=== PATIENT | female | born 1970 | race African-American/Black ===

== ENCOUNTER 2017-06-04 17:48 | Inpatient (IN) | payer MEDICARE, MEDICAID ==
[~2017-06-04] VITALS: Ht 160 cm; Wt 170.2 kg
[2017-06-04] MEDS ORDERED: IV NORMAL SALINE 1000ML BAG 1,000 ML IV ONE (18:30)
[2017-06-04] MEDS ORDERED: ONDANSETRON PF 4 MG/2 ML VIAL. IV ONE (18:30)
[2017-06-04] MEDS ORDERED: HYDROmorphone 2 MG/ML VIAL IV ONE (18:30)
[2017-06-04 18:48] LABS: BASO # 0.1 x10^3/uL (0.0-0.2); BASO % 1 % (0-3); EOS % 0 % (0-3); HEMATOCRIT 32.3 % (36.0-47.0); HEMOGLOBIN 10.6 g/dL (12.0-15.5); LYMPH # 1.1 x10^3/uL (1.0-4.8); LYMPH % 9 % (24-48); MEAN CORPUSCULAR HEMOGLOBIN 25 pg (25-35); MEAN CORPUSCULAR HGB CONC 33 g/dL (31-37); MEAN CORPUSCULAR VOLUME 76 fL (79-100); MONO % 6 % (0-9); NEUT % 84 % (31-73); PLATELET COUNT 514 x10^3/uL (140-400); RED BLOOD COUNT 4.26 x10^6/uL (3.50-5.40); RED CELL DISTRIBUTION WIDTH 17.9 % (11.5-14.5); WHITE BLOOD COUNT 11.4 x10^3/uL (4.0-11.0)
[2017-06-04 18:55] LABS: CALCIUM 10.2 mg/dL (8.5-10.1); CREATININE 2.5 mg/dL (0.6-1.0); GFR 20.6
[2017-06-04 19:00] LABS: ALBUMIN 2.8 g/dL (3.4-5.0); ALBUMIN/GLOBULIN RATIO 0.4 (1.0-1.7); TOTAL BILIRUBIN 0.8 mg/dL (0.2-1.0); TOTAL PROTEIN 9.6 g/dL (6.4-8.2)
[2017-06-04] MEDS ORDERED: ACETAMINOPHEN 325 MG TABLET. PO PRN (19:15)
[2017-06-04] MEDS ORDERED: ONDANSETRON PF 4 MG/2 ML VIAL. IV PRN (19:15)
--- NOTE | 2017-06-04 19:25 | PHYS DOC ---
Past Medical History Past Medical History: Arthritis, CHF, Other Additional Past Medical Histor: Morbid Obesity Past Surgical History: Additional Past Surgical Histo: Neck Alcohol Use: None Drug Use: None Adult General Chief Complaint Chief Complaint: KNEE SWELLING HPI HPI Patient is a 47 year old female who presents here today complaining of bilateral knee pains of been hurting her for several months now as well as decreased by mouth intake for several months as well. Patient reports she has a history of CHF and arthritis. Patient is morbidly obese. Patient reports she does not have a primary care physician is not seek any medical help in almost 2- 3 years. Patient reports her last hospital admission was for congestive heart failure approximately 2-3 years ago however she has been noncompliant with any medications since she does not have a primary care physician. Patient reports that she lives with her 20 [id number] son who helps take care of her. She reports that he is a land surveyor manager at [employer] and at [employer]. She reports that he assists her with her activities of daily living. She reports she has no nursing help at home. Patient reports that she is nonambulatory and is bedridden however she is able to scoot over the end of the bed to go the bathroom. Patient reports that her son helps care for her for other needs. Patient denies any fevers shakes chills. Patient has any diarrhea. Patient has a dysuria frequency or urgency. Patient reports she's had nonproductive cough. Patient denies any URI symptoms otherwise. Patient portion had nausea vomiting 3 -4 times today. Patient reports decreased by mouth intake times several months now. Patient denies any history of diabetes hypertension liver longer kidney problems. Patient denies any history of strokes or MIs in the past. Patient is not allergic to any medications. Patient denies any recent trauma to her knees. Patient does not appear to have any acute complaints at this time that I'm able to pinpoint. I have asked the patient what her expectations from the emergency department visit today are and she reports "stop my legs are hurting ". Patient reports that she has no primary care physician to assist her with her pain and that she just takes Tylenol Patient's physical exam finding in the ED was significant for a 47-year-old female who is morbidly obese and is not well. Patient has tenderness palpation to both knees. Patient is morbidly obese and her exam is very difficult to assess secondary to her obesity and inability to move her upper or lower extremities well. Patient's heart was regular rate and rhythm. Lungs were clear without any wheezing rales or rhonchi. Abdomen was soft nontender no rebound or guarding. Patient's lower extremities were obese and is unable to assess whether not she has edema or obesity. Patient has pain with any range of motion to her lower extremities. Patient's labs were significant for acute renal failure. This appears likely be more chronic than acute however. Patient's BUN/creatinine were 144 and 2.5. Patient had a normal anion gap and a normal bicarbonate. Patient's chloride is 90 in her bicarbonate level was 21. Assessment and plan: This is a 47-year-old female who presents here today secondary to generalized pain and weakness and inability to eat for several months now. Patient has been noncompliant with her heart failure regimen secondary to no primary care physician. Patient's last today are consistent with acute renal failure versus chronic renal failure. Patient's BUNs is 140 4T.5. I believe that this is more likely secondary to dehydration with an element of likely chronic renal insufficiency. Patient will be hydrated and will monitor her I's and O's. We will need to admit the patient for further evaluation of her renal failure/dehydration and have nephrology assist with managing her renal status. Patient was given a dose of Dilaudid here in the ED to assist her with her pain. Laboratory Tests Test 06/04/17 18:37 White Blood Count 11.4 x10^3/uL Red Blood Count 4.26 x10^6/uL Hemoglobin 10.6 g/dL Hematocrit 32.3 % Mean Corpuscular Volume 76 fL Mean Corpuscular Hemoglobin 25 pg Mean Corpuscular Hemoglobin Concent 33 g/dL Red Cell Distribution Width 17.9 % Platelet Count 514 x10^3/uL Neutrophils (%) (Auto) 84 % Lymphocytes (%) (Auto) 9 % Monocytes (%) (Auto) 6 % Eosinophils (%) (Auto) 0 % Basophils (%) (Auto) 1 % Neutrophils # (Auto) 9.6 x10^3uL Lymphocytes # (Auto) 1.1 x10^3/uL Monocytes # (Auto) 0.6 x10^3/uL Eosinophils # (Auto) 0.0 x10^3/uL Basophils # (Auto) 0.1 x10^3/uL Sodium Level 130 mmol/L Potassium Level 4.0 mmol/L Chloride Level 90 mmol/L Carbon Dioxide Level 21 mmol/L Anion Gap 19 Blood Urea Nitrogen 144 mg/dL Creatinine 2.5 mg/dL Estimated GFR (Cockcroft-Gault) 20.6 BUN/Creatinine Ratio 58 Glucose Level 109 mg/dL Calcium Level 10.2 mg/dL Total Bilirubin 0.8 mg/dL Aspartate Amino Transf (AST/SGOT) 20 U/L Alanine Aminotransferase (ALT/SGPT) 11 U/L Alkaline Phosphatase 103 U/L Total Protein 9.6 g/dL Albumin 2.8 g/dL Albumin/Globulin Ratio 0.4 Lipase 245 U/L Current Medications Medications (Trade) Dose Ordered Sig/Arcelia Route PRN Reason Start Time Stop Time Status Last Admin Dose Admin Ondansetron HCl (Zofran) 4 mg 1X ONCE IV 06/04/17 18:30 06/04/17 18:31 DC 06/04/17 18:59 4 MG Sodium Chloride 1,000 ml @ 1,000 mls/hr 1X ONCE IV 06/04/17 18:30 06/04/17 19:29 06/04/17 18:58 1,000 MLS/HR Hydromorphone HCl (Dilaudid) 0.5 mg 1X ONCE IV 06/04/17 18:30 06/04/17 18:31 DC 06/04/17 19:00 0.5 MG Ondansetron HCl (Zofran) 4 mg PRN Q8HRS PRN IV NAUSEA/VOMITING 06/04/17 19:15 06/05/17 19:14 Fentanyl Citrate (Fentanyl 2ml Vial) 50 mcg PRN Q2HR PRN IV PAIN 06/04/17 19:15 06/05/17 19:14 Sodium Chloride 1,000 ml @ 150 mls/hr Q6H40M IV 06/04/17 19:05 06/05/17 19:04 Acetaminophen (Tylenol) 650 mg PRN Q4HRS PRN PO FEVER 06/04/17 19:15 06/05/17 19:14 Review of Systems Review of Systems Constitutional: Denies fever or chills [] Eyes: Denies change in visual acuity, redness, or eye pain [] HENT: Denies nasal congestion or sore throat [] All other review systems are negative except as documented in the history of present illness portion. Current Medications Current Medications Current Medications Medications (Trade) Dose Ordered Sig/Arcelia Start Time Stop Time Status Last Admin Dose Admin Acetaminophen (Tylenol) 650 mg PRN Q4HRS PRN 06/04/17 19:15 06/05/17 19:14 DC 06/05/17 13:02 650 MG Fentanyl Citrate (Fentanyl 2ml Vial) 50 mcg PRN Q2HR PRN 06/04/17 19:15 06/05/17 19:14 DC 06/05/17 15:51 50 MCG Hydromorphone HCl (Dilaudid) 0.5 mg 1X ONCE 06/04/17 18:30 06/04/17 18:31 DC 06/04/17 19:00 0.5 MG Ondansetron HCl (Zofran) 4 mg PRN Q8HRS PRN 06/04/17 19:15 06/05/17 19:14 DC 06/05/17 15:50 4 MG Sodium Chloride 1,000 ml @ 150 mls/hr Q6H40M 06/04/17 19:05 06/05/17 19:04 DC 06/05/17 14:55 150 MLS/HR Allergies Allergies Allergies Coded Allergies Type Severity Reaction Last Updated Verified No Known Drug Allergies 06/04/17 No Physical Exam Physical Exam Constitutional: Morbidly obese. HENT: Normocephalic, atraumatic, bilateral external ears normal, Eyes: , EOMI, Neck: Normal range of motion, Cardiovascular:Heart rate regular rhythm, Lungs & Thorax: Bilateral breath sounds clear to auscultation [] Abdomen: Bowel sounds normal, Skin: Warm, dry, Extremities: Tenderness to palpation and with range of motion to her lower 70s. Neurologic: Alert and oriented X 3, normal motor function, normal sensory function, no focal deficits noted. [] Psychologic: Affect normal, judgement normal, mood normal. [] Current Patient Data Vital Signs Vital Signs Date Time Temp Pulse Resp B/P (MAP) Pulse Ox O2 Delivery O2 Flow Rate FiO2 06/04/17 19:20 118 106/63 (77) 99 Room Air 06/04/17 19:00 20 06/04/17 17:48 98.8 98.8 Lab Values Laboratory Tests Test 06/04/17 18:37 White Blood Count 11.4 x10^3/uL (4.0-11.0) H Red Blood Count 4.26 x10^6/uL (3.50-5.40) Hemoglobin 10.6 g/dL (12.0-15.5) L Hematocrit 32.3 % (36.0-47.0) L Mean Corpuscular Volume 76 fL (79-100) L Mean Corpuscular Hemoglobin 25 pg (25-35) Mean Corpuscular Hemoglobin Concent 33 g/dL (31-37) Red Cell Distribution Width 17.9 % (11.5-14.5) H Platelet Count 514 x10^3/uL (140-400) H Neutrophils (%) (Auto) 84 % (31-73) H Lymphocytes (%) (Auto) 9 % (24-48) L Monocytes (%) (Auto) 6 % (0-9) Eosinophils (%) (Auto) 0 % (0-3) Basophils (%) (Auto) 1 % (0-3) Neutrophils # (Auto) 9.6 x10^3uL (1.8-7.7) H Lymphocytes # (Auto) 1.1 x10^3/uL (1.0-4.8) Monocytes # (Auto) 0.6 x10^3/uL (0.0-1.1) Eosinophils # (Auto) 0.0 x10^3/uL (0.0-0.7) Basophils # (Auto) 0.1 x10^3/uL (0.0-0.2) Sodium Level 130 mmol/L (136-145) L Potassium Level 4.0 mmol/L (3.5-5.1) Chloride Level 90 mmol/L (98-107) L Carbon Dioxide Level 21 mmol/L (21-32) Anion Gap 19 (6-14) H Blood Urea Nitrogen 144 mg/dL (7-20) H Creatinine 2.5 mg/dL (0.6-1.0) H Estimated GFR (Cockcroft-Gault) 20.6 BUN/Creatinine Ratio 58 (6-20) H Glucose Level 109 mg/dL (70-99) H Calcium Level 10.2 mg/dL (8.5-10.1) H Total Bilirubin 0.8 mg/dL (0.2-1.0) Aspartate Amino Transferase (AST) 20 U/L (15-37) Alanine Aminotransferase (ALT) 11 U/L (14-59) L Alkaline Phosphatase 103 U/L (46-116) Total Protein 9.6 g/dL (6.4-8.2) H Albumin 2.8 g/dL (3.4-5.0) L Albumin/Globulin Ratio 0.4 (1.0-1.7) L Lipase 245 U/L (73-393) Laboratory Tests 06/04/17 18:37 Laboratory Tests 06/04/17 18:37 EKG EKG [] Radiology/Procedures Radiology/Procedures [] Course & Med Decision Making Course & Med Decision Making Pertinent Labs and Imaging studies reviewed. (See chart for details) [] Dragon Disclaimer Dragon Disclaimer This electronic medical record was generated, in whole or in part, using a voice recognition dictation system. Departure Departure Impression: Primary Impression: Acute renal failure Additional Impressions: Chronic renal insufficiency Dehydration Lower extremity pain Disposition: 01 HOME, SELF-CARE Admitting Physician: Other (reusch) Condition: STABLE Problem Qualifiers CRAIG RENE MD Jun 04, 2017 19:24
[2017-06-04] MEDS: IV NORMAL SALINE 1000ML BAG 1,000 ML IV SCH ×2 (20:42→23:07)
[2017-06-04] MEDS: fentaNYL PF VIAL 100 MCG/2 ML VIAL IV PRN (23:07)
[2017-06-04 23:59] VITALS: BP 120/69
--- NOTE | 2017-06-05 01:37 | HP ---
ADMIT DATE: 06/04/2017 CHIEF COMPLAINT: Knee pain; acute kidney injury. HISTORY OF PRESENT ILLNESS: The patient is a 47-year-old -[place] woman with catastrophic obesity, essentially bedbound who presented to the Emergency Room with bilateral knee pains. She relates that she has been diagnosed with arthritis in her knees, actually has been hurting for quite a while, but today the pain got significantly worse. She also complains of decreased p.o. intake for several months because food is not tasting right. She denies any nausea or vomiting or abdominal pain. She also reports a history of CHF, but does not have a primary care physician and has not been seen by a physician in the past couple to 3 years. She does not have a history of diabetes or high blood pressure. In the Emergency Room, the patient was found with a BUN of 144 and a creatinine of 2.5. Electrolytes with a sodium of 130, potassium 4.0, chloride at 90. The patient was therefore admitted with suspected acute kidney injury. PAST MEDICAL HISTORY: CHF and arthritis. FAMILY HISTORY: Unknown. SOCIAL HISTORY: Lives with her son. No toxic habits. ALLERGIES: No known drug allergies. HOME MEDICATIONS: None. REVIEW OF SYSTEMS: Positive as per HPI. Rest of organ system review is negative. PHYSICAL EXAMINATION: VITAL SIGNS: From today show a blood pressure of 124/70, heart rate at 106, respiratory rate at 20. She is afebrile. GENERAL: This is a massively obese 47-year-old -[place] woman, awake, in no acute distress, although seems anxious. HEENT: Shows no scleral icterus. NECK: Short and thick. LUNGS: Clear anteriorly, distant breath sounds. HEART: Regular rate and rhythm. ABDOMEN: Show no pitting edema. SKIN: Warm, soft and dry. There is a superficial abrasion on her pannus on the right abdomen. LABORATORY DATA: CBC with a WBC of 11.4, hemoglobin 10.6, platelets with an MCV of 76 and platelets of 514. Chemistries with a BUN and creatinine of 144 and 2.5, sodium of 130, potassium at 4.0. LFTs within normal. Glucose at 109, calcium at 10.2, albumin at 2.8. ASSESSMENT AND PLAN: The patient is a 47-year-old morbidly obese woman with known history of congestive heart failure, now presenting with generalized malaise, myalgias and potential weight loss and poor appetite for several months. She was found with acute possibly on chronic kidney injury. She will be started on IV fluids. Electrolytes will be repleted. Nephrology consult will be obtained. I suspect that some of the renal failure is actually secondary to dehydration, possibly the patient is being unable to take care of herself when son leaves and goes to work and may need placement. As the patient is chronically bedridden, Lovenox can be omitted and (and should not be used with her current creatinine), will start on H2 blockers b.i.d. as well. COLLINS MENDOZA MD DR: LICO/nts JOB#: [id number] / [id number] CHRIS
[2017-06-05] MEDS: fentaNYL PF VIAL 100 MCG/2 ML VIAL IV PRN ×5 (02:05→15:51)
[2017-06-05 03:59] VITALS: BP 116/72
--- NOTE | 2017-06-05 05:19 | ACF ---
Admission Forms Criteria RENAL FAILURE, ACUTE Clinical Indications for Admission to Inpatient Care ( Place 'X' for any and all applicable criteria): Admission is indicated for ALL (if I & II) or III of the following [A](2)(3)(4)( 5)(6)(7): [ ]I. Acute renal failure as indicated by ANY ONE of the following: [ ]a) A 3-fold rise in serum creatinine from baseline [ ]b) Serum creatinine greater than 4 mg/dL (354 micromoles/L) with an acute rise greater than 0.5 mg/dL (44.2 micromoles/L) [ ]c) Reduction of more than 75% in estimated glomerular filtration rate from baseline [ ]d) Estimated glomerular filtration rate less than 35 mL/min/1.73m2 (0.59mL/sec/1.73m2)in a child up to 18 years of age [ ]e) Anuria indicated by ALL of the following: [ ]i) Adequate volume status [ ]ii) Cessation of urine output indicated by ANY ONE of the following: [ ]1) Urine output less than 0.3 mL/kg/hr for 24 hours [ ]2) Anuria (urine output less than 0.1 mL/kg/ hr) for 12 hours [ ] II. Renal failure cannot be managed in an outpatient setting or observational care setting as indicating by ANY ONE of the following: [ ]a) Altered mental status that is severe or persistent [ ]b) Volume overload or Respiratory distress (eg, clinically significant pulmonary edema) that is severe or persistent [ ]c) Cardiac arrhythmias of immediate concern [ ]d) Hemodynamic instability [ ]e) Clinically significant electrolyte abnormality that requires inpatient care (eg, hyperkalemia with severe ECG findings)[B] [ ]f) Clinically significant metabolic abnormality (eg, acidosis) that is severe or persistent [ ]g) Acute treatment of renal failure (eg, renal replacement therapy) not feasible or appropriate in observational care setting [ ]h) Clinical situation too unstable or uncertain (eg, inadequate urine output, ongoing decline in renal function, etiology unclear) [ ]i) Necessary support and caregiver ability to comply with outpatient treatment cannot be arranged in observation care timeframe (eg, within 24 hours) [ ]j) Other significant finding or clinical condition judged not to be within scope of observation care [X]III.General contraindications and/or Inappropriate clinical situations for Observational Care in patients with Acute Renal Failure, when ANY ONE of the following is required: [X]a) Prediction of prolongation of LOS based on ANY ONE of the following may be considered as a contraindication for observational care 2, 3, 4, 5, 6, 7, 8 , 9, 10, 11 [ ]i) Age > 65 yrs. [ ]ii) Patient arriving by ambulance [ ]iii) Patient with high acuity [X]iv) Patient requiring vital sign monitoring [ ]v) Patient on IV medication [ ]b) Systolic blood pressures 180mmHg 3,12 [ ]c) Patient with altered mental status including delirium and other alteration of consciousness, (3) [ ]d) Patient whose discharge disposition will be to a [facility]p home or rehabilitation home should not be managed in Emergency Department Observation Unit. CMS rule requires 3 days hospital stay before such placement.3,13 [ ]e) Patient with failure to thrive due to broad array of etiologies 3, 16,17 [ ]f) Inability to ambulate 3,14 Extended stay beyond goal length of stay may be needed for(13) [ ]a) Continuing uremic complications [ ]b) Care for comorbidities [ ]c) acute renal failure [ ]d) Need for dialysis The original [employer] content created by [employer] has been revised. The portions of the content which have been revised are identified through the use of italic text or in bold, and [facility] has neither reviewed nor approved the modified material. All other unmodified content is copyright [employer]. Please see references footnoted in the original [facility] edition 2016 Admission Criteria Met?: Yes JULEE DORSEY Jun 05, 2017 05:19
[2017-06-05 07:00] VITALS: BP 101/69
[2017-06-05 07:08] LABS: CALCIUM 8.2 mg/dL (8.5-10.1); CREATININE 1.8 mg/dL (0.6-1.0); GFR 36.5; POTASSIUM 3.8 mmol/L (3.5-5.1)
[2017-06-05] MEDS: IV NORMAL SALINE 1000ML BAG 1,000 ML IV SCH ×2 (08:40→14:55)
--- NOTE | 2017-06-05 09:14 | PDOC ---
PROGRESS NOTES Chief Complaint Chief Complaint PHILIP ASSESSMENT AND PLAN; 1. PHILIP/?CKD: improving, with uremia resolved (? BUN 144-11 in 12hrs?). suspect at least component of dehydration. rpt BMP 2. CHF: by hx; has not seen MD in several years, no meds. echo, cardiology consult 3. Hyponatremia: resolved 4. Hypokalemia: resolved 5. Knee pain: poss OA. obtain flat films. treat symptomatically for now. 6. Decub ulcers: wound care consult 7. FTT: OT/PT eval; case management for placement 8. Depression: new dx. start ativan, zoloft 8. Prophylaxis: SCDs History of Present Illness History of Present Illness everything is painful; crying. Vitals Vitals Vital Signs Date Time Temp Pulse Resp B/P (MAP) Pulse Ox O2 Delivery O2 Flow Rate FiO2 06/05/17 08:40 100 06/05/17 07:56 18 06/05/17 03:59 98.5 105 116/72 (87) Room Air 98.5 Physical Exam Physical Exam flat affect, tearful General: Alert, No acute distress Heart: Regular rate Lungs: Clear Abdomen: Normal bowel sounds, Other (massive obesity) Extremities: No edema Skin: Other (superficial desquamation are on R lat pannus, pressure ulcers) Labs LABS Laboratory Tests Test 06/04/17 18:37 06/05/17 05:40 White Blood Count 11.4 x10^3/uL (4.0-11.0) Red Blood Count 4.26 x10^6/uL (3.50-5.40) Hemoglobin 10.6 g/dL (12.0-15.5) Hematocrit 32.3 % (36.0-47.0) Mean Corpuscular Volume 76 fL (79-100) Mean Corpuscular Hemoglobin 25 pg (25-35) Mean Corpuscular Hemoglobin Concent 33 g/dL (31-37) Red Cell Distribution Width 17.9 % (11.5-14.5) Platelet Count 514 x10^3/uL (140-400) Neutrophils (%) (Auto) 84 % (31-73) Lymphocytes (%) (Auto) 9 % (24-48) Monocytes (%) (Auto) 6 % (0-9) Eosinophils (%) (Auto) 0 % (0-3) Basophils (%) (Auto) 1 % (0-3) Neutrophils # (Auto) 9.6 x10^3uL (1.8-7.7) Lymphocytes # (Auto) 1.1 x10^3/uL (1.0-4.8) Monocytes # (Auto) 0.6 x10^3/uL (0.0-1.1) Eosinophils # (Auto) 0.0 x10^3/uL (0.0-0.7) Basophils # (Auto) 0.1 x10^3/uL (0.0-0.2) Sodium Level 130 mmol/L (136-145) 141 mmol/L (136-145) Potassium Level 4.0 mmol/L (3.5-5.1) 3.8 mmol/L (3.5-5.1) Chloride Level 90 mmol/L (98-107) 103 mmol/L (98-107) Carbon Dioxide Level 21 mmol/L (21-32) 31 mmol/L (21-32) Anion Gap 19 (6-14) 7 (6-14) Blood Urea Nitrogen 144 mg/dL (7-20) 16 mg/dL (7-20) Creatinine 2.5 mg/dL (0.6-1.0) 1.8 mg/dL (0.6-1.0) Estimated GFR (Cockcroft-Gault) 20.6 36.5 BUN/Creatinine Ratio 58 (6-20) Glucose Level 109 mg/dL (70-99) 139 mg/dL (70-99) Calcium Level 10.2 mg/dL (8.5-10.1) 8.2 mg/dL (8.5-10.1) Total Bilirubin 0.8 mg/dL (0.2-1.0) Aspartate Amino Transf (AST/SGOT) 20 U/L (15-37) Alanine Aminotransferase (ALT/SGPT) 11 U/L (14-59) Alkaline Phosphatase 103 U/L (46-116) Total Protein 9.6 g/dL (6.4-8.2) Albumin 2.8 g/dL (3.4-5.0) Albumin/Globulin Ratio 0.4 (1.0-1.7) Lipase 245 U/L (73-393) COLLINS MENDOZA MD Jun 05, 2017 09:13
--- NOTE | 2017-06-05 09:24 | PDOC2 ---
CONSULT Date of Consult Date of Consult DATE: 06/05/17 TIME: :22 Reason for Consult Reason for Consult: PHILIP Referring Physician Referring Physician: Dr Villarreal Identification/Chief Complaint Chief Complaint Knee pain Problems: Source Source: Chart review, Patient History of Present Illness Reason for Visit: as dictated Social History No ALCOHOL: none Drugs: None Lives: with Family Current Problem List Problem List Problems Medical Problems: (1) Acute renal failure Status: Acute (2) Chronic renal insufficiency Status: Acute (3) Dehydration Status: Acute (4) Lower extremity pain Status: Acute Current Medications Current Medications Current Medications Ondansetron HCl (Zofran) 4 mg 1X ONCE IV Last administered on 06/04/17 18:59 ; Start 06/04/17 at 18:30; Stop 06/04/17 at 18:31; Status DC Sodium Chloride 1,000 ml @ 1,000 mls/hr 1X ONCE IV Last administered on 18:58; Start 06/04/17 at 18:30; Stop 06/04/17 at 19:29; Status DC Hydromorphone HCl (Dilaudid) 0.5 mg 1X ONCE IV Last administered on 06/04/17 19:00; Start 06/04/17 at 18:30; Stop 06/04/17 at 18:31; Status DC Ondansetron HCl (Zofran) 4 mg PRN Q8HRS PRN IV NAUSEA/VOMITING; Start 06/04/17 at 19:15; Stop 06/05/17 at 19:14 Fentanyl Citrate (Fentanyl 2ml Vial) 50 mcg PRN Q2HR PRN IV PAIN Last administered on 06/05/17 07:56; Start 06/04/17 at 19:15; Stop 06/05/17 at 19:14 Sodium Chloride 1,000 ml @ 150 mls/hr Q6H40M IV Last administered on 08:40; Start 06/04/17 at 19:05; Stop 06/05/17 at 19:04 Acetaminophen (Tylenol) 650 mg PRN Q4HRS PRN PO FEVER; Start 06/04/17 at 19:15 ; Stop 06/05/17 at 19:14 Allergies Allergies: Coded Allergies: No Known Drug Allergies (Unverified , 06/04/17) ROS Review of System GEN: no Fevers no Chills EYES: no new Visual Complaints ENT: no EN Drainage no Hearing deficiets CVS: no Orthopnea no CP RESP: no SOB no CARTER GI: + Nausea + Vomiting : no Dysuria no Urgency dec UO HEME: no easy bruising no Palp Ly Nodes NEURO no Focal Weakness no Sz PSYCH: no Suicidal Ideation ? Depression + Anxiety at times SKIN: no Rashes ENDO: no Polyuria or Polydipsia no Hot/Cold Intolerance MU SK: + Arthraigia Knees no Myalgia Physical Exam Physical Exam General Appearance: Awake Alert Oriented x 2-3 In min Distress from knee pain; morbidly obese bedbound x 5 + yrs Eyes: VIsion Unchanged Conjunctiva Normal EN: No EN Drainage Mucous Memb. dry Neck: no JVD no JVP Supple no Thyromegaly short neck CVS: S1 S2 no audible Murmur No Gallop No Rub no Edema fatty lower ext distal HS Resp: no Rales no Rhonchi no Acc. Muscle use - distal BS GI: BS +ve NO Bruit Non Tender Non Distended - morbidly iobese with multiple skin folds : no CVA tenderness; no Suprapubic Tenderness SKIN: no Rashes Breast Exam not performed Mu.Sk: Adequate ROM in upper ext, limited in lowe no visiblle Muscle Atrophy Heme: Unable to palpate Obvious LAD no palp Splenomegaly NEURO: dec Strength adequate Tone no Asterixis Psych: + Depressed no Active hallucination Vital Signs Vital Signs Date Time Temp Pulse Resp B/P (MAP) Pulse Ox O2 Delivery O2 Flow Rate FiO2 06/05/17 08:40 100 06/05/17 07:56 18 06/05/17 03:59 98.5 105 116/72 (87) Room Air 98.5 Assessment & Plan PHILIP - suspect VMN from Poor PO intake and some NV. Current FLuid and E-lyte status does not necessitate emergent need for Dialysis. No Uremic S/s. Not sure if labs from yest vs today are grossly discrepant. ? of Uremia - based on today's labs and current s/s she appears dehydrated to me. mentally she is NOT Encephalopathic currently vol depeltion - IVF as ordered Oliguria - IVF as ordered, bl Scan. Renl US Discussed Plan of Care and prognosis etc. at length with family. Labs Labs Laboratory Tests Test 06/04/17 18:37 06/05/17 05:40 White Blood Count 11.4 x10^3/uL (4.0-11.0) Red Blood Count 4.26 x10^6/uL (3.50-5.40) Hemoglobin 10.6 g/dL (12.0-15.5) Hematocrit 32.3 % (36.0-47.0) Mean Corpuscular Volume 76 fL (79-100) Mean Corpuscular Hemoglobin 25 pg (25-35) Mean Corpuscular Hemoglobin Concent 33 g/dL (31-37) Red Cell Distribution Width 17.9 % (11.5-14.5) Platelet Count 514 x10^3/uL (140-400) Neutrophils (%) (Auto) 84 % (31-73) Lymphocytes (%) (Auto) 9 % (24-48) Monocytes (%) (Auto) 6 % (0-9) Eosinophils (%) (Auto) 0 % (0-3) Basophils (%) (Auto) 1 % (0-3) Neutrophils # (Auto) 9.6 x10^3uL (1.8-7.7) Lymphocytes # (Auto) 1.1 x10^3/uL (1.0-4.8) Monocytes # (Auto) 0.6 x10^3/uL (0.0-1.1) Eosinophils # (Auto) 0.0 x10^3/uL (0.0-0.7) Basophils # (Auto) 0.1 x10^3/uL (0.0-0.2) Sodium Level 130 mmol/L (136-145) 141 mmol/L (136-145) Potassium Level 4.0 mmol/L (3.5-5.1) 3.8 mmol/L (3.5-5.1) Chloride Level 90 mmol/L (98-107) 103 mmol/L (98-107) Carbon Dioxide Level 21 mmol/L (21-32) 31 mmol/L (21-32) Anion Gap 19 (6-14) 7 (6-14) Blood Urea Nitrogen 144 mg/dL (7-20) 16 mg/dL (7-20) Creatinine 2.5 mg/dL (0.6-1.0) 1.8 mg/dL (0.6-1.0) Estimated GFR (Cockcroft-Gault) 20.6 36.5 BUN/Creatinine Ratio 58 (6-20) Glucose Level 109 mg/dL (70-99) 139 mg/dL (70-99) Calcium Level 10.2 mg/dL (8.5-10.1) 8.2 mg/dL (8.5-10.1) Total Bilirubin 0.8 mg/dL (0.2-1.0) Aspartate Amino Transf (AST/SGOT) 20 U/L (15-37) Alanine Aminotransferase (ALT/SGPT) 11 U/L (14-59) Alkaline Phosphatase 103 U/L (46-116) Total Protein 9.6 g/dL (6.4-8.2) Albumin 2.8 g/dL (3.4-5.0) Albumin/Globulin Ratio 0.4 (1.0-1.7) Lipase 245 U/L (73-393) Laboratory Tests Test 06/04/17 18:37 06/05/17 05:40 White Blood Count 11.4 x10^3/uL (4.0-11.0) Red Blood Count 4.26 x10^6/uL (3.50-5.40) Hemoglobin 10.6 g/dL (12.0-15.5) Hematocrit 32.3 % (36.0-47.0) Mean Corpuscular Volume 76 fL (79-100) Mean Corpuscular Hemoglobin 25 pg (25-35) Mean Corpuscular Hemoglobin Concent 33 g/dL (31-37) Red Cell Distribution Width 17.9 % (11.5-14.5) Platelet Count 514 x10^3/uL (140-400) Neutrophils (%) (Auto) 84 % (31-73) Lymphocytes (%) (Auto) 9 % (24-48) Monocytes (%) (Auto) 6 % (0-9) Eosinophils (%) (Auto) 0 % (0-3) Basophils (%) (Auto) 1 % (0-3) Neutrophils # (Auto) 9.6 x10^3uL (1.8-7.7) Lymphocytes # (Auto) 1.1 x10^3/uL (1.0-4.8) Monocytes # (Auto) 0.6 x10^3/uL (0.0-1.1) Eosinophils # (Auto) 0.0 x10^3/uL (0.0-0.7) Basophils # (Auto) 0.1 x10^3/uL (0.0-0.2) Sodium Level 130 mmol/L (136-145) 141 mmol/L (136-145) Potassium Level 4.0 mmol/L (3.5-5.1) 3.8 mmol/L (3.5-5.1) Chloride Level 90 mmol/L (98-107) 103 mmol/L (98-107) Carbon Dioxide Level 21 mmol/L (21-32) 31 mmol/L (21-32) Anion Gap 19 (6-14) 7 (6-14) Blood Urea Nitrogen 144 mg/dL (7-20) 16 mg/dL (7-20) Creatinine 2.5 mg/dL (0.6-1.0) 1.8 mg/dL (0.6-1.0) Estimated GFR (Cockcroft-Gault) 20.6 36.5 BUN/Creatinine Ratio 58 (6-20) Glucose Level 109 mg/dL (70-99) 139 mg/dL (70-99) Calcium Level 10.2 mg/dL (8.5-10.1) 8.2 mg/dL (8.5-10.1) Total Bilirubin 0.8 mg/dL (0.2-1.0) Aspartate Amino Transf (AST/SGOT) 20 U/L (15-37) Alanine Aminotransferase (ALT/SGPT) 11 U/L (14-59) Alkaline Phosphatase 103 U/L (46-116) Total Protein 9.6 g/dL (6.4-8.2) Albumin 2.8 g/dL (3.4-5.0) Albumin/Globulin Ratio 0.4 (1.0-1.7) Lipase 245 U/L (73-393) DANIELLA RIZZO MD Jun 05, 2017 09:23
[2017-06-05] MEDS ORDERED: MAGNESIUM SULFATE 2GM 50 ML IV PRN (09:30)
[2017-06-05 10:13] LABS: CREATININE 2.1 mg/dL (0.6-1.0); GFR 30.5; POTASSIUM 3.3 mmol/L (3.5-5.1)
[2017-06-05 11:00] VITALS: BP 98/60
--- NOTE | 2017-06-05 12:02 | RAD ---
Indication acute renal disease. Grayscale imaging targeted to the kidneys was performed. The right kidney measures 11.4 x 4.6 x 5.2 cm. There is a hypoechoic 1.8 cm mass associated with the kidney compatible with a cyst. Hydronephrosis or definite solid mass is not seen. The left kidney measures 11.9 x 5.2 x 6.2 cm. There is a hypoechoic 3.2 cm mass associated with the left kidney also compatible with a cyst. A solid mass or hydronephrosis is not seen. The urinary bladder appeared grossly normal. IMPRESSION: Bilateral renal cysts otherwise morphologically unremarkable imaging of the kidneys
[2017-06-05] MEDS: SERTRALINE 25 MG TABLET. PO SCH (13:01)
[2017-06-05] MEDS: LORazepam 0.5 MG TABLET PO PRN (13:02)
[2017-06-05 15:00] VITALS: BP 119/66
[2017-06-05 16:36] LABS: BILIRUBIN,URINE NEGATIVE (NEG); GLUCOSE,URINE NEGATIVE (NEG); NITRITE,URINE NEGATIVE (NEG); PH,URINE 5.5; PROTEIN,URINE NEGATIVE (NEG-TRACE)
[2017-06-05 17:02] LABS: BACTERIA,URINE MANY /HPF (0-FEW); RBC,URINE 0 /HPF (0-2); SQUAMOUS EPITHELIAL CELL,UR MOD /LPF
[2017-06-05 19:00] VITALS: BP 115/71
[2017-06-05] MEDS ORDERED: HYDROcodone/APAP 7.5/325MG 1 TAB TABLET PO PRN (19:30)
[2017-06-05] MEDS: HYDROcodone/APAP 7.5/325MG 1 TAB TABLET PO PRN (20:00)
[2017-06-05 22:47] VITALS: BP 109/66
--- NOTE | 2017-06-05 23:40 | CONS ---
DATE OF CONSULTATION: HISTORY OF PRESENT ILLNESS: The patient is a 47-year-old -[place] female with severe exogenous obesity. She has been bedbound for almost 5 years. She developed acute onset knee pain and was brought to the ER for further evaluation. She has also had decreased p.o. intake for several months. She has had some nausea and vomiting. The family claims she has a history of CHF; however, she has not seen a physician in a long time, i.e., at least 2-3 years. They do not know what medication she is on. Her last CHF admission was a few years ago. She has a 27-year-old son who works at a local fast food [employer] and a sister with ____. She does take Tylenol from time to time. Denies NSAID use. At presentation, her sodium was 130, gap of 19, BUN 144, creatinine of 2.4, calcium of 10.2. Post IV fluid this morning her BUN is down to 16 and her creatinine is down to 1.8. Her son tells me that she needs diuretics to get the edema down and then her knee pain will get better. PAST MEDICAL HISTORY: 1. As mentioned previously, congestive heart failure, details not known. 2. Sleep apnea. 3. Morbid exogenous obesity. 4. Heartburn, hysterectomy, section, previous urinary tract infection, urinary incontinence, arthritis, anemia, and pressure ulcer in the past. FAMILY HISTORY: She is not aware of known kidney problems. SOCIAL HISTORY: Lives with son. Nonsmoker, nondrinker at this time. For rest of details, see electronic records. DANIELLA RIZZO MD DR: JULIANNA/maricarmen JOB#: [id number] / [id number]
[2017-06-06] MEDS: ONDANSETRON PF 4 MG/2 ML VIAL. IV PRN ×2 (03:23→09:27)
[2017-06-06] MEDS ORDERED: NO HOME MEDS (04:09)
[2017-06-06] MEDS: HYDROcodone/APAP 7.5/325MG 1 TAB TABLET PO PRN ×3 (04:33→15:49)
[2017-06-06 07:00] VITALS: BP 117/69
[2017-06-06 07:18] LABS: BASO % 0 % (0-3); EOS % 0 % (0-3); HEMATOCRIT 33.6 % (36.0-47.0); HEMOGLOBIN 10.6 g/dL (12.0-15.5); LYMPH # 1.2 x10^3/uL (1.0-4.8); LYMPH % 10 % (24-48); MEAN CORPUSCULAR HEMOGLOBIN 25 pg (25-35); MEAN CORPUSCULAR HGB CONC 32 g/dL (31-37); MEAN CORPUSCULAR VOLUME 79 fL (79-100); MONO % 5 % (0-9); NEUT % 84 % (31-73); PLATELET COUNT 431 x10^3/uL (140-400); RED BLOOD COUNT 4.25 x10^6/uL (3.50-5.40); RED CELL DISTRIBUTION WIDTH 18.2 % (11.5-14.5); RETIC COUNT 1.8 % (0.5-2.5); WHITE BLOOD COUNT 11.6 x10^3/uL (4.0-11.0)
[2017-06-06 07:51] LABS: ALBUMIN 2.5 g/dL (3.4-5.0); CALCIUM 10.2 mg/dL (8.5-10.1); CREATININE 1.7 mg/dL (0.6-1.0); PHOSPHORUS 3.9 mg/dL (2.6-4.7)
[2017-06-06 07:52] LABS: % SAT IRON 15 % (15-34); IRON,SERUM 30 ug/dL (50-170)
[2017-06-06 07:57] LABS: POTASSIUM 2.8 mmol/L (3.5-5.1)
--- NOTE | 2017-06-06 09:01 | PDOC ---
SUBJECTIVE ROS PHILIP DOing and feeling a littl better today CVS: no Orthopnea, no CP RESP: no SOB, no CARTER GI: min Nausea, ? Vomiting : no Dysuria, no Urgency - jolly placed OBJECTIVE Vital Signs Vital Signs Date Time Temp Pulse Resp B/P (MAP) Pulse Ox O2 Delivery O2 Flow Rate FiO2 06/06/17 07:00 97.8 102 20 117/69 (85) 99 Room Air 97.8 I & 0 Intake and Output 06/06/17 07:00 Intake Total 1040 ml Output Total 1250 ml Balance -210 ml Intake Oral 1040 ml Output Urine Total 1250 ml PHYSICAL EXAM Physical Exam General Appearance: Awake Alert Oriented x 2-3 In min Distress from knee pain; morbidly obese bedbound x 5 + yrs Eyes: VIsion Unchanged Conjunctiva Normal EN: No EN Drainage Mucous Memb. dry Neck: no JVD no JVP Supple no Thyromegaly short neck CVS: S1 S2 no audible Murmur No Gallop No Rub no Edema fatty lower ext distal HS Resp: no Rales no Rhonchi no Acc. Muscle use - distal BS GI: BS +ve NO Bruit Non Tender Non Distended - morbidly iobese with multiple skin folds : no CVA tenderness; no Suprapubic Tenderness Assessment & Plan PHILIP - suspect VMN from Poor PO intake and some NV. Current FLuid and E-lyte status does not necessitate emergent need for Dialysis. No Uremic S/s currently. Creat/ UO is better with IVF ? of Uremia - based on today's labs and current s/s she appears dehydrated to me. mentally she is NOT Encephalopathic currently vol depeltion - IVF as ordered Oliguria - better after IVF as ordered, bl Scan. Renl US WNl Low K - add to IVF ^ed Bun/ Creat Ratio - ? Need for ECHO Discussed Plan of Care and prognosis etc. at length with family. COMMENT/RELEVANT DATA Meds Current Medications Medications (Trade) Dose Ordered Sig/Arcelia Start Time Stop Time Status Last Admin Dose Admin Acetaminophen (Tylenol) 650 mg PRN Q4HRS PRN 06/04/17 19:15 06/05/17 19:14 DC 06/05/17 13:02 650 MG Acetaminophen/ Hydrocodone Bitart (Lortab 7.5/325) 2 tab PRN Q4HRS PRN 06/05/17 19:30 7/23/17 04:33 2 TAB Fentanyl Citrate (Fentanyl 2ml Vial) 50 mcg PRN Q2HR PRN 06/04/17 19:15 06/05/17 19:14 DC 06/05/17 15:51 50 MCG Hydromorphone HCl (Dilaudid) 0.5 mg 1X ONCE 06/04/17 18:30 06/04/17 18:31 DC 06/04/17 19:00 0.5 MG Lorazepam (Ativan) 0.5 mg PRN Q8HRS PRN 06/05/17 10:45 06/05/17 13:02 0.5 MG Magnesium Sulfate/ Dextrose 50 ml @ 25 mls/hr PRN DAILY PRN 06/05/17 09:30 Ondansetron HCl (Zofran) 4 mg PRN Q4HRS PRN 06/06/17 03:15 06/07/17 03:14 06/06/17 03:23 4 MG Sertraline HCl (Zoloft) 25 mg DAILY 06/05/17 11:30 06/05/17 13:01 25 MG Sodium Chloride 1,000 ml @ 150 mls/hr Q6H40M 06/04/17 19:05 06/05/17 19:04 DC 06/05/17 14:55 150 MLS/HR Lab Laboratory Tests Test 06/05/17 09:51 06/05/17 16:00 06/06/17 05:25 Sodium Level 138 mmol/L (136-145) 141 mmol/L (136-145) Potassium Level 3.3 mmol/L (3.5-5.1) 2.8 mmol/L (3.5-5.1) Chloride Level 97 mmol/L (98-107) 100 mmol/L (98-107) Carbon Dioxide Level 21 mmol/L (21-32) 21 mmol/L (21-32) Anion Gap 20 (6-14) 20 (6-14) Blood Urea Nitrogen 138 mg/dL (7-20) 118 mg/dL (7-20) Creatinine 2.1 mg/dL (0.6-1.0) 1.7 mg/dL (0.6-1.0) Estimated GFR (Cockcroft-Gault) 30.5 39.0 Glucose Level 112 mg/dL (70-99) 79 mg/dL (70-99) Calcium Level 9.0 mg/dL (8.5-10.1) 10.2 mg/dL (8.5-10.1) Urine Collection Type Unknown Urine Color Yellow Urine Clarity Cloudy Urine pH 5.5 Urine Specific [place] 1.015 Urine Protein Negative mg/dL (NEG-TRACE) Urine Glucose (UA) Negative mg/dL (NEG) Urine Ketones (Stick) Negative mg/dL (NEG) Urine Blood Small (NEG) Urine Nitrite Negative (NEG) Urine Bilirubin Negative (NEG) Urine Urobilinogen Dipstick 1.0 mg/dL (0.2 mg/dL) Urine Leukocyte Esterase Moderate (NEG) Urine RBC 0 /HPF (0-2) Urine WBC 5-10 /HPF (0-4) Urine Squamous Epithelial Cells Mod /LPF Urine Transitional Epithelial Cells Few /LPF Urine Bacteria Many /HPF (0-FEW) Urine Hyaline Casts Moderate /HPF White Blood Count 11.6 x10^3/uL (4.0-11.0) Red Blood Count 4.25 x10^6/uL (3.50-5.40) Hemoglobin 10.6 g/dL (12.0-15.5) Hematocrit 33.6 % (36.0-47.0) Mean Corpuscular Volume 79 fL (79-100) Mean Corpuscular Hemoglobin 25 pg (25-35) Mean Corpuscular Hemoglobin Concent 32 g/dL (31-37) Red Cell Distribution Width 18.2 % (11.5-14.5) Platelet Count 431 x10^3/uL (140-400) Neutrophils (%) (Auto) 84 % (31-73) Lymphocytes (%) (Auto) 10 % (24-48) Monocytes (%) (Auto) 5 % (0-9) Eosinophils (%) (Auto) 0 % (0-3) Basophils (%) (Auto) 0 % (0-3) Neutrophils # (Auto) 9.8 x10^3uL (1.8-7.7) Lymphocytes # (Auto) 1.2 x10^3/uL (1.0-4.8) Monocytes # (Auto) 0.5 x10^3/uL (0.0-1.1) Eosinophils # (Auto) 0.1 x10^3/uL (0.0-0.7) Basophils # (Auto) 0.0 x10^3/uL (0.0-0.2) Reticulocyte Count (auto) 1.8 % (0.5-2.5) Phosphorus Level 3.9 mg/dL (2.6-4.7) Magnesium Level 2.0 mg/dL (1.8-2.4) Iron Level 30 ug/dL (50-170) Total Iron Binding Capacity 194 ug/dL (250-450) Iron Saturation 15 % (15-34) Ferritin 739 ng/mL (8-252) Albumin 2.5 g/dL (3.4-5.0) DANIELLA RIZZO MD Jun 06, 2017 09:01
[2017-06-06] MEDS ORDERED: POTASSIUM CHLORIDE 20 MEQ TABLET.ER. PO ONE ×2 (09:15→12:00)
[2017-06-06] MEDS: SERTRALINE 25 MG TABLET. PO SCH (09:27)
[2017-06-06 10:53] VITALS: BP 120/72
[2017-06-06] MEDS ORDERED: IV NORMAL SALINE 1000ML BAG 1,000 ML IV SCH (13:15)
--- NOTE | 2017-06-06 13:19 | PDOC ---
PROGRESS NOTES Chief Complaint Chief Complaint acute uremic renal failure, azotemia ASSESSMENT AND PLAN; 1. PHILIP/ on poss CKD: improving, with uremia better, cont IV fluid 2. CHF: by hx; echo, 3. Hyponatremia: resolved 4. Hypokalemia: resolved 5. Knee pain: probable OA. obtain flat films try lidoderm patch, consult physiatry 6. Decub ulcers: wound care consult 7. FTT: OT/PT eval; case management for placement 8. Depression: new dx. start ativan, zoloft 9. morbid obesity, BMI 65, w/ poor habitus and deconditioning and very limited mobility History of Present Illness History of Present Illness less emotional today has multiple visitors in room for support knee pain, weakness, affect seems very flat, she is negative in responses Vitals Vitals Vital Signs Date Time Temp Pulse Resp B/P (MAP) Pulse Ox O2 Delivery O2 Flow Rate FiO2 06/06/17 10:53 97.8 104 20 120/72 (88) 99 Room Air 97.8 Physical Exam Physical Exam flat affect, distant, some tangential, no encephalopathy General: Alert, Cooperative, No acute distress Heart: Regular rate Lungs: Clear Abdomen: Normal bowel sounds, Other (massive obesity) Extremities: No edema, Other (chronic skin change of minor stasis without current edema) Skin: No rashes, Other (superficial desquamation are on R lat pannus, pressure ulcers) Labs LABS Laboratory Tests Test 06/05/17 16:00 06/06/17 05:25 Urine Collection Type Unknown Urine Color Yellow Urine Clarity Cloudy Urine pH 5.5 Urine Specific Inlet 1.015 Urine Protein Negative mg/dL (NEG-TRACE) Urine Glucose (UA) Negative mg/dL (NEG) Urine Ketones (Stick) Negative mg/dL (NEG) Urine Blood Small (NEG) Urine Nitrite Negative (NEG) Urine Bilirubin Negative (NEG) Urine Urobilinogen Dipstick 1.0 mg/dL (0.2 mg/dL) Urine Leukocyte Esterase Moderate (NEG) Urine RBC 0 /HPF (0-2) Urine WBC 5-10 /HPF (0-4) Urine Squamous Epithelial Cells Mod /LPF Urine Transitional Epithelial Cells Few /LPF Urine Bacteria Many /HPF (0-FEW) Urine Hyaline Casts Moderate /HPF Urine Random Sodium 24 mmol/L (Not Estab.) White Blood Count 11.6 x10^3/uL (4.0-11.0) Red Blood Count 4.25 x10^6/uL (3.50-5.40) Hemoglobin 10.6 g/dL (12.0-15.5) Hematocrit 33.6 % (36.0-47.0) Mean Corpuscular Volume 79 fL (79-100) Mean Corpuscular Hemoglobin 25 pg (25-35) Mean Corpuscular Hemoglobin Concent 32 g/dL (31-37) Red Cell Distribution Width 18.2 % (11.5-14.5) Platelet Count 431 x10^3/uL (140-400) Neutrophils (%) (Auto) 84 % (31-73) Lymphocytes (%) (Auto) 10 % (24-48) Monocytes (%) (Auto) 5 % (0-9) Eosinophils (%) (Auto) 0 % (0-3) Basophils (%) (Auto) 0 % (0-3) Neutrophils # (Auto) 9.8 x10^3uL (1.8-7.7) Lymphocytes # (Auto) 1.2 x10^3/uL (1.0-4.8) Monocytes # (Auto) 0.5 x10^3/uL (0.0-1.1) Eosinophils # (Auto) 0.1 x10^3/uL (0.0-0.7) Basophils # (Auto) 0.0 x10^3/uL (0.0-0.2) Reticulocyte Count (auto) 1.8 % (0.5-2.5) Sodium Level 141 mmol/L (136-145) Potassium Level 2.8 mmol/L (3.5-5.1) Chloride Level 100 mmol/L (98-107) Carbon Dioxide Level 21 mmol/L (21-32) Anion Gap 20 (6-14) Blood Urea Nitrogen 118 mg/dL (7-20) Creatinine 1.7 mg/dL (0.6-1.0) Estimated GFR (Cockcroft-Gault) 39.0 Glucose Level 79 mg/dL (70-99) Calcium Level 10.2 mg/dL (8.5-10.1) Phosphorus Level 3.9 mg/dL (2.6-4.7) Magnesium Level 2.0 mg/dL (1.8-2.4) Iron Level 30 ug/dL (50-170) Total Iron Binding Capacity 194 ug/dL (250-450) Iron Saturation 15 % (15-34) Ferritin 739 ng/mL (8-252) Albumin 2.5 g/dL (3.4-5.0) Review of Systems Review of Systems knee pain weakness lethargy Assessment and Plan Assessmemt and Plan Problems Medical Problems: (1) Acute renal failure Status: Acute (2) Chronic renal insufficiency Status: Acute (3) Dehydration Status: Acute (4) Lower extremity pain Status: Acute Problems: Comment Review of Relevant I have reviewed the following items negra (where applicable) has been applied. Labs Laboratory Tests Test 06/04/17 18:37 06/05/17 05:40 06/05/17 09:51 06/05/17 16:00 White Blood Count 11.4 x10^3/uL (4.0-11.0) Red Blood Count 4.26 x10^6/uL (3.50-5.40) Hemoglobin 10.6 g/dL (12.0-15.5) Hematocrit 32.3 % (36.0-47.0) Mean Corpuscular Volume 76 fL (79-100) Mean Corpuscular Hemoglobin 25 pg (25-35) Mean Corpuscular Hemoglobin Concent 33 g/dL (31-37) Red Cell Distribution Width 17.9 % (11.5-14.5) Platelet Count 514 x10^3/uL (140-400) Neutrophils (%) (Auto) 84 % (31-73) Lymphocytes (%) (Auto) 9 % (24-48) Monocytes (%) (Auto) 6 % (0-9) Eosinophils (%) (Auto) 0 % (0-3) Basophils (%) (Auto) 1 % (0-3) Neutrophils # (Auto) 9.6 x10^3uL (1.8-7.7) Lymphocytes # (Auto) 1.1 x10^3/uL (1.0-4.8) Monocytes # (Auto) 0.6 x10^3/uL (0.0-1.1) Eosinophils # (Auto) 0.0 x10^3/uL (0.0-0.7) Basophils # (Auto) 0.1 x10^3/uL (0.0-0.2) Sodium Level 130 mmol/L (136-145) 141 mmol/L (136-145) 138 mmol/L (136-145) Potassium Level 4.0 mmol/L (3.5-5.1) 3.8 mmol/L (3.5-5.1) 3.3 mmol/L (3.5-5.1) Chloride Level 90 mmol/L (98-107) 103 mmol/L (98-107) 97 mmol/L (98-107) Carbon Dioxide Level 21 mmol/L (21-32) 31 mmol/L (21-32) 21 mmol/L (21-32) Anion Gap 19 (6-14) 7 (6-14) 20 (6-14) Blood Urea Nitrogen 144 mg/dL (7-20) 145 mg/dL (7-20) 138 mg/dL (7-20) Creatinine 2.5 mg/dL (0.6-1.0) 1.8 mg/dL (0.6-1.0) 2.1 mg/dL (0.6-1.0) Estimated GFR (Cockcroft-Gault) 20.6 36.5 30.5 BUN/Creatinine Ratio 58 (6-20) Glucose Level 109 mg/dL (70-99) 139 mg/dL (70-99) 112 mg/dL (70-99) Calcium Level 10.2 mg/dL (8.5-10.1) 8.2 mg/dL (8.5-10.1) 9.0 mg/dL (8.5-10.1) Total Bilirubin 0.8 mg/dL (0.2-1.0) Aspartate Amino Transf (AST/SGOT) 20 U/L (15-37) Alanine Aminotransferase (ALT/SGPT) 11 U/L (14-59) Alkaline Phosphatase 103 U/L (46-116) Total Protein 9.6 g/dL (6.4-8.2) Albumin 2.8 g/dL (3.4-5.0) Albumin/Globulin Ratio 0.4 (1.0-1.7) Lipase 245 U/L (73-393) Urine Collection Type Unknown Urine Color Yellow Urine Clarity Cloudy Urine pH 5.5 Urine Specific Inlet 1.015 Urine Protein Negative mg/dL (NEG-TRACE) Urine Glucose (UA) Negative mg/dL (NEG) Urine Ketones (Stick) Negative mg/dL (NEG) Urine Blood Small (NEG) Urine Nitrite Negative (NEG) Urine Bilirubin Negative (NEG) Urine Urobilinogen Dipstick 1.0 mg/dL (0.2 mg/dL) Urine Leukocyte Esterase Moderate (NEG) Urine RBC 0 /HPF (0-2) Urine WBC 5-10 /HPF (0-4) Urine Squamous Epithelial Cells Mod /LPF Urine Transitional Epithelial Cells Few /LPF Urine Bacteria Many /HPF (0-FEW) Urine Hyaline Casts Moderate /HPF Urine Random Sodium 24 mmol/L (Not Estab.) Test 06/06/17 05:25 White Blood Count 11.6 x10^3/uL (4.0-11.0) Red Blood Count 4.25 x10^6/uL (3.50-5.40) Hemoglobin 10.6 g/dL (12.0-15.5) Hematocrit 33.6 % (36.0-47.0) Mean Corpuscular Volume 79 fL (79-100) Mean Corpuscular Hemoglobin 25 pg (25-35) Mean Corpuscular Hemoglobin Concent 32 g/dL (31-37) Red Cell Distribution Width 18.2 % (11.5-14.5) Platelet Count 431 x10^3/uL (140-400) Neutrophils (%) (Auto) 84 % (31-73) Lymphocytes (%) (Auto) 10 % (24-48) Monocytes (%) (Auto) 5 % (0-9) Eosinophils (%) (Auto) 0 % (0-3) Basophils (%) (Auto) 0 % (0-3) Neutrophils # (Auto) 9.8 x10^3uL (1.8-7.7) Lymphocytes # (Auto) 1.2 x10^3/uL (1.0-4.8) Monocytes # (Auto) 0.5 x10^3/uL (0.0-1.1) Eosinophils # (Auto) 0.1 x10^3/uL (0.0-0.7) Basophils # (Auto) 0.0 x10^3/uL (0.0-0.2) Reticulocyte Count (auto) 1.8 % (0.5-2.5) Sodium Level 141 mmol/L (136-145) Potassium Level 2.8 mmol/L (3.5-5.1) Chloride Level 100 mmol/L (98-107) Carbon Dioxide Level 21 mmol/L (21-32) Anion Gap 20 (6-14) Blood Urea Nitrogen 118 mg/dL (7-20) Creatinine 1.7 mg/dL (0.6-1.0) Estimated GFR (Cockcroft-Gault) 39.0 Glucose Level 79 mg/dL (70-99) Calcium Level 10.2 mg/dL (8.5-10.1) Phosphorus Level 3.9 mg/dL (2.6-4.7) Magnesium Level 2.0 mg/dL (1.8-2.4) Iron Level 30 ug/dL (50-170) Total Iron Binding Capacity 194 ug/dL (250-450) Iron Saturation 15 % (15-34) Ferritin 739 ng/mL (8-252) Albumin 2.5 g/dL (3.4-5.0) Laboratory Tests Test 06/05/17 16:00 06/06/17 05:25 Urine Collection Type Unknown Urine Color Yellow Urine Clarity Cloudy Urine pH 5.5 Urine Specific Inlet 1.015 Urine Protein Negative mg/dL (NEG-TRACE) Urine Glucose (UA) Negative mg/dL (NEG) Urine Ketones (Stick) Negative mg/dL (NEG) Urine Blood Small (NEG) Urine Nitrite Negative (NEG) Urine Bilirubin Negative (NEG) Urine Urobilinogen Dipstick 1.0 mg/dL (0.2 mg/dL) Urine Leukocyte Esterase Moderate (NEG) Urine RBC 0 /HPF (0-2) Urine WBC 5-10 /HPF (0-4) Urine Squamous Epithelial Cells Mod /LPF Urine Transitional Epithelial Cells Few /LPF Urine Bacteria Many /HPF (0-FEW) Urine Hyaline Casts Moderate /HPF Urine Random Sodium 24 mmol/L (Not Estab.) White Blood Count 11.6 x10^3/uL (4.0-11.0) Red Blood Count 4.25 x10^6/uL (3.50-5.40) Hemoglobin 10.6 g/dL (12.0-15.5) Hematocrit 33.6 % (36.0-47.0) Mean Corpuscular Volume 79 fL (79-100) Mean Corpuscular Hemoglobin 25 pg (25-35) Mean Corpuscular Hemoglobin Concent 32 g/dL (31-37) Red Cell Distribution Width 18.2 % (11.5-14.5) Platelet Count 431 x10^3/uL (140-400) Neutrophils (%) (Auto) 84 % (31-73) Lymphocytes (%) (Auto) 10 % (24-48) Monocytes (%) (Auto) 5 % (0-9) Eosinophils (%) (Auto) 0 % (0-3) Basophils (%) (Auto) 0 % (0-3) Neutrophils # (Auto) 9.8 x10^3uL (1.8-7.7) Lymphocytes # (Auto) 1.2 x10^3/uL (1.0-4.8) Monocytes # (Auto) 0.5 x10^3/uL (0.0-1.1) Eosinophils # (Auto) 0.1 x10^3/uL (0.0-0.7) Basophils # (Auto) 0.0 x10^3/uL (0.0-0.2) Reticulocyte Count (auto) 1.8 % (0.5-2.5) Sodium Level 141 mmol/L (136-145) Potassium Level 2.8 mmol/L (3.5-5.1) Chloride Level 100 mmol/L (98-107) Carbon Dioxide Level 21 mmol/L (21-32) Anion Gap 20 (6-14) Blood Urea Nitrogen 118 mg/dL (7-20) Creatinine 1.7 mg/dL (0.6-1.0) Estimated GFR (Cockcroft-Gault) 39.0 Glucose Level 79 mg/dL (70-99) Calcium Level 10.2 mg/dL (8.5-10.1) Phosphorus Level 3.9 mg/dL (2.6-4.7) Magnesium Level 2.0 mg/dL (1.8-2.4) Iron Level 30 ug/dL (50-170) Total Iron Binding Capacity 194 ug/dL (250-450) Iron Saturation 15 % (15-34) Ferritin 739 ng/mL (8-252) Albumin 2.5 g/dL (3.4-5.0) Microbiology 06/05/17 Urine Culture - Preliminary, Resulted 06/05/17 Urine Culture Result 1 (ROSANNA) - Preliminary, Resulted Medications Current Medications Ondansetron HCl (Zofran) 4 mg 1X ONCE IV Last administered on 06/04/17 18:59 ; Start 06/04/17 at 18:30; Stop 06/04/17 at 18:31; Status DC Sodium Chloride 1,000 ml @ 1,000 mls/hr 1X ONCE IV Last administered on 18:58; Start 06/04/17 at 18:30; Stop 06/04/17 at 19:29; Status DC Hydromorphone HCl (Dilaudid) 0.5 mg 1X ONCE IV Last administered on 06/04/17 19:00; Start 06/04/17 at 18:30; Stop 06/04/17 at 18:31; Status DC Ondansetron HCl (Zofran) 4 mg PRN Q8HRS PRN IV NAUSEA/VOMITING Last administered on 06/05/17 15:50; Start 06/04/17 at 19:15; Stop 06/05/17 at 19:14 ; Status DC Fentanyl Citrate (Fentanyl 2ml Vial) 50 mcg PRN Q2HR PRN IV PAIN Last administered on 06/05/17 15:51; Start 06/04/17 at 19:15; Stop 06/05/17 at 19:14 ; Status DC Sodium Chloride 1,000 ml @ 150 mls/hr Q6H40M IV Last administered on 14:55; Start 06/04/17 at 19:05; Stop 06/05/17 at 19:04; Status DC Acetaminophen (Tylenol) 650 mg PRN Q4HRS PRN PO FEVER Last administered on 06/05 13:02; Start 06/04/17 at 19:15; Stop 06/05/17 at 19:14; Status DC Magnesium Sulfate/ Dextrose 50 ml @ 25 mls/hr PRN DAILY PRN IV for Mag < 1.7 on am labs; Start 06/05/17 at 09:30 Lorazepam (Ativan) 0.5 mg PRN Q8HRS PRN PO ANXIETY / AGITATION Last administered on 06/05/17 13:02; Start 06/05/17 at 10:45 Sertraline HCl (Zoloft) 25 mg DAILY PO Last administered on 06/06/17 09:27; Start 06/05/17 at 11:30 Acetaminophen/ Hydrocodone Bitart (Lortab 7.5/325) 1 tab PRN Q4HRS PRN PO PAIN ; Start 06/05/17 at 19:30 Acetaminophen/ Hydrocodone Bitart (Lortab 7.5/325) 2 tab PRN Q4HRS PRN PO PAIN Last administered on 06/06/17 09:28; Start 06/05/17 at 19:30 Ondansetron HCl (Zofran) 4 mg PRN Q4HRS PRN IV NAUSEA/VOMITING Last administered on 06/06/17 09:27; Start 06/06/17 at 03:15; Stop 06/07/17 at 03:14 Potassium Chloride (Klor-Con) 40 meq 1X ONCE PO Last administered on 09:28; Start 06/06/17 at 09:15; Stop 06/06/17 at 09:16; Status DC Potassium Chloride (Klor-Con) 40 meq 1X ONCE PO Last administered on 12:51; Start 06/06/17 at 12:00; Stop 06/06/17 at 12:01; Status DC Active Scripts Active Reported [No Home Meds] Vitals/I & O Vital Sign - Last 24 Hours 06/05/17 06/05/17 06/05/17 06/05/17 15:00 19:00 20:00 20:00 Temp 98.0 98.5 98.0 98.5 Pulse 72 99 Resp 20 19 18 B/P (MAP) 119/66 (83) 115/71 (86) Pulse Ox 97 99 O2 Delivery Room Air Room Air Room Air Room Air 06/05/17 06/06/17 06/06/17 06/06/17 22:47 04:33 07:00 10:53 Temp 98.1 97.8 97.8 98.1 97.8 97.8 Pulse 100 102 104 Resp 20 18 20 20 B/P (MAP) 109/66 (80) 117/69 (85) 120/72 (88) Pulse Ox 99 99 99 O2 Delivery Room Air Room Air Room Air Room Air Intake and Output 06/05/17 06/05/17 06/06/17 15:00 23:00 07:00 Intake Total 600 ml 240 ml 200 ml Output Total 300 ml 950 ml Balance 600 ml -60 ml -750 ml GEORGE GOODWIN MD Jun 06, 2017 13:19
[2017-06-06] MEDS: IV NORMAL SALINE 1000ML BAG 1,000 ML IV PRN (14:54)
[2017-06-06 15:00] VITALS: BP 118/70
[2017-06-06 19:00] VITALS: BP 122/64
[2017-06-06 23:00] VITALS: BP 116/64
[2017-06-07 03:00] VITALS: BP 110/71
[2017-06-07 05:23] LABS: ALBUMIN 2.5 g/dL (3.4-5.0); CALCIUM 9.1 mg/dL (8.5-10.1); CREATININE 1.5 mg/dL (0.6-1.0); MAGNESIUM 1.9 mg/dL (1.8-2.4); PHOSPHORUS 3.6 mg/dL (2.6-4.7); POTASSIUM 4.1 mmol/L (3.5-5.1)
[2017-06-07 06:14] LABS: ALBUMIN 2.5 g/dL (3.4-5.0); DIRECT BILIRUBIN 0.2 mg/dL (0.0-0.2); TOTAL BILIRUBIN 0.4 mg/dL (0.2-1.0); TOTAL PROTEIN 7.9 g/dL (6.4-8.2)
[2017-06-07] MEDS: HYDROcodone/APAP 7.5/325MG 1 TAB TABLET PO PRN ×3 (06:22→20:56)
[2017-06-07 07:00] VITALS: BP 133/80
[2017-06-07 09:09] LABS: FOLATE 3.61 ng/ml (3.2-20.0)
[2017-06-07] MEDS: POTASSIUM CHLORIDE 20 MEQ TABLET.ER. PO SCH (09:11)
[2017-06-07] MEDS: SERTRALINE 25 MG TABLET. PO SCH (09:11)
[2017-06-07] MEDS: LIDOCAINE (700MG/PATCH) PATCH. TD SCH (09:12)
[2017-06-07 10:55] VITALS: BP 132/76
--- NOTE | 2017-06-07 11:35 | PDOC ---
Renal-Progress Notes Subjective Notes Notes NO COMPLAINTS VOICED History of Present Illness Hx of present illness IMPROVED Vitals Vitals Vital Signs Date Time Temp Pulse Resp B/P (MAP) Pulse Ox O2 Delivery O2 Flow Rate FiO2 06/07/17 10:55 97.9 94 20 132/76 (94) 100 Room Air 97.9 Weight Weight [ ] I.O. Intake and Output Intake and Output 06/07/17 07:00 Intake Total 3180 ml Output Total 300 ml Balance 2880 ml Intake Oral 1380 ml IV Total 1800 ml Output Urine Total 300 ml Labs Labs Laboratory Tests Test 06/07/17 04:08 Sodium Level 143 mmol/L (136-145) Potassium Level 4.1 mmol/L (3.5-5.1) Chloride Level 105 mmol/L (98-107) Carbon Dioxide Level 20 mmol/L (21-32) Anion Gap 18 (6-14) Blood Urea Nitrogen 100 mg/dL (7-20) Creatinine 1.5 mg/dL (0.6-1.0) Estimated GFR (Cockcroft-Gault) 45.0 Glucose Level 72 mg/dL (70-99) Calcium Level 9.1 mg/dL (8.5-10.1) Phosphorus Level 3.6 mg/dL (2.6-4.7) Magnesium Level 1.9 mg/dL (1.8-2.4) Total Bilirubin 0.4 mg/dL (0.2-1.0) Direct Bilirubin 0.2 mg/dL (0.0-0.2) Aspartate Amino Transf (AST/SGOT) 16 U/L (15-37) Alanine Aminotransferase (ALT/SGPT) 17 U/L (14-59) Alkaline Phosphatase 92 U/L (46-116) Total Protein 7.9 g/dL (6.4-8.2) Albumin 2.5 g/dL (3.4-5.0) Micro Micro Microbiology 06/05/17 Urine Culture - Preliminary, Resulted 06/05/17 Urine Culture Result 1 (ROSANNA) - Preliminary, Resulted Review of Systems Constitutional: yes: alert, oriented Ears/Nose/Throat: Yes: no symptom reported Pulmonary: Yes no symptom reported Gastrointestional: Yes: no symptom reported Musculoskeletal: Yes: no symptom reported Skin: Yes no symptom reported Psychiatric/Neurological: Yes: no symptom reported Physical Exam General Appearance: no apparent distress Skin: warm Respiratory: decreased breath sounds Heart: S1S2 Abdomen: soft, bowel sounds present Extremities: pulses present Neurology: oriented Assessment Assessment IMP MORBID OBESITY DEHYDRATION PHILIP-CR IMPROVED FROM 2.5 TO 1.5 PLAN CONT WITH IVF'S ENC PO FLUID INTAKE MICHAEL HAMMONDS MD Jun 07, 2017 11:35
--- NOTE | 2017-06-07 14:40 | PDOC ---
PROGRESS NOTES Chief Complaint Chief Complaint acute uremic renal failure, azotemia ASSESSMENT AND PLAN; 1. PHILIP/ on poss CKD: improving, with uremia better, cont IV fluid 2. CHF: by hx; echo ND 3. Hyponatremia: resolved 4. Hypokalemia, hypomagnesemia: recurrent. replete 5. Knee pain: probable OA. appreciate Dr Gee's input. treat medically. 6. R ankle wound: d/w wound care team: deep, on bone, suspicious for osteo. Xrays positive for osteo. consult ID, ortho 7. Decub ulcers: wound care following 8. FTT: OT/PT eval; case management for placement 9. Depression: new dx. start ativan, zoloft 10. morbid obesity, BMI 65, w/ poor habitus and deconditioning and very limited mobility History of Present Illness History of Present Illness confrontational, argumentative. c/o pain whenever she has to move. appetite is poor Vitals Vitals Vital Signs Date Time Temp Pulse Resp B/P (MAP) Pulse Ox O2 Delivery O2 Flow Rate FiO2 06/07/17 10:55 97.9 94 20 132/76 (94) 100 Room Air 97.9 Physical Exam General: Alert, Cooperative, No acute distress Heart: Regular rate Lungs: Clear Abdomen: Normal bowel sounds, Other (massive obesity) Extremities: No edema, Other (R lat ankle wound with fluctuance) Skin: No rashes, Other (superficial desquamation are on R lat pannus, pressure ulcers) Labs LABS Laboratory Tests Test 06/07/17 04:08 Sodium Level 143 mmol/L (136-145) Potassium Level 4.1 mmol/L (3.5-5.1) Chloride Level 105 mmol/L (98-107) Carbon Dioxide Level 20 mmol/L (21-32) Anion Gap 18 (6-14) Blood Urea Nitrogen 100 mg/dL (7-20) Creatinine 1.5 mg/dL (0.6-1.0) Estimated GFR (Cockcroft-Gault) 45.0 Glucose Level 72 mg/dL (70-99) Calcium Level 9.1 mg/dL (8.5-10.1) Phosphorus Level 3.6 mg/dL (2.6-4.7) Magnesium Level 1.9 mg/dL (1.8-2.4) Total Bilirubin 0.4 mg/dL (0.2-1.0) Direct Bilirubin 0.2 mg/dL (0.0-0.2) Aspartate Amino Transf (AST/SGOT) 16 U/L (15-37) Alanine Aminotransferase (ALT/SGPT) 17 U/L (14-59) Alkaline Phosphatase 92 U/L (46-116) Total Protein 7.9 g/dL (6.4-8.2) Albumin 2.5 g/dL (3.4-5.0) COLLINS MENDOZA MD Jun 07, 2017 14:39
[2017-06-07 14:56] VITALS: BP 134/82
--- NOTE | 2017-06-07 17:26 | RAD ---
Right ankle, 2 views, 06/07/2017: History: Cellulitis, possible osteomyelitis There is extensive patchy bony demineralization. There is bony disorganization with partial loss of definition of the margins of the intertarsal joints at the mid tarsal and MTP joint levels. There are foci of cortical loss along both sides of the ankle joint. There is mild periosteal reaction along the distal tibial and fibular shafts. There is diffuse soft tissue swelling. IMPRESSION: Patchy bony lucencies and disorganization as described above suggesting neuropathic arthropathy and likely osteomyelitis.
[2017-06-07 19:00] VITALS: BP 123/71
[2017-06-07] MEDS: IV NORMAL SALINE 1000ML BAG 1,000 ML IV PRN (20:21)
[2017-06-07] MEDS ORDERED: diphenhydrAMINE HCL 25 MG CAPSULE PO PRN (21:15)
[2017-06-07] MEDS: IV NORMAL SALINE 1000ML BAG 1,000 ML IV SCH (21:30)
[2017-06-07 22:44] VITALS: BP 133/77
--- NOTE | 2017-06-07 23:10 | CONS ---
DATE OF CONSULTATION: 06/07/2017 ATTENDING PHYSICIAN: Dr. Villarreal. The patient was seen at the request of Dr. Lieberman for rehab evaluation. HISTORY OF PRESENT ILLNESS: This is a 47-year-old right-handed female with catastrophic obesity essentially bedridden for the last 5 years, admitted with bilateral knee pain. She states that she was diagnosed as having rheumatoid arthritis. The patient was admitted through the Emergency Room with diagnosis of acute kidney injury. The patient apparently is not eating that much as food does not taste good. She denies any nausea, vomiting or abdominal pain. She had history of congestive heart failure, used to take Lasix. The patient lives with her son and she had hospital bed longtime, not sure if she is working properly or not. The patient was found with multiple decubitus ulcers over her ____, back and back of the shoulders. The patient usually uses analgesic balm to her knees. PHYSICAL EXAMINATION: Today revealed a middle-aged female. She is alert, oriented to place and person, follows commands appropriately. She moves of both upper extremities voluntarily where she had significant weakness. Muscle strength is being 3 x 5-3+ x 5 grade in the upper extremities, she had trace movement of her toes. She does not move her hips or knees. She keeps her lower extremities in a portion of external rotation and flexion at the hips and flexion at her knees. She seemed to have equal perception of touch and pinprick sensation bilaterally. Deep tendon reflexes are decreased over all. She does not let us touch her lower extremities as she complains of so much pain. She has superficial skin irritation over both knees. 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 RECOMMENDATIONS: She probably needs to go to a longterm as she is having difficulty to be taken care at home. I am not sure injecting her knees is going to be that much help as she is so weak in her lower extremities, almost like a paraparetic and she does not get up much in the last 5 years better to give her some narcotic pain medication to help ease her pain and Dr. Villarreal appreciate asking me to participate in the care of this interesting patient. I will be glad to follow her with you as needed for her rehabilitation. MIKALA REILLY MD DR: MIREILLE/maricarmen JOB#: [id number] / [id number]
[2017-06-08] MEDS: HYDROcodone/APAP 7.5/325MG 1 TAB TABLET PO PRN ×3 (04:16→22:31)
[2017-06-08] MEDS: IV NORMAL SALINE 1000ML BAG 1,000 ML IV SCH (05:37)
[2017-06-08 06:15] LABS: TOTAL SERUM CREATININE 1.52 mg/dL (0.57-1.00); TOTAL URINE CREATININE 43.6 mg/dL (Not Estab.)
[2017-06-08 07:00] VITALS: BP 122/78
[2017-06-08 07:17] LABS: ALBUMIN 2.3 g/dL (3.4-5.0); CREATININE 1.1 mg/dL (0.6-1.0); GFR 64.4; PHOSPHORUS 2.9 mg/dL (2.6-4.7)
[2017-06-08 07:30] LABS: POTASSIUM 2.9 mmol/L (3.5-5.1)
[2017-06-08] MEDS: POTASSIUM CHLORIDE 20 MEQ TABLET.ER. PO SCH ×2 (08:00→09:31)
[2017-06-08] MEDS ORDERED: POTASSIUM CITRATE 10 MEQ TABLET.ER PO SCH (08:00)
[2017-06-08] MEDS: SERTRALINE 25 MG TABLET. PO SCH (09:30)
[2017-06-08] MEDS: LIDOCAINE (700MG/PATCH) PATCH. TD SCH (09:32)
--- NOTE | 2017-06-08 09:58 | PDOC ---
PROGRESS NOTES Subjective Subjective No new complaints. Objective Objective Vital Signs Date Time Temp Pulse Resp B/P (MAP) Pulse Ox O2 Delivery O2 Flow Rate FiO2 06/08/17 09:30 20 92 Room Air 06/08/17 07:00 97.9 102 122/78 (93) 97.9 Intake and Output 06/08/17 06:59 Intake Total 780 ml Output Total 1300 ml Balance -520 ml Intake Oral 780 ml Output Urine Total 1300 ml Physical Exam Physical Exam She is supine in bed and does not seem to be in any acute distress and she had evidence of DJD of ankle. Assessment Assessment Problems Medical Problems: (1) Acute renal failure Status: Acute (2) Chronic renal insufficiency Status: Acute (3) Dehydration Status: Acute (4) Lower extremity pain Status: Acute Plan Plan of Care To SNF when medically stable. Comment Review of Relevant I have reviewed the following items negra (where applicable) has been applied. Labs Laboratory Tests Test 06/07/17 04:08 06/07/17 12:45 06/08/17 06:30 Sodium Level 143 mmol/L (136-145) 146 mmol/L (136-145) Potassium Level 4.1 mmol/L (3.5-5.1) 2.9 mmol/L (3.5-5.1) Chloride Level 105 mmol/L (98-107) 108 mmol/L (98-107) Carbon Dioxide Level 20 mmol/L (21-32) 21 mmol/L (21-32) Anion Gap 18 (6-14) 17 (6-14) Blood Urea Nitrogen 100 mg/dL (7-20) 68 mg/dL (7-20) Creatinine 1.5 mg/dL (0.6-1.0) 1.52 mg/dL (0.57-1.00) 1.1 mg/dL (0.6-1.0) Estimated GFR (Cockcroft-Gault) 45.0 64.4 Glucose Level 72 mg/dL (70-99) 90 mg/dL (70-99) Calcium Level 9.1 mg/dL (8.5-10.1) 10.0 mg/dL (8.5-10.1) Phosphorus Level 3.6 mg/dL (2.6-4.7) 2.9 mg/dL (2.6-4.7) Magnesium Level 1.9 mg/dL (1.8-2.4) 1.6 mg/dL (1.8-2.4) Total Bilirubin 0.4 mg/dL (0.2-1.0) Direct Bilirubin 0.2 mg/dL (0.0-0.2) Aspartate Amino Transf (AST/SGOT) 16 U/L (15-37) Alanine Aminotransferase (ALT/SGPT) 17 U/L (14-59) Alkaline Phosphatase 92 U/L (46-116) Total Protein 7.9 g/dL (6.4-8.2) Albumin 2.5 g/dL (3.4-5.0) 2.3 g/dL (3.4-5.0) Urine Protein 14.2 mg/dL (Not Estab.) Urine Creatinine 24 Hour 763 mg/24 hr (800-1800) Creatinine Clearance 24 Hour 35 mL/min (88-128) Urine Protein 24 Hr Calculated Comment mg/24 hr (30-150) Estimated GFR (Non- 41 (>59) EGFR 47 (>59) Laboratory Tests Test 06/07/17 12:45 06/08/17 06:30 Urine Protein 14.2 mg/dL (Not Estab.) Urine Creatinine 24 Hour 763 mg/24 hr (800-1800) Creatinine Clearance 24 Hour 35 mL/min (88-128) Urine Protein 24 Hr Calculated Comment mg/24 hr (30-150) Creatinine 1.52 mg/dL (0.57-1.00) 1.1 mg/dL (0.6-1.0) Estimated GFR (Non- 41 (>59) EGFR 47 (>59) Sodium Level 146 mmol/L (136-145) Potassium Level 2.9 mmol/L (3.5-5.1) Chloride Level 108 mmol/L (98-107) Carbon Dioxide Level 21 mmol/L (21-32) Anion Gap 17 (6-14) Blood Urea Nitrogen 68 mg/dL (7-20) Estimated GFR (Cockcroft-Gault) 64.4 Glucose Level 90 mg/dL (70-99) Calcium Level 10.0 mg/dL (8.5-10.1) Phosphorus Level 2.9 mg/dL (2.6-4.7) Magnesium Level 1.6 mg/dL (1.8-2.4) Albumin 2.3 g/dL (3.4-5.0) Microbiology 06/05/17 Urine Culture - Final, Complete 06/05/17 Urine Culture Result 1 (ROSANNA) - Final, Complete Medications Current Medications Ondansetron HCl (Zofran) 4 mg 1X ONCE IV Last administered on 06/04/17 18:59 ; Start 06/04/17 at 18:30; Stop 06/04/17 at 18:31; Status DC Sodium Chloride 1,000 ml @ 1,000 mls/hr 1X ONCE IV Last administered on 18:58; Start 06/04/17 at 18:30; Stop 06/04/17 at 19:29; Status DC Hydromorphone HCl (Dilaudid) 0.5 mg 1X ONCE IV Last administered on 06/04/17 19:00; Start 06/04/17 at 18:30; Stop 06/04/17 at 18:31; Status DC Ondansetron HCl (Zofran) 4 mg PRN Q8HRS PRN IV NAUSEA/VOMITING Last administered on 06/05/17 15:50; Start 06/04/17 at 19:15; Stop 06/05/17 at 19:14 ; Status DC Fentanyl Citrate (Fentanyl 2ml Vial) 50 mcg PRN Q2HR PRN IV PAIN Last administered on 06/05/17 15:51; Start 06/04/17 at 19:15; Stop 06/05/17 at 19:14 ; Status DC Sodium Chloride 1,000 ml @ 150 mls/hr Q6H40M IV Last administered on 14:55; Start 06/04/17 at 19:05; Stop 06/05/17 at 19:04; Status DC Acetaminophen (Tylenol) 650 mg PRN Q4HRS PRN PO FEVER Last administered on 06/05 13:02; Start 06/04/17 at 19:15; Stop 06/05/17 at 19:14; Status DC Magnesium Sulfate/ Dextrose 50 ml @ 25 mls/hr PRN DAILY PRN IV for Mag < 1.7 on am labs; Start 06/05/17 at 09:30 Lorazepam (Ativan) 0.5 mg PRN Q8HRS PRN PO ANXIETY / AGITATION Last administered on 06/05/17 13:02; Start 06/05/17 at 10:45 Sertraline HCl (Zoloft) 25 mg DAILY PO Last administered on 06/08/17 09:30; Start 06/05/17 at 11:30 Acetaminophen/ Hydrocodone Bitart (Lortab 7.5/325) 1 tab PRN Q4HRS PRN PO PAIN ; Start 06/05/17 at 19:30 Acetaminophen/ Hydrocodone Bitart (Lortab 7.5/325) 2 tab PRN Q4HRS PRN PO PAIN Last administered on 06/08/17 09:30; Start 06/05/17 at 19:30 Ondansetron HCl (Zofran) 4 mg PRN Q4HRS PRN IV NAUSEA/VOMITING Last administered on 06/06/17 09:27; Start 06/06/17 at 03:15; Stop 06/07/17 at 03:14 ; Status DC Potassium Chloride (Klor-Con) 40 meq 1X ONCE PO Last administered on 09:28; Start 06/06/17 at 09:15; Stop 06/06/17 at 09:16; Status DC Potassium Chloride (Klor-Con) 40 meq 1X ONCE PO Last administered on 12:51; Start 06/06/17 at 12:00; Stop 06/06/17 at 12:01; Status DC Sodium Chloride 1,000 ml @ 150 mls/hr Q6H40M IV ; Start 06/06/17 at 13:15; Stop 06/06/17 at 13:18; Status DC Potassium Chloride (Klor-Con) 20 meq DAILYWBKFT PO Last administered on 09:11; Start 06/07/17 at 08:00; Stop 06/08/17 at 09:47; Status DC Lidocaine (Lidoderm) 1 patch DAILY TD Last administered on 06/08/17 09:32; Start 06/07/17 at 09:00 Sodium Chloride 1,000 ml @ 150 mls/hr Q6H40M PRN IV . Last administered on 06/07 20:21; Start 06/06/17 at 13:30; Stop 06/07/17 at 21:05; Status DC Sodium Chloride 1,000 ml @ 100 mls/hr Q10H IV Last administered on 06/08/17t 05:37; Start 06/07/17 at 21:30 Diphenhydramine HCl (Benadryl) 25 mg PRN Q6HRS PRN PO ITCHING; Start 06/07/17 at 21:15 Potassium Citrate (Urocit-K) 40 meq BIDACBL PO ; Start 06/08/17 at 08:00; Stop 06/08/17 at 09:47; Status DC Potassium Chloride (KCl Oral Soln) 40 meq BIDACBL PEG ; Start 06/08/17 at 10:00 Active Scripts Active Reported [No Home Meds] Vitals/I & O Vital Sign - Last 24 Hours 06/07/17 06/07/17 06/07/17 06/07/17 10:55 14:56 16:37 19:00 Temp 97.9 97.9 97.5 97.9 97.9 97.5 Pulse 94 101 88 Resp 20 20 18 B/P (MAP) 132/76 (94) 134/82 (99) 123/71 (88) Pulse Ox 100 95 95 97 O2 Delivery Room Air Room Air Room Air Room Air 06/07/17 06/07/17 06/07/17 06/08/17 20:54 20:56 22:44 04:16 Temp 98.9 98.9 Pulse 90 Resp 20 20 18 20 B/P (MAP) 133/77 (95) Pulse Ox 95 O2 Delivery Room Air Room Air Room Air Room Air 06/08/17 06/08/17 07:00 09:30 Temp 97.9 97.9 Pulse 102 Resp 20 20 B/P (MAP) 122/78 (93) Pulse Ox 97 92 O2 Delivery Room Air Room Air Intake and Output 06/07/17 06/07/17 06/08/17 14:59 22:59 06:59 Intake Total 240 ml 300 ml 240 ml Output Total 300 ml 1000 ml Balance 240 ml 0 ml -760 ml MIKALA REILLY MD Jun 08, 2017 09:58
[2017-06-08 11:00] VITALS: BP 131/86
[2017-06-08] MEDS: POTASSIUM CHLORIDE 20 MEQ/15 ML ORAL LIQUID. PEG SCH ×2 (11:10→18:24)
--- NOTE | 2017-06-08 12:11 | PDOC ---
Renal-Progress Notes Subjective Notes Notes NONE History of Present Illness Hx of present illness NO CHANGE Vitals Vitals Vital Signs Date Time Temp Pulse Resp B/P (MAP) Pulse Ox O2 Delivery O2 Flow Rate FiO2 06/08/17 11:00 97.9 97 20 131/86 (101) 98 Room Air 97.9 Weight Weight [ ] I.O. Intake and Output Intake and Output 06/08/17 07:00 Intake Total 780 ml Output Total 1300 ml Balance -520 ml Intake Oral 780 ml Output Urine Total 1300 ml Labs Labs Laboratory Tests Test 06/07/17 12:45 06/08/17 06:30 Urine Protein 14.2 mg/dL (Not Estab.) Urine Creatinine 24 Hour 763 mg/24 hr (800-1800) Creatinine Clearance 24 Hour 35 mL/min (88-128) Urine Protein 24 Hr Calculated Comment mg/24 hr (30-150) Creatinine 1.52 mg/dL (0.57-1.00) 1.1 mg/dL (0.6-1.0) Estimated GFR (Non- 41 (>59) EGFR 47 (>59) Sodium Level 146 mmol/L (136-145) Potassium Level 2.9 mmol/L (3.5-5.1) Chloride Level 108 mmol/L (98-107) Carbon Dioxide Level 21 mmol/L (21-32) Anion Gap 17 (6-14) Blood Urea Nitrogen 68 mg/dL (7-20) Estimated GFR (Cockcroft-Gault) 64.4 Glucose Level 90 mg/dL (70-99) Calcium Level 10.0 mg/dL (8.5-10.1) Phosphorus Level 2.9 mg/dL (2.6-4.7) Magnesium Level 1.6 mg/dL (1.8-2.4) Albumin 2.3 g/dL (3.4-5.0) Micro Micro Microbiology 06/05/17 Urine Culture - Final, Complete 06/05/17 Urine Culture Result 1 (ROSANNA) - Final, Complete Review of Systems Constitutional: yes: alert, oriented Ears/Nose/Throat: Yes: no symptom reported Pulmonary: Yes no symptom reported Gastrointestional: Yes: no symptom reported Musculoskeletal: Yes: no symptom reported Skin: Yes no symptom reported Psychiatric/Neurological: Yes: no symptom reported Physical Exam General Appearance: no apparent distress Skin: warm Respiratory: decreased breath sounds Heart: S1S2 Abdomen: soft, bowel sounds present Extremities: pulses present Neurology: oriented Assessment Assessment IMP MORBID OBESITY DEHYDRATION PHILIP-CR IMPROVED FROM 2.5 TO 1.1 LOW K LOW MAG PLAN REPLACE K AND MAG CONT WITH IVF'S ENC PO FLUID INTAKE MICHAEL HAMMONDS MD Jun 08, 2017 12:11
[2017-06-08] MEDS ORDERED: MAGNESIUM SULFATE 2GM 50 ML IV ONE (12:15)
[2017-06-08] MEDS ORDERED: MAGNESIUM SULFATE 4GM 100 ML IV ONE (12:30)
--- NOTE | 2017-06-08 12:47 | PDOC ---
Infectious Disease Note Vital Sign Vital Signs Vital Signs Date Time Temp Pulse Resp B/P (MAP) Pulse Ox O2 Delivery O2 Flow Rate FiO2 06/08/17 11:00 97.9 97 20 131/86 (101) 98 Room Air 97.9 Labs Lab Laboratory Tests Test 06/07/17 12:45 06/08/17 06:30 Urine Protein 14.2 mg/dL (Not Estab.) Urine Creatinine 24 Hour 763 mg/24 hr (800-1800) Creatinine Clearance 24 Hour 35 mL/min (88-128) Urine Protein 24 Hr Calculated Comment mg/24 hr (30-150) Creatinine 1.52 mg/dL (0.57-1.00) 1.1 mg/dL (0.6-1.0) Estimated GFR (Non- 41 (>59) EGFR 47 (>59) Sodium Level 146 mmol/L (136-145) Potassium Level 2.9 mmol/L (3.5-5.1) Chloride Level 108 mmol/L (98-107) Carbon Dioxide Level 21 mmol/L (21-32) Anion Gap 17 (6-14) Blood Urea Nitrogen 68 mg/dL (7-20) Estimated GFR (Cockcroft-Gault) 64.4 Glucose Level 90 mg/dL (70-99) Calcium Level 10.0 mg/dL (8.5-10.1) Phosphorus Level 2.9 mg/dL (2.6-4.7) Magnesium Level 1.6 mg/dL (1.8-2.4) Albumin 2.3 g/dL (3.4-5.0) Objective Assessment 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 Await ortho evaluation. Hold antibiotics for now. await cultures. Thank you [id number] Attending Co-Sign The patient was seen and interviewed as well as examined at the bedside. The chart was reviewed. The case was discussed. Agree with the plan of care. EZEKIEL HERMOSILLO APRN Jun 08, 2017 12:47 KELSEY RIZZO MD Jun 08, 2017 15:54
[2017-06-08] MEDS: POTASSIUM CHLORIDE 30 MEQ in IV 1/2 NORMAL SALINE 1,000 ML IV SCH (13:21)
[2017-06-08 14:44] VITALS: BP 140/80
[2017-06-08] MEDS ORDERED: VANCOMYCIN 2 GM in IV NORMAL SALINE 500ML BAG 500 ML IV ONE (16:30)
[2017-06-08] MEDS: PIPERACILLIN/TAZOBACTAM 3.375 GM in IV NORMAL SALINE 50ML 50 ML IV SCH ×2 (18:24→23:48)
[2017-06-08 19:00] VITALS: BP 120/58
[2017-06-08] MEDS: VANCOMYCIN PER PHARMACY MC PRN (19:38)
--- NOTE | 2017-06-08 19:52 | CARD ---
APPROVED REPORT EXAM: Two-dimensional and M-mode echocardiogram with Doppler and color Doppler. Other Information Quality : Fair INDICATION History of CHF RISK FACTORS Obesity 2D DIMENSIONS RVDd2.2 (2.9-3.5cm)Left Atrium(2D)3.1 (1.6-4.0cm) IVSd1.4 (0.7-1.1cm)Aortic Root(2D)3.2 (2.0-3.7cm) LVDd3.7 (3.9-5.9cm)LVOT Diameter2.2 (1.8-2.4cm) PWd1.3 (0.7-1.1cm)LVDs2.9 (2.5-4.0cm) FS (%) 27.5 %SV26.1 ml LVEF(%)50.0 (>50%) Aortic Valve AoV Peak Dinesh.160.2cm/sAoV VTI22.3cm AO Peak GR.10.3mmHgLVOT VTI 16.56cm AO Mean GR.5mmHgAVA (VTI)2.70cm2 Mitral Valve MV E Chduqprg77.1cm/sMV DECEL [id number] MV A Yvldnzyq16.6cm/sE/A Ratio0.9 TDI Lateral E' P. V11.55cm/sMedial E' P. V9.87cm/s E/Lateral E'7.3E/Medial E'8.5 Tricuspid Valve TR P. [id number]/sRAP [id number] TR Peak Gr.65ejShCCAD94dzLy Pulmonary Vein S1 Fhasudtf99.4cm/s LEFT VENTRICLE The left ventricle is normal size. There is mild concentric left ventricular hypertrophy. The left ve ntricular systolic function is normal and the ejection fraction is within normal range. The Ejection Fraction is 50%. There is normal LV segmental wall motion. Transmitral Doppler flow pattern is Grade I-abnormal relaxation pattern. RIGHT VENTRICLE The right ventricle is normal size. The right ventricular systolic function is normal. ATRIA The left atrium size is normal. The right atrium size is normal. The interatrial septum is intact wit h no evidence for an atrial septal defect or patent foramen ovale as noted on 2-D or Doppler imaging. AORTIC VALVE The aortic valve is normal in structure and function. Doppler and Color Flow revealed no significant aortic regurgitation. There is no significant aortic valvular stenosis. MITRAL VALVE The mitral valve is normal in structure There is no evidence of mitral valve prolapse. There is no mi tral valve stenosis. Doppler and Color-flow revealed trace mitral regurgitation. TRICUSPID VALVE The tricuspid valve is normal in structure Doppler and Color Flow revealed trace tricuspid regurgitat ion. The PA pressure was estimated at 22 mmHg. There is no tricuspid valve stenosis. PULMONIC VALVE The pulmonary valve is not well visualized but appears to be functioning normally by Doppler interrog ation. Doppler and Color Flow revealed no pulmonic valvular regurgitation. There is no pulmonic valvu lar stenosis. GREAT VESSELS The aortic root is normal in size. The ascending aorta is normal in size. The IVC is normal in size a nd collapses >50% with inspiration. PERICARDIAL EFFUSION There is no evidence of significant pericardial effusion. Critical Notification Critical Value: No <Conclusion> The left ventricular systolic function is normal and the ejection fraction is within normal range. The Ejection Fraction is 50%. Transmitral Doppler flow pattern is Grade I-abnormal relaxation pattern. There is mild concentric left ventricular hypertrophy. The left atrium size is normal. The right atrium size is normal. The aortic valve is normal in structure and function. Doppler and Color-flow revealed trace mitral regurgitation. Doppler and Color Flow revealed trace tricuspid regurgitation. The PA pressure was estimated at 22 mmHg. The pulmonary valve is not well visualized but appears to be functioning normally by Doppler interrog ation. There is no evidence of significant pericardial effusion.
[2017-06-08 23:00] VITALS: BP_SYST 116; BP_SYST 160; BP_DIAS 95
[2017-06-08] MEDS: ONDANSETRON PF 4 MG/2 ML VIAL. IV PRN (23:08)
[2017-06-09] MEDS ORDERED: ONDANSETRON PF 4 MG/2 ML VIAL. IV ONE (04:00)
[2017-06-09] MEDS: PIPERACILLIN/TAZOBACTAM 3.375 GM in IV NORMAL SALINE 50ML 50 ML IV SCH ×3 (06:04→17:56)
[2017-06-09] MEDS: HYDROcodone/APAP 7.5/325MG 1 TAB TABLET PO PRN ×3 (06:08→22:38)
--- NOTE | 2017-06-09 06:45 | CONS ---
DATE OF CONSULTATION: 06/08/2017 REQUESTING PHYSICIAN: Dr. Villarreal. REASON FOR CONSULTATION: Osteomyelitis of the right ankle. HISTORY OF PRESENT ILLNESS: The patient is a 47-year-old -[place] female, morbidly obese with a BMI of 65, who is chronically bed bound. About a month ago, she was sleeping in her bed with her right foot propped up on a chair. Since that time, she has developed pain of the right ankle/foot. She was not aware of developing a wound as she lies with her leg extroverted. Findings on x-ray of the right ankle suggest neuropathic arthropathy and likely osteomyelitis. ID has been asked to consult. PAST MEDICAL HISTORY: Super morbid obesity with BMI 65, congestive heart failure, sleep apnea, heartburn, incontinence, arthritis, anemia. PAST SURGICAL HISTORY: Hysterectomy, section. SOCIAL HISTORY: The patient lives at home with her son. She is chronically bed bound. FAMILY HISTORY: Noncontributory. ALLERGIES: No known drug allergies. MEDICATIONS: Reviewed on the JAN. REVIEW OF SYSTEMS: The patient is not feeling well. She feels nauseous. Appetite is diminished. Denies constipation, diarrhea or vomiting. Denies cough, shortness of air or wheezing. She has a Mcgill in place for decreased urine output. Renal is following. . Denies rash. Chronic bilateral knee pain. PHYSICAL EXAMINATION: GENERAL: Overweight -[place]ian female, propped up in bed, in no apparent distress. VITAL SIGNS: Afebrile. Stable. HEENT: Pupils equally round. Normal conjunctivae. Oral mucosa is pink and dry. LUNGS: Clear to auscultation. HEART: Normal S1, S2. ABDOMEN: Obese, bowel sounds are present, soft, nontender. GENITOURINARY: She has a Mcgill. EXTREMITIES: No gross edema or cyanosis. She has a 1.8 x 2.5 pressure wound located over the lateral ankle with area of fluctuance and tunneling in the positioning, probe to bone. SKIN: Without rash. Multiple wounds. Refer to wound care notes for further description and pictures. NEUROLOGIC: Alert and oriented. Poor historian. LABORATORY DATA: Today's WBC 11.6, hemoglobin 10.6, platelet count 431,000. Sodium 146, potassium 2.9, creatinine 1.1 from 2.5 on admission, BUN 68, hemoglobin A1c 4.9, albumin 2.3. Urinalysis is unremarkable for infection with negative growth on culture. Anaerobic and aerobic culture pending. X-ray of the right ankle per HPI. Renal ultrasound shows bilateral renal cysts. IMPRESSION: 1. Stage 4 pressure wound with osteomyelitis of the right ankle. 2. Leukocytosis. 3. Super morbid obesity with BMI of 65. Chronically bed bound. 4. Acute kidney injury, improving. PLAN: Check a sed rate. Given the patient's immobility and inability to offload the wound not likely to heal. Await Ortho evaluation. Hold antibiotics for now. Await cultures. Thank you, Dr. Villarreal, for asking us to participate in this patient's care. Should you have further questions or concerns, please call. KELSEY RIZZO MD DR: GAVI/maricarmen JOB#: [id number] / [id number]
--- NOTE | 2017-06-09 06:45 | CONS ---
DATE OF CONSULTATION: 06/08/2017 REASON FOR CONSULTATION: Right ankle wound and osteomyelitis. REQUESTING PHYSICIAN: Dr. Villarreal. HISTORY OF PRESENT ILLNESS: The patient is a 47-year-old woman who states that she has probably had about a 1-month history of a right ankle wound. She is morbidly obese and states that she probably has not walked in about 3-4 years, has been bedbound in the interim and was admitted with pains in both knees. She indicated on admission that she has been diagnosed with arthritis in both knees that have been hurting for a long time and indicates that prior to admission, pain got significantly worse. The knees are not as much of an issue at this point particularly if she is resting comfortably in bed. PAST MEDICAL HISTORY: Significant for congestive heart failure, morbid obesity, and arthritis. MEDICATIONS: List is reviewed. ALLERGIES: She has no known drug allergies. FAMILY HISTORY: Really denies any significant family history. SOCIAL HISTORY: She lives at home with her son. Denies alcohol, tobacco, or drug use. REVIEW OF SYSTEMS: She does note a recent apparent weight loss. She has had a poor appetite for several months and indicates food does not taste good to her. Knee pain has lessened somewhat. Again the right ankle wound has been going on for about probably a month based on her recollection. She denies any radiating pain, numbness, or tingling in the extremities and no specific injury that would precipitate any of her ongoing issues. PHYSICAL EXAMINATION: GENERAL: Again, morbidly obese 47-year-old -[place] female, pleasant, cooperative, alert and oriented, no apparent distress. EXTREMITIES: Examination of the lower extremities reveals a full thickness tissue breakdown over the most prominent aspect of the distal fibula over the right ankle and about a quarter size wound breakdown that is currently dressed. Extremities are warm. She has pain on any extremes of motion of the right foot and ankle, less so over the left foot, diffuse tenderness over both knees, but no real warmth or erythema. Effusion is not elicited although somewhat difficult on examination just due to her obesity. IMAGING: X-rays revealed significant destruction at both throughout her foot and ankle, typical of a neuropathic arthropathy or so-called Charcot foot and also changes over the distal fibula overlying the wound suspicious for osteomyelitis. IMPRESSION: 1. Right ankle wound with osteomyelitis. 2. Morbid obesity, bedbound for the past 3-4 years. TREATMENT PLAN: I discussed with the patient and her visitors with her approval for some treatment options of antibiotics and wound care to treat the ankle, although would be absolutely necessary to keep pressure off the area to have any hope of healing. I further indicated that it is very difficult to cure osteomyelitis with antibiotics alone and even with a cure for it, we would really have to progress with tissue coverage to prevent recurrence. In addition, if infection would worsen, certainly it could spread throughout her bloodstream and cause a health hazard to the rest of her leg or even her life. A more definitive treatment at this time given the fact that she has not ambulated in several years, may be below knee amputation particularly given the condition of her foot on x-ray, which shows significant breakdown of the bone and signs of neuropathic arthropathy, which really cannot be surgically treated with any type of procedure, particularly given the wound breakdown and complications that she has currently. That would argue more toward consideration of amputation, particularly if she was not making any progress with the wound care and antibiotics regimen. She is not willing to consider amputation at this time, but would like to proceed with some wound care and antibiotics and she and her family were asking us decision for this and I thought it made most sense really to try the wound care and antibiotics for several weeks and see what progress is really being made. Certainly amputation is a good option if no progress is being made, but otherwise can continue . All her questions were answered at this time and we will continue current medical supportive care, wound care, and appropriate antibiotics at this time. SUSAN GAYLE MD DR: MADELAINE/maricarmen JOB#: [id number] / [id number]
[2017-06-09 07:00] VITALS: BP 119/78
[2017-06-09 07:07] LABS: ALBUMIN 2.3 g/dL (3.4-5.0); CALCIUM 9.9 mg/dL (8.5-10.1); CREATININE 1.1 mg/dL (0.6-1.0); GFR 64.4; POTASSIUM 3.8 mmol/L (3.5-5.1)
[2017-06-09] MEDS: VANCOMYCIN 2 GM in IV NORMAL SALINE 500ML BAG 500 ML IV SCH ×2 (07:17→22:31)
[2017-06-09] MEDS: LORazepam 0.5 MG TABLET PO PRN (07:31)
[2017-06-09] MEDS ORDERED: POLYETHYLENE GLYCOL 3350 17 GM PACKET. PO PRN (09:00)
[2017-06-09] MEDS: POTASSIUM CHLORIDE 20 MEQ/15 ML ORAL LIQUID. PEG SCH (09:00)
[2017-06-09] MEDS: LIDOCAINE (700MG/PATCH) PATCH. TD SCH (09:03)
[2017-06-09] MEDS: SERTRALINE 25 MG TABLET. PO SCH (09:03)
--- NOTE | 2017-06-09 09:52 | PDOC ---
PROGRESS NOTES Chief Complaint Chief Complaint acute uremic renal failure, azotemia ASSESSMENT AND PLAN; 1. PHILIP/ on poss CKD: improving, with uremia better, cont IV fluid 2. CHF: by hx; echo ND 3. Hyponatremia: resolved 4. Hypokalemia, hypomagnesemia: recurrent. replete 5. Knee pain: probable OA. appreciate Dr Gee's input. treat medically. 6. R ankle wound: d/w wound care team: deep, on bone, suspicious for osteo. Xrays positive for osteo. consult ID, ortho 7. Decub ulcers: wound care following 8. FTT: OT/PT eval; case management for placement 9. Depression: new dx. start ativan, zoloft 10. morbid obesity, BMI 65, w/ poor habitus and deconditioning and very limited mobility History of Present Illness History of Present Illness calm and pleasant with me to day no new complaints knee pain, c/o pain whenever she has to move. appetite is poor discussed with Dr. Gee, pt will likely need long-term residential placement Vitals Vitals Vital Signs Date Time Temp Pulse Resp B/P (MAP) Pulse Ox O2 Delivery O2 Flow Rate FiO2 06/09/17 07:00 98.6 88 20 119/78 (92) 99 Room Air 98.6 Physical Exam General: Alert, Cooperative, No acute distress Heart: Regular rate Lungs: Clear Abdomen: Normal bowel sounds, Other (massive obesity) Extremities: No edema, Other (R lat ankle wound with fluctuance) Skin: No rashes, Other (superficial desquamation are on R lat pannus, pressure ulcers) Labs LABS Laboratory Tests Test 06/08/17 13:15 06/09/17 06:15 Erythrocyte Sedimentation Rate 118 (0-25) Sodium Level 145 mmol/L (136-145) Potassium Level 3.8 mmol/L (3.5-5.1) Chloride Level 110 mmol/L (98-107) Carbon Dioxide Level 21 mmol/L (21-32) Anion Gap 14 (6-14) Blood Urea Nitrogen 51 mg/dL (7-20) Creatinine 1.1 mg/dL (0.6-1.0) Estimated GFR (Cockcroft-Gault) 64.4 Glucose Level 86 mg/dL (70-99) Calcium Level 9.9 mg/dL (8.5-10.1) Phosphorus Level 2.0 mg/dL (2.6-4.7) Albumin 2.3 g/dL (3.4-5.0) Assessment and Plan Assessmemt and Plan Problems Medical Problems: (1) Acute renal failure Status: Acute (2) Chronic renal insufficiency Status: Acute (3) Dehydration Status: Acute (4) Lower extremity pain Status: Acute Problems: Comment Review of Relevant I have reviewed the following items negra (where applicable) has been applied. Labs Laboratory Tests Test 06/07/17 12:45 06/08/17 06:30 06/08/17 13:15 06/09/17 06:15 Urine Protein 14.2 mg/dL (Not Estab.) Urine Creatinine 24 Hour 763 mg/24 hr (800-1800) Creatinine Clearance 24 Hour 35 mL/min (88-128) Urine Protein 24 Hr Calculated Comment mg/24 hr (30-150) Creatinine 1.52 mg/dL (0.57-1.00) 1.1 mg/dL (0.6-1.0) 1.1 mg/dL (0.6-1.0) Estimated GFR (Non- 41 (>59) EGFR 47 (>59) Sodium Level 146 mmol/L (136-145) 145 mmol/L (136-145) Potassium Level 2.9 mmol/L (3.5-5.1) 3.8 mmol/L (3.5-5.1) Chloride Level 108 mmol/L (98-107) 110 mmol/L (98-107) Carbon Dioxide Level 21 mmol/L (21-32) 21 mmol/L (21-32) Anion Gap 17 (6-14) 14 (6-14) Blood Urea Nitrogen 68 mg/dL (7-20) 51 mg/dL (7-20) Estimated GFR (Cockcroft-Gault) 64.4 64.4 Glucose Level 90 mg/dL (70-99) 86 mg/dL (70-99) Calcium Level 10.0 mg/dL (8.5-10.1) 9.9 mg/dL (8.5-10.1) Phosphorus Level 2.9 mg/dL (2.6-4.7) 2.0 mg/dL (2.6-4.7) Magnesium Level 1.6 mg/dL (1.8-2.4) Albumin 2.3 g/dL (3.4-5.0) 2.3 g/dL (3.4-5.0) Erythrocyte Sedimentation Rate 118 (0-25) Laboratory Tests Test 06/08/17 13:15 06/09/17 06:15 Erythrocyte Sedimentation Rate 118 (0-25) Sodium Level 145 mmol/L (136-145) Potassium Level 3.8 mmol/L (3.5-5.1) Chloride Level 110 mmol/L (98-107) Carbon Dioxide Level 21 mmol/L (21-32) Anion Gap 14 (6-14) Blood Urea Nitrogen 51 mg/dL (7-20) Creatinine 1.1 mg/dL (0.6-1.0) Estimated GFR (Cockcroft-Gault) 64.4 Glucose Level 86 mg/dL (70-99) Calcium Level 9.9 mg/dL (8.5-10.1) Phosphorus Level 2.0 mg/dL (2.6-4.7) Albumin 2.3 g/dL (3.4-5.0) Microbiology 06/05/17 Urine Culture - Final, Complete 06/05/17 Urine Culture Result 1 (ROSANNA) - Final, Complete 06/07/17 Gram Stain - Final, Complete Medications Current Medications Ondansetron HCl (Zofran) 4 mg 1X ONCE IV Last administered on 06/04/17 18:59 ; Start 06/04/17 at 18:30; Stop 06/04/17 at 18:31; Status DC Sodium Chloride 1,000 ml @ 1,000 mls/hr 1X ONCE IV Last administered on 18:58; Start 06/04/17 at 18:30; Stop 06/04/17 at 19:29; Status DC Hydromorphone HCl (Dilaudid) 0.5 mg 1X ONCE IV Last administered on 06/04/17 19:00; Start 06/04/17 at 18:30; Stop 06/04/17 at 18:31; Status DC Ondansetron HCl (Zofran) 4 mg PRN Q8HRS PRN IV NAUSEA/VOMITING Last administered on 06/05/17 15:50; Start 06/04/17 at 19:15; Stop 06/05/17 at 19:14 ; Status DC Fentanyl Citrate (Fentanyl 2ml Vial) 50 mcg PRN Q2HR PRN IV PAIN Last administered on 06/05/17 15:51; Start 06/04/17 at 19:15; Stop 06/05/17 at 19:14 ; Status DC Sodium Chloride 1,000 ml @ 150 mls/hr Q6H40M IV Last administered on 14:55; Start 06/04/17 at 19:05; Stop 06/05/17 at 19:04; Status DC Acetaminophen (Tylenol) 650 mg PRN Q4HRS PRN PO FEVER Last administered on 06/05 13:02; Start 06/04/17 at 19:15; Stop 06/05/17 at 19:14; Status DC Magnesium Sulfate/ Dextrose 50 ml @ 25 mls/hr PRN DAILY PRN IV for Mag < 1.7 on am labs; Start 06/05/17 at 09:30; Stop 06/08/17 at 11:59; Status DC Lorazepam (Ativan) 0.5 mg PRN Q8HRS PRN PO ANXIETY / AGITATION Last administered on 06/09/17 07:31; Start 06/05/17 at 10:45 Sertraline HCl (Zoloft) 25 mg DAILY PO Last administered on 06/09/17 09:03; Start 06/05/17 at 11:30 Acetaminophen/ Hydrocodone Bitart (Lortab 7.5/325) 1 tab PRN Q4HRS PRN PO PAIN ; Start 06/05/17 at 19:30 Acetaminophen/ Hydrocodone Bitart (Lortab 7.5/325) 2 tab PRN Q4HRS PRN PO PAIN Last administered on 06/08/17 22:31; Start 06/05/17 at 19:30 Ondansetron HCl (Zofran) 4 mg PRN Q4HRS PRN IV NAUSEA/VOMITING Last administered on 06/06/17 09:27; Start 06/06/17 at 03:15; Stop 06/07/17 at 03:14 ; Status DC Potassium Chloride (Klor-Con) 40 meq 1X ONCE PO Last administered on 09:28; Start 06/06/17 at 09:15; Stop 06/06/17 at 09:16; Status DC Potassium Chloride (Klor-Con) 40 meq 1X ONCE PO Last administered on 12:51; Start 06/06/17 at 12:00; Stop 06/06/17 at 12:01; Status DC Sodium Chloride 1,000 ml @ 150 mls/hr Q6H40M IV ; Start 06/06/17 at 13:15; Stop 06/06/17 at 13:18; Status DC Potassium Chloride (Klor-Con) 20 meq DAILYWBKFT PO Last administered on 09:11; Start 06/07/17 at 08:00; Stop 06/08/17 at 09:47; Status DC Lidocaine (Lidoderm) 1 patch DAILY TD Last administered on 06/09/17 09:03; Start 06/07/17 at 09:00 Sodium Chloride 1,000 ml @ 150 mls/hr Q6H40M PRN IV . Last administered on 06/07 20:21; Start 06/06/17 at 13:30; Stop 06/07/17 at 21:05; Status DC Sodium Chloride 1,000 ml @ 100 mls/hr Q10H IV Last administered on 06/08/17 05:37; Start 06/07/17 at 21:30; Stop 06/08/17 at 11:59; Status DC Diphenhydramine HCl (Benadryl) 25 mg PRN Q6HRS PRN PO ITCHING; Start 06/07/17 at 21:15 Potassium Citrate (Urocit-K) 40 meq BIDACBL PO ; Start 06/08/17 at 08:00; Stop 06/08/17 at 09:47; Status DC Potassium Chloride (KCl Oral Soln) 40 meq BIDACBL PEG Last administered on 06/08 18:24; Start 06/08/17 at 10:00; Stop 06/09/17 at 08:57; Status DC Magnesium Sulfate/ Dextrose 100 ml @ 25 mls/hr 1X ONCE IV Last administered on 06/08/17 13:22; Start 06/08/17 at 12:30; Stop 06/08/17 at 16:29; Status DC Potassium Chloride 30 meq/ Sodium Chloride 1,015 ml @ 75 mls/hr [id number] IV Last administered on 06/08/17 13:21; Start 06/08/17 at 12:30 Magnesium Sulfate/ Dextrose 50 ml @ 25 mls/hr 1X ONCE IV ; Start 06/08/17 at 12 :15; Stop 06/08/17 at 14:14; Status Cancel Vancomycin HCl (Vanco Per Pharmacy) 1 each PRN DAILY PRN MC SEE COMMENTS Last administered on 06/08/17 19:38; Start 06/08/17 at 16:00 Piperacillin Sod/ Tazobactam Sod 3.375 gm/Sodium Chloride 50 ml @ 100 mls/hr Q6HRS IV Last administered on 06/09/17 06:04; Start 06/08/17 at 16:30 Vancomycin HCl 2 gm/Sodium Chloride 500 ml @ 250 mls/hr 1X ONCE IV Last administered on 06/08/17 19:29; Start 06/08/17 at 16:30; Stop 06/08/17 at 18:29 ; Status DC Vancomycin HCl 2 gm/Sodium Chloride 500 ml @ 250 mls/hr Q12H IV Last administered on 06/09/17 07:17; Start 06/09/17 at 07:00 Vancomycin HCl 1 each 1X ONCE MC ; Start 06/10/17 at 06:30; Stop 06/10/17 at 06 :31 Ondansetron HCl (Zofran) 4 mg PRN Q6HRS PRN IV NAUSEA/VOMITING Last administered on 06/08/17 23:08; Start 06/08/17 at 23:00 Ondansetron HCl (Zofran) 4 mg 1X ONCE IV Last administered on 06/09/17 03:49 ; Start 06/09/17 at 04:00; Stop 06/09/17 at 04:01; Status DC Potassium Chloride (KCl Oral Soln) 40 meq DAILY PEG ; Start 06/09/17 at 09:00 Polyethylene Glycol (miraLAX PACKET) 17 gm PRN DAILY PRN PO CONSTIPATION; Start 06/09/17 at 09:00 Docusate Sodium (Colace) 100 mg DAILY PO ; Start 06/09/17 at 09:00 Active Scripts Active Reported [No Home Meds] Vitals/I & O Vital Sign - Last 24 Hours 06/08/17 06/08/17 06/08/17 06/08/17 10:30 11:00 14:44 19:00 Temp 97.9 98.6 98.1 97.9 98.6 98.1 Pulse 97 90 52 Resp 20 20 20 23 B/P (MAP) 131/86 (101) 140/80 (100) 120/58 (78) Pulse Ox 93 98 98 100 O2 Delivery Room Air Room Air Room Air Room Air 06/08/17 06/08/17 06/08/17 06/09/17 22:17 22:31 23:00 02:47 Temp 98.4 98.4 Pulse 94 Resp 20 22 22 B/P (MAP) 116/95 (102) Pulse Ox 100 O2 Delivery Room Air Room Air Room Air 06/09/17 07:00 Temp 98.6 98.6 Pulse 88 Resp 20 B/P (MAP) 119/78 (92) Pulse Ox 99 O2 Delivery Room Air Intake and Output 06/08/17 06/08/17 06/09/17 15:00 23:00 07:00 Intake Total 350 ml 450 ml 120 ml Output Total 600 ml 230 ml Balance 350 ml -150 ml -110 ml GEORGE GOODWIN MD Jun 09, 2017 09:52
--- NOTE | 2017-06-09 10:22 | PDOC ---
PROGRESS NOTES Subjective Subjective She had no new complaints. Objective Objective Vital Signs Date Time Temp Pulse Resp B/P (MAP) Pulse Ox O2 Delivery O2 Flow Rate FiO2 06/09/17 07:00 98.6 88 20 119/78 (92) 99 Room Air 98.6 Intake and Output 06/09/17 07:00 Intake Total 920 ml Output Total 830 ml Balance 90 ml Intake Oral 920 ml Output Urine Total 600 ml Emesis 230 ml Physical Exam Physical Exam She is alert and seems to be comfortable and no change noted with her physical condition and agree with 's recommendations. Assessment Assessment Problems Medical Problems: (1) Acute renal failure Status: Acute (2) Chronic renal insufficiency Status: Acute (3) Dehydration Status: Acute (4) Lower extremity pain Status: Acute Plan Plan of Care To continue present care plans. Comment Review of Relevant I have reviewed the following items negra (where applicable) has been applied. Labs Laboratory Tests Test 06/07/17 12:45 06/08/17 06:30 06/08/17 13:15 06/09/17 06:15 Urine Protein 14.2 mg/dL (Not Estab.) Urine Creatinine 24 Hour 763 mg/24 hr (800-1800) Creatinine Clearance 24 Hour 35 mL/min (88-128) Urine Protein 24 Hr Calculated Comment mg/24 hr (30-150) Creatinine 1.52 mg/dL (0.57-1.00) 1.1 mg/dL (0.6-1.0) 1.1 mg/dL (0.6-1.0) Estimated GFR (Non- 41 (>59) EGFR 47 (>59) Sodium Level 146 mmol/L (136-145) 145 mmol/L (136-145) Potassium Level 2.9 mmol/L (3.5-5.1) 3.8 mmol/L (3.5-5.1) Chloride Level 108 mmol/L (98-107) 110 mmol/L (98-107) Carbon Dioxide Level 21 mmol/L (21-32) 21 mmol/L (21-32) Anion Gap 17 (6-14) 14 (6-14) Blood Urea Nitrogen 68 mg/dL (7-20) 51 mg/dL (7-20) Estimated GFR (Cockcroft-Gault) 64.4 64.4 Glucose Level 90 mg/dL (70-99) 86 mg/dL (70-99) Calcium Level 10.0 mg/dL (8.5-10.1) 9.9 mg/dL (8.5-10.1) Phosphorus Level 2.9 mg/dL (2.6-4.7) 2.0 mg/dL (2.6-4.7) Magnesium Level 1.6 mg/dL (1.8-2.4) Albumin 2.3 g/dL (3.4-5.0) 2.3 g/dL (3.4-5.0) Erythrocyte Sedimentation Rate 118 (0-25) Laboratory Tests Test 06/08/17 13:15 06/09/17 06:15 Erythrocyte Sedimentation Rate 118 (0-25) Sodium Level 145 mmol/L (136-145) Potassium Level 3.8 mmol/L (3.5-5.1) Chloride Level 110 mmol/L (98-107) Carbon Dioxide Level 21 mmol/L (21-32) Anion Gap 14 (6-14) Blood Urea Nitrogen 51 mg/dL (7-20) Creatinine 1.1 mg/dL (0.6-1.0) Estimated GFR (Cockcroft-Gault) 64.4 Glucose Level 86 mg/dL (70-99) Calcium Level 9.9 mg/dL (8.5-10.1) Phosphorus Level 2.0 mg/dL (2.6-4.7) Albumin 2.3 g/dL (3.4-5.0) Microbiology 06/05/17 Urine Culture - Final, Complete 06/05/17 Urine Culture Result 1 (ROSANNA) - Final, Complete 06/07/17 Gram Stain - Final, Complete Medications Current Medications Ondansetron HCl (Zofran) 4 mg 1X ONCE IV Last administered on 06/04/17 18:59 ; Start 06/04/17 at 18:30; Stop 06/04/17 at 18:31; Status DC Sodium Chloride 1,000 ml @ 1,000 mls/hr 1X ONCE IV Last administered on 18:58; Start 06/04/17 at 18:30; Stop 06/04/17 at 19:29; Status DC Hydromorphone HCl (Dilaudid) 0.5 mg 1X ONCE IV Last administered on 06/04/17 19:00; Start 06/04/17 at 18:30; Stop 06/04/17 at 18:31; Status DC Ondansetron HCl (Zofran) 4 mg PRN Q8HRS PRN IV NAUSEA/VOMITING Last administered on 06/05/17 15:50; Start 06/04/17 at 19:15; Stop 06/05/17 at 19:14 ; Status DC Fentanyl Citrate (Fentanyl 2ml Vial) 50 mcg PRN Q2HR PRN IV PAIN Last administered on 06/05/17 15:51; Start 06/04/17 at 19:15; Stop 06/05/17 at 19:14 ; Status DC Sodium Chloride 1,000 ml @ 150 mls/hr Q6H40M IV Last administered on 14:55; Start 06/04/17 at 19:05; Stop 06/05/17 at 19:04; Status DC Acetaminophen (Tylenol) 650 mg PRN Q4HRS PRN PO FEVER Last administered on 06/05 13:02; Start 06/04/17 at 19:15; Stop 06/05/17 at 19:14; Status DC Magnesium Sulfate/ Dextrose 50 ml @ 25 mls/hr PRN DAILY PRN IV for Mag < 1.7 on am labs; Start 06/05/17 at 09:30; Stop 06/08/17 at 11:59; Status DC Lorazepam (Ativan) 0.5 mg PRN Q8HRS PRN PO ANXIETY / AGITATION Last administered on 06/09/17 07:31; Start 06/05/17 at 10:45 Sertraline HCl (Zoloft) 25 mg DAILY PO Last administered on 06/09/17 09:03; Start 06/05/17 at 11:30 Acetaminophen/ Hydrocodone Bitart (Lortab 7.5/325) 1 tab PRN Q4HRS PRN PO PAIN ; Start 06/05/17 at 19:30 Acetaminophen/ Hydrocodone Bitart (Lortab 7.5/325) 2 tab PRN Q4HRS PRN PO PAIN Last administered on 06/08/17 22:31; Start 06/05/17 at 19:30 Ondansetron HCl (Zofran) 4 mg PRN Q4HRS PRN IV NAUSEA/VOMITING Last administered on 06/06/17 09:27; Start 06/06/17 at 03:15; Stop 06/07/17 at 03:14 ; Status DC Potassium Chloride (Klor-Con) 40 meq 1X ONCE PO Last administered on 09:28; Start 06/06/17 at 09:15; Stop 06/06/17 at 09:16; Status DC Potassium Chloride (Klor-Con) 40 meq 1X ONCE PO Last administered on 12:51; Start 06/06/17 at 12:00; Stop 06/06/17 at 12:01; Status DC Sodium Chloride 1,000 ml @ 150 mls/hr Q6H40M IV ; Start 06/06/17 at 13:15; Stop 06/06/17 at 13:18; Status DC Potassium Chloride (Klor-Con) 20 meq DAILYWBKFT PO Last administered on 09:11; Start 06/07/17 at 08:00; Stop 06/08/17 at 09:47; Status DC Lidocaine (Lidoderm) 1 patch DAILY TD Last administered on 06/09/17 09:03; Start 06/07/17 at 09:00 Sodium Chloride 1,000 ml @ 150 mls/hr Q6H40M PRN IV . Last administered on 06/07 20:21; Start 06/06/17 at 13:30; Stop 06/07/17 at 21:05; Status DC Sodium Chloride 1,000 ml @ 100 mls/hr Q10H IV Last administered on 06/08/17 05:37; Start 06/07/17 at 21:30; Stop 06/08/17 at 11:59; Status DC Diphenhydramine HCl (Benadryl) 25 mg PRN Q6HRS PRN PO ITCHING; Start 06/07/17 at 21:15 Potassium Citrate (Urocit-K) 40 meq BIDACBL PO ; Start 06/08/17 at 08:00; Stop 06/08/17 at 09:47; Status DC Potassium Chloride (KCl Oral Soln) 40 meq BIDACBL PEG Last administered on 06/08 18:24; Start 06/08/17 at 10:00; Stop 06/09/17 at 08:57; Status DC Magnesium Sulfate/ Dextrose 100 ml @ 25 mls/hr 1X ONCE IV Last administered on 06/08/17 13:22; Start 06/08/17 at 12:30; Stop 06/08/17 at 16:29; Status DC Potassium Chloride 30 meq/ Sodium Chloride 1,015 ml @ 75 mls/hr [id number] IV Last administered on 06/08/17 13:21; Start 06/08/17 at 12:30 Magnesium Sulfate/ Dextrose 50 ml @ 25 mls/hr 1X ONCE IV ; Start 06/08/17 at 12 :15; Stop 06/08/17 at 14:14; Status Cancel Vancomycin HCl (Vanco Per Pharmacy) 1 each PRN DAILY PRN MC SEE COMMENTS Last administered on 06/08/17 19:38; Start 06/08/17 at 16:00 Piperacillin Sod/ Tazobactam Sod 3.375 gm/Sodium Chloride 50 ml @ 100 mls/hr Q6HRS IV Last administered on 06/09/17 06:04; Start 06/08/17 at 16:30 Vancomycin HCl 2 gm/Sodium Chloride 500 ml @ 250 mls/hr 1X ONCE IV Last administered on 06/08/17 19:29; Start 06/08/17 at 16:30; Stop 06/08/17 at 18:29 ; Status DC Vancomycin HCl 2 gm/Sodium Chloride 500 ml @ 250 mls/hr Q12H IV Last administered on 06/09/17 07:17; Start 06/09/17 at 07:00 Vancomycin HCl 1 each 1X ONCE MC ; Start 06/10/17 at 06:30; Stop 06/10/17 at 06 :31 Ondansetron HCl (Zofran) 4 mg PRN Q6HRS PRN IV NAUSEA/VOMITING Last administered on 06/08/17 23:08; Start 06/08/17 at 23:00 Ondansetron HCl (Zofran) 4 mg 1X ONCE IV Last administered on 06/09/17 03:49 ; Start 06/09/17 at 04:00; Stop 06/09/17 at 04:01; Status DC Potassium Chloride (KCl Oral Soln) 40 meq DAILY PEG ; Start 06/09/17 at 09:00 Polyethylene Glycol (miraLAX PACKET) 17 gm PRN DAILY PRN PO CONSTIPATION; Start 06/09/17 at 09:00 Docusate Sodium (Colace) 100 mg DAILY PO ; Start 06/09/17 at 09:00 Active Scripts Active Reported [No Home Meds] Vitals/I & O Vital Sign - Last 24 Hours 06/08/17 06/08/17 06/08/17 06/08/17 10:30 11:00 14:44 19:00 Temp 97.9 98.6 98.1 97.9 98.6 98.1 Pulse 97 90 52 Resp 20 20 20 23 B/P (MAP) 131/86 (101) 140/80 (100) 120/58 (78) Pulse Ox 93 98 98 100 O2 Delivery Room Air Room Air Room Air Room Air 06/08/17 06/08/17 06/08/17 06/09/17 22:17 22:31 23:00 02:47 Temp 98.4 98.4 Pulse 94 Resp 20 22 22 B/P (MAP) 116/95 (102) Pulse Ox 100 O2 Delivery Room Air Room Air Room Air 06/09/17 07:00 Temp 98.6 98.6 Pulse 88 Resp 20 B/P (MAP) 119/78 (92) Pulse Ox 99 O2 Delivery Room Air Intake and Output 06/08/17 06/08/17 06/09/17 15:00 23:00 07:00 Intake Total 350 ml 450 ml 120 ml Output Total 600 ml 230 ml Balance 350 ml -150 ml -110 ml MIKALA REILLY MD Jun 09, 2017 10:22
[2017-06-09 11:00] VITALS: BP 132/87
--- NOTE | 2017-06-09 11:14 | PDOC ---
Infectious Disease Note Subjective Subjective Quiet Not engaging in conversation Vital Sign Vital Signs Vital Signs Date Time Temp Pulse Resp B/P (MAP) Pulse Ox O2 Delivery O2 Flow Rate FiO2 06/09/17 07:00 98.6 88 20 119/78 (92) 99 Room Air 98.6 Physical Exam PHYSICAL EXAM GENERAL: Propped up in bed, tearful, LUNGS: Clear to auscultation. HEART: Normal S1, S2. ABDOMEN: Obese, bowel sounds are present, soft, nontender. : Mcgill. EXTREMITIES: No gross edema or cyanosis. SKIN: Without rash. Multiple wounds, including left lateral pressure wound NEUROLOGIC: Alert and oriented. Peripheral IV: ok Labs Lab Laboratory Tests Test 06/08/17 13:15 06/09/17 06:15 Erythrocyte Sedimentation Rate 118 (0-25) Sodium Level 145 mmol/L (136-145) Potassium Level 3.8 mmol/L (3.5-5.1) Chloride Level 110 mmol/L (98-107) Carbon Dioxide Level 21 mmol/L (21-32) Anion Gap 14 (6-14) Blood Urea Nitrogen 51 mg/dL (7-20) Creatinine 1.1 mg/dL (0.6-1.0) Estimated GFR (Cockcroft-Gault) 64.4 Glucose Level 86 mg/dL (70-99) Calcium Level 9.9 mg/dL (8.5-10.1) Phosphorus Level 2.0 mg/dL (2.6-4.7) Albumin 2.3 g/dL (3.4-5.0) Micro URINE CULTURE RES 1 Final Comment No growth in 48 hours. 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 appreciate ortho input Attending Co-Sign The patient was seen and interviewed as well as examined at the bedside. The chart was reviewed. The case was discussed. Agree with the plan of care. EZEKIEL HERMOSILLO APRN Jun 09, 2017 11:13 KELSEY RIZZO MD Jun 09, 2017 13:24
[2017-06-09] MEDS: DOCUSATE SODIUM 100 MG CAPSULE. PO SCH (13:06)
[2017-06-09] MEDS: VANCOMYCIN PER PHARMACY MC PRN (13:42)
--- NOTE | 2017-06-09 14:58 | PDOC ---
Renal-Progress Notes Subjective Notes Notes NO NEW COMPLAINTS History of Present Illness Hx of present illness NO CHANGE Vitals Vitals Vital Signs Date Time Temp Pulse Resp B/P (MAP) Pulse Ox O2 Delivery O2 Flow Rate FiO2 06/09/17 13:07 20 92 Room Air 06/09/17 11:00 98.6 91 132/87 (102) 98.6 Weight Weight [ ] I.O. Intake and Output Intake and Output 06/09/17 07:00 Intake Total 920 ml Output Total 830 ml Balance 90 ml Intake Oral 920 ml Output Urine Total 600 ml Emesis 230 ml Labs Labs Laboratory Tests Test 06/09/17 06:15 Sodium Level 145 mmol/L (136-145) Potassium Level 3.8 mmol/L (3.5-5.1) Chloride Level 110 mmol/L (98-107) Carbon Dioxide Level 21 mmol/L (21-32) Anion Gap 14 (6-14) Blood Urea Nitrogen 51 mg/dL (7-20) Creatinine 1.1 mg/dL (0.6-1.0) Estimated GFR (Cockcroft-Gault) 64.4 Glucose Level 86 mg/dL (70-99) Calcium Level 9.9 mg/dL (8.5-10.1) Phosphorus Level 2.0 mg/dL (2.6-4.7) Magnesium Level 2.2 mg/dL (1.8-2.4) Albumin 2.3 g/dL (3.4-5.0) Micro Micro Microbiology 06/05/17 Urine Culture - Final, Complete 06/05/17 Urine Culture Result 1 (ROSANNA) - Final, Complete 06/07/17 Gram Stain - Final, Complete Review of Systems Constitutional: yes: alert, oriented Ears/Nose/Throat: Yes: no symptom reported Pulmonary: Yes no symptom reported Gastrointestional: Yes: no symptom reported Musculoskeletal: Yes: no symptom reported Skin: Yes no symptom reported Psychiatric/Neurological: Yes: no symptom reported Physical Exam General Appearance: no apparent distress Skin: warm Respiratory: decreased breath sounds Heart: S1S2 Abdomen: soft, bowel sounds present Extremities: pulses present Neurology: oriented Assessment Assessment IMP MORBID OBESITY DEHYDRATION PHILIP-CR IMPROVED FROM 2.5 TO 1.1 LOW K-CORRECTED LOW MAG-CORRECTED LOW PO4 LEUCOCYTOSIS RIGHT ANKLE WOUND PLAN REPLACE K AND MAG NEEDED CONT WITH IVF'S ENC PO FLUID INTAKE REPLACE PO4 HAMMONDS,MICHAEL S MD Jun 09, 2017 14:58
[2017-06-09 15:00] VITALS: BP 120/70
[2017-06-09 19:00] VITALS: BP 123/72
[2017-06-09] MEDS: POTASSIUM PHOSPHATE DIBASIC 10 MMOL in IV NORMAL SALINE 100ML 100 ML IV SCH (19:35)
[2017-06-09 22:40] VITALS: BP 130/82
[2017-06-10] MEDS: PIPERACILLIN/TAZOBACTAM 3.375 GM in IV NORMAL SALINE 50ML 50 ML IV SCH ×4 (01:12→17:47)
[2017-06-10] MEDS: POTASSIUM PHOSPHATE DIBASIC 10 MMOL in IV NORMAL SALINE 100ML 100 ML IV SCH (02:16)
[2017-06-10] MEDS: POTASSIUM CHLORIDE 30 MEQ in IV 1/2 NORMAL SALINE 1,000 ML IV SCH ×4 (06:44→22:26)
[2017-06-10 07:00] VITALS: BP 136/75
[2017-06-10] MEDS: VANCOMYCIN 2 GM in IV NORMAL SALINE 500ML BAG 500 ML IV SCH (07:00)
[2017-06-10 08:13] LABS: ALBUMIN 2.3 g/dL (3.4-5.0); CALCIUM 8.8 mg/dL (8.5-10.1); CREATININE 1.1 mg/dL (0.6-1.0); GFR 64.4; MAGNESIUM 1.7 mg/dL (1.8-2.4); PHOSPHORUS 3.7 mg/dL (2.6-4.7); POTASSIUM 4.1 mmol/L (3.5-5.1)
[2017-06-10] MEDS: VANCOMYCIN PER PHARMACY MC PRN (08:35)
--- NOTE | 2017-06-10 08:53 | PDOC ---
PROGRESS NOTES Chief Complaint Chief Complaint acute uremic renal failure azotemia ASSESSMENT AND PLAN; 1. PHILIP/ on poss CKD: improving, with uremia better, cont IV fluid 2. CHF: by hx; echo ND 3. Hypernatremia: worsening. increase fluid intake 4. Hypokalemia, hypomagnesemia: recurrent. replete Mg IV 5. Knee pain: probable OA. appreciate Dr Gee's input. treat medically. 6. R ankle wound: d/w wound care team: deep, on bone, Xrays positive for osteo. rec for BKA, pt reluctant. trial of debridement and prolonged IV Abx. PICC line placement 7. Decub ulcers: wound care following 8. FTT: OT/PT eval; case management for placement 9. Depression: new dx. start ativan, zoloft 10. morbid obesity, BMI 65, w/ poor habitus and deconditioning and very limited mobility History of Present Illness History of Present Illness in tears because she state she was told she was on the OR schedule for Wednesday, she does not want amputation (called OR: not true) Vitals Vitals Vital Signs Date Time Temp Pulse Resp B/P (MAP) Pulse Ox O2 Delivery O2 Flow Rate FiO2 06/10/17 07:00 97.5 75 20 136/75 (95) 100 Room Air 97.5 Physical Exam General: Alert, Cooperative, No acute distress Heart: Regular rate Lungs: Clear Abdomen: Normal bowel sounds, Other (massive obesity) Extremities: No edema, Other (R lat ankle wound with fluctuance) Skin: No rashes, Other (superficial desquamation are on R lat pannus, pressure ulcers) Labs LABS Laboratory Tests Test 06/10/17 07:34 Sodium Level 147 mmol/L (136-145) Potassium Level 4.1 mmol/L (3.5-5.1) Chloride Level 112 mmol/L (98-107) Carbon Dioxide Level 24 mmol/L (21-32) Anion Gap 11 (6-14) Blood Urea Nitrogen 44 mg/dL (7-20) Creatinine 1.1 mg/dL (0.6-1.0) Estimated GFR (Cockcroft-Gault) 64.4 Glucose Level 82 mg/dL (70-99) Calcium Level 8.8 mg/dL (8.5-10.1) Phosphorus Level 3.7 mg/dL (2.6-4.7) Magnesium Level 1.7 mg/dL (1.8-2.4) Albumin 2.3 g/dL (3.4-5.0) Vancomycin Level Trough 39.2 mcg/mL (10.0-20.0) Vancomycin Last Dose Date 06/09/17 Vancomycin Last Dose Time 2200 COLLINS MENDOZA MD Jun 10, 2017 08:53
[2017-06-10] MEDS: POTASSIUM CHLORIDE 20 MEQ/15 ML ORAL LIQUID. PEG SCH (09:00)
[2017-06-10] MEDS: SERTRALINE 25 MG TABLET. PO SCH (09:36)
[2017-06-10] MEDS: LIDOCAINE (700MG/PATCH) PATCH. TD SCH (09:36)
[2017-06-10] MEDS: HYDROcodone/APAP 7.5/325MG 1 TAB TABLET PO PRN ×2 (09:36→18:09)
[2017-06-10] MEDS: DOCUSATE SODIUM 100 MG CAPSULE. PO SCH (09:37)
[2017-06-10] MEDS: ONDANSETRON PF 4 MG/2 ML VIAL. IV PRN ×2 (09:48→18:11)
--- NOTE | 2017-06-10 10:41 | PDOC ---
Infectious Disease Note Subjective Subjective Upset about possible need of amputation, wants to try antibiotics first. Father present and agrees. ROS ROS GEN: Denies fevers, chills, sweats CV: Denies chest pain RESP: Denies shortness of air, cough GI: Denies n/v/d Vital Sign Vital Signs Vital Signs Date Time Temp Pulse Resp B/P (MAP) Pulse Ox O2 Delivery O2 Flow Rate FiO2 06/10/17 09:36 Room Air 06/10/17 07:00 97.5 75 20 136/75 (95) 100 97.5 Physical Exam PHYSICAL EXAM GENERAL: Propped up in bed, ankle not elevated LUNGS: Clear to auscultation. HEART: Normal S1, S2. ABDOMEN: Obese, bowel sounds are present, soft, nontender. : Mcgill. EXTREMITIES: No gross edema or cyanosis. SKIN: Without rash. Multiple wounds, including left lateral pressure wound NEUROLOGIC: Alert and oriented. Peripheral IV: ok Labs Lab Laboratory Tests Test 06/10/17 07:34 Sodium Level 147 mmol/L (136-145) Potassium Level 4.1 mmol/L (3.5-5.1) Chloride Level 112 mmol/L (98-107) Carbon Dioxide Level 24 mmol/L (21-32) Anion Gap 11 (6-14) Blood Urea Nitrogen 44 mg/dL (7-20) Creatinine 1.1 mg/dL (0.6-1.0) Estimated GFR (Cockcroft-Gault) 64.4 Glucose Level 82 mg/dL (70-99) Calcium Level 8.8 mg/dL (8.5-10.1) Phosphorus Level 3.7 mg/dL (2.6-4.7) Magnesium Level 1.7 mg/dL (1.8-2.4) Albumin 2.3 g/dL (3.4-5.0) Vancomycin Level Trough 39.2 mcg/mL (10.0-20.0) Vancomycin Last Dose Date 06/09/17 Vancomycin Last Dose Time 2200 Micro URINE CULTURE RES 1 Final Comment No growth in 48 hours. 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 GNR -sed rate 118 Leukocytosis- stable Super morbid obesity w/ BMI 65, bedbound PHILIP, improving Plan Plan of Care d/c vanc (trough 39.2), continue Zosyn Await GNR ID Monitor WBC, renal function and temp Given patient's immobility and inability to off load, the wound not likely to heal. Patient declined BKA recommendation, wants trial of antibiotics Attending Co-Sign The patient was seen and interviewed as well as examined at the bedside. The chart was reviewed. The case was discussed. Agree with the plan of care. EZEKIEL HERMOSILLO APRN Jun 10, 2017 10:41 KELSEY RIZZO MD Jun 10, 2017 14:51
[2017-06-10 11:00] VITALS: BP 150/87
[2017-06-10] MEDS ORDERED: MAGNESIUM SULFATE 2GM 50 ML IV ONE ×2 (11:00→13:30)
--- NOTE | 2017-06-10 13:05 | PDOC ---
Renal-Progress Notes Subjective Notes Notes NONE History of Present Illness Hx of present illness NO CHANGE Vitals Vitals Vital Signs Date Time Temp Pulse Resp B/P (MAP) Pulse Ox O2 Delivery O2 Flow Rate FiO2 06/10/17 11:00 97.5 78 20 150/87 (108) 92 Room Air 97.5 Weight Weight [ ] I.O. Intake and Output Intake and Output 06/10/17 07:00 Intake Total 1303.3333 ml Output Total 1750 ml Balance -446.6667 ml Intake Oral 650 ml IV Total 653.3333 ml Output Urine Total 1750 ml Labs Labs Laboratory Tests Test 06/10/17 07:34 Sodium Level 147 mmol/L (136-145) Potassium Level 4.1 mmol/L (3.5-5.1) Chloride Level 112 mmol/L (98-107) Carbon Dioxide Level 24 mmol/L (21-32) Anion Gap 11 (6-14) Blood Urea Nitrogen 44 mg/dL (7-20) Creatinine 1.1 mg/dL (0.6-1.0) Estimated GFR (Cockcroft-Gault) 64.4 Glucose Level 82 mg/dL (70-99) Calcium Level 8.8 mg/dL (8.5-10.1) Phosphorus Level 3.7 mg/dL (2.6-4.7) Magnesium Level 1.7 mg/dL (1.8-2.4) Albumin 2.3 g/dL (3.4-5.0) Vancomycin Level Trough 39.2 mcg/mL (10.0-20.0) Vancomycin Last Dose Date 06/09/17 Vancomycin Last Dose Time 2200 Micro Micro Microbiology 06/05/17 Urine Culture - Final, Complete 06/05/17 Urine Culture Result 1 (ROSANNA) - Final, Complete 06/07/17 Gram Stain - Final, Complete Review of Systems Constitutional: yes: alert, oriented Ears/Nose/Throat: Yes: no symptom reported Pulmonary: Yes no symptom reported Gastrointestional: Yes: no symptom reported Musculoskeletal: Yes: no symptom reported Skin: Yes no symptom reported Psychiatric/Neurological: Yes: no symptom reported Physical Exam General Appearance: no apparent distress Skin: warm Respiratory: decreased breath sounds Heart: S1S2 Abdomen: soft, bowel sounds present Extremities: pulses present Neurology: oriented Assessment Assessment IMP MORBID OBESITY DEHYDRATION PHILIP-CR IMPROVED FROM 2.5 TO 1.1 LOW K-CORRECTED LOW MAG-CORRECTED LOW PO4-CORRECTED LEUCOCYTOSIS RIGHT ANKLE WOUND MILD HYPERNATREMIA PLAN REPLACE MAG CONT WITH IVF'S-CHANGE TO HYPOTONIC SALINE ENC PO FLUID INTAKE MICHAEL HAMMONDS MD Jun 10, 2017 13:05
--- NOTE | 2017-06-10 14:53 | PDOC2 ---
CONSULT Date of Consult Date of Consult DATE: 06/10/17 TIME: 14:19 Reason for Consult Reason for Consult: Right ankle ulcer Referring Physician Referring Physician: Dr. Villarreal Identification/Chief Complaint Chief Complaint Right ankle ulcer of one month's duration Problems: Source Source: Chart review, Patient History of Present Illness Reason for Visit: This is a 47-year-old patient who is seen in consultation for right ankle ulcer. Patient reports history of at least 1 month of ulceration to the right lateral ankle. In the process of admission and workup it is been determined that he suffers from osteomyelitis with suspicious x-ray findings and sedimentation rate of 118. The patient has been seen by Dr. Sosa who who felt the most definitive therapy would be BKA. The patient reacted negatively to this. At this time I believe cultures are pending. The patient is aware of local discomfort. She does report lassitude without basilio knowledge of fever and chills. She states appetite and intake have been decreased. The patient is examined in her bed. On my arrival to the bedside the patient was identified to have her right leg in full external rotation with direct pressure to the lateral malleolus. Past Medical History Cardiovascular: CHF Musculoskeletal: Osteoarthritis Renal/: Chronic renal insuff Past Surgical History Past Surgical History: , Hysterectomy Social History No ALCOHOL: none Drugs: None Lives: with Family Current Problem List Problem List Problems Medical Problems: (1) Acute renal failure Status: Acute (2) Chronic renal insufficiency Status: Acute (3) Dehydration Status: Acute (4) Lower extremity pain Status: Acute Current Medications Current Medications Current Medications Ondansetron HCl (Zofran) 4 mg 1X ONCE IV Last administered on 06/04/17 18:59 ; Start 06/04/17 at 18:30; Stop 06/04/17 at 18:31; Status DC Sodium Chloride 1,000 ml @ 1,000 mls/hr 1X ONCE IV Last administered on 18:58; Start 06/04/17 at 18:30; Stop 06/04/17 at 19:29; Status DC Hydromorphone HCl (Dilaudid) 0.5 mg 1X ONCE IV Last administered on 06/04/17 19:00; Start 06/04/17 at 18:30; Stop 06/04/17 at 18:31; Status DC Ondansetron HCl (Zofran) 4 mg PRN Q8HRS PRN IV NAUSEA/VOMITING Last administered on 06/05/17 15:50; Start 06/04/17 at 19:15; Stop 06/05/17 at 19:14 ; Status DC Fentanyl Citrate (Fentanyl 2ml Vial) 50 mcg PRN Q2HR PRN IV PAIN Last administered on 06/05/17 15:51; Start 06/04/17 at 19:15; Stop 06/05/17 at 19:14 ; Status DC Sodium Chloride 1,000 ml @ 150 mls/hr Q6H40M IV Last administered on 14:55; Start 06/04/17 at 19:05; Stop 06/05/17 at 19:04; Status DC Acetaminophen (Tylenol) 650 mg PRN Q4HRS PRN PO FEVER Last administered on 06/05 13:02; Start 06/04/17 at 19:15; Stop 06/05/17 at 19:14; Status DC Magnesium Sulfate/ Dextrose 50 ml @ 25 mls/hr PRN DAILY PRN IV for Mag < 1.7 on am labs; Start 06/05/17 at 09:30; Stop 06/08/17 at 11:59; Status DC Lorazepam (Ativan) 0.5 mg PRN Q8HRS PRN PO ANXIETY / AGITATION Last administered on 06/09/17 07:31; Start 06/05/17 at 10:45 Sertraline HCl (Zoloft) 25 mg DAILY PO Last administered on 06/10/17 09:36; Start 06/05/17 at 11:30 Acetaminophen/ Hydrocodone Bitart (Lortab 7.5/325) 1 tab PRN Q4HRS PRN PO PAIN ; Start 06/05/17 at 19:30 Acetaminophen/ Hydrocodone Bitart (Lortab 7.5/325) 2 tab PRN Q4HRS PRN PO PAIN Last administered on 06/10/17 09:36; Start 06/05/17 at 19:30 Ondansetron HCl (Zofran) 4 mg PRN Q4HRS PRN IV NAUSEA/VOMITING Last administered on 06/06/17 09:27; Start 06/06/17 at 03:15; Stop 06/07/17 at 03:14 ; Status DC Potassium Chloride (Klor-Con) 40 meq 1X ONCE PO Last administered on 09:28; Start 06/06/17 at 09:15; Stop 06/06/17 at 09:16; Status DC Potassium Chloride (Klor-Con) 40 meq 1X ONCE PO Last administered on 12:51; Start 06/06/17 at 12:00; Stop 06/06/17 at 12:01; Status DC Sodium Chloride 1,000 ml @ 150 mls/hr Q6H40M IV ; Start 06/06/17 at 13:15; Stop 06/06/17 at 13:18; Status DC Potassium Chloride (Klor-Con) 20 meq DAILYWBKFT PO Last administered on 09:11; Start 06/07/17 at 08:00; Stop 06/08/17 at 09:47; Status DC Lidocaine (Lidoderm) 1 patch DAILY TD Last administered on 06/10/17 09:36; Start 06/07/17 at 09:00 Sodium Chloride 1,000 ml @ 150 mls/hr Q6H40M PRN IV . Last administered on 06/07 20:21; Start 06/06/17 at 13:30; Stop 06/07/17 at 21:05; Status DC Sodium Chloride 1,000 ml @ 100 mls/hr Q10H IV Last administered on 06/08/17 05:37; Start 06/07/17 at 21:30; Stop 06/08/17 at 11:59; Status DC Diphenhydramine HCl (Benadryl) 25 mg PRN Q6HRS PRN PO ITCHING; Start 06/07/17 at 21:15 Potassium Citrate (Urocit-K) 40 meq BIDACBL PO ; Start 06/08/17 at 08:00; Stop 06/08/17 at 09:47; Status DC Potassium Chloride (KCl Oral Soln) 40 meq BIDACBL PEG Last administered on 06/08 18:24; Start 06/08/17 at 10:00; Stop 06/09/17 at 08:57; Status DC Magnesium Sulfate/ Dextrose 100 ml @ 25 mls/hr 1X ONCE IV Last administered on 06/08/17 13:22; Start 06/08/17 at 12:30; Stop 06/08/17 at 16:29; Status DC Potassium Chloride 30 meq/ Sodium Chloride 1,015 ml @ 75 mls/hr [id number] IV Last administered on 06/10/17 06:44; Start 06/08/17 at 12:30 Magnesium Sulfate/ Dextrose 50 ml @ 25 mls/hr 1X ONCE IV ; Start 06/08/17 at 12 :15; Stop 06/08/17 at 14:14; Status Cancel Vancomycin HCl (Vanco Per Pharmacy) 1 each PRN DAILY PRN MC SEE COMMENTS Last administered on 06/10/17 08:35; Start 06/08/17 at 16:00; Stop 06/10/17 at 10:43 ; Status DC Piperacillin Sod/ Tazobactam Sod 3.375 gm/Sodium Chloride 50 ml @ 100 mls/hr Q6HRS IV Last administered on 06/10/17 12:06; Start 06/08/17 at 16:30 Vancomycin HCl 2 gm/Sodium Chloride 500 ml @ 250 mls/hr 1X ONCE IV Last administered on 06/08/17 19:29; Start 06/08/17 at 16:30; Stop 06/08/17 at 18:29 ; Status DC Vancomycin HCl 2 gm/Sodium Chloride 500 ml @ 250 mls/hr Q12H IV Last administered on 06/09/17 22:31; Start 06/09/17 at 07:00; Stop 06/10/17 at 08:37 ; Status DC Vancomycin HCl 1 each 1X ONCE MC Last administered on 06/10/17 06:30; Start 06/10/17 at 06:30; Stop 06/10/17 at 06:31; Status DC Ondansetron HCl (Zofran) 4 mg PRN Q6HRS PRN IV NAUSEA/VOMITING Last administered on 06/10/17 09:48; Start 06/08/17 at 23:00 Ondansetron HCl (Zofran) 4 mg 1X ONCE IV Last administered on 06/09/17 03:49 ; Start 06/09/17 at 04:00; Stop 06/09/17 at 04:01; Status DC Potassium Chloride (KCl Oral Soln) 40 meq DAILY PEG ; Start 06/09/17 at 09:00 Polyethylene Glycol (miraLAX PACKET) 17 gm PRN DAILY PRN PO CONSTIPATION; Start 06/09/17 at 09:00 Docusate Sodium (Colace) 100 mg DAILY PO Last administered on 06/10/17 09:37; Start 06/09/17 at 09:00 Potassium Phosphate 10 mmol/ Sodium Chloride 103.3333 ml @ 51.667 m... Q2H IV Last administered on 06/10/17 02:16; Start 06/09/17 at 16:00; Stop 06/09/17 at 19:59; Status DC Vancomycin HCl 1 each 1X ONCE MC ; Start 06/11/17 at 06:00; Stop 06/11/17 at 06 :01; Status Cancel Magnesium Sulfate/ Dextrose 50 ml @ 25 mls/hr 1X ONCE IV Last administered on 06/10/17 12:50; Start 06/10/17 at 11:00; Stop 06/10/17 at 12:59; Status DC Magnesium Sulfate/ Dextrose 50 ml @ 25 mls/hr 1X ONCE IV ; Start 06/10/17 at 13 :30; Stop 06/10/17 at 15:29 Active Scripts Active Reported [No Home Meds] Allergies Allergies: Coded Allergies: No Known Drug Allergies (Unverified , 06/04/17) ROS General: YES: Fatigue, Appetite Gastrointestinal: Yes Nausea Musculoskeletal: Yes Joint Stiffness (knees), Yes Muscular Weakness, Yes Other (patient is nonambulatory having existed in bed or seated for some time. This appears to be secondary to arthritic discomfort and morbid obesity) Physical Exam General: Alert, Oriented X3, Cooperative (poorly cooperative with efforts to examine her wound. Us included simple internal rotation and elevation of the right lower extremity.), No acute distress HEENT: Atraumatic, PERRLA, EOMI, Mucous membr. moist/pink Lungs: Clear to auscultation (clear anteriorly), Normal air movement Heart: Regular rate Abdomen: Soft Extremities: No cyanosis, Other (trace edema) Skin: Other (roughly a 2 cm x 2 cm x 2 cm ulcer to the right lateral malleolus. Heavy slough and thick purulent material was evident in the ulcer site. This probes to bone. Significant undermining is present.) Neuro: Normal speech Psych/Mental Status: Other (patient oriented 3. Patient generally poorly cooperative.) MUSCULOSKELETAL: Other (patient is nonambulatory. She resists elevation of right lower extremity or torso or turning.) Vitals VITALS Vital Signs Date Time Temp Pulse Resp B/P (MAP) Pulse Ox O2 Delivery O2 Flow Rate FiO2 06/10/17 11:00 97.5 78 20 150/87 (108) 92 Room Air 97.5 Labs Labs Laboratory Tests Test 06/09/17 06:15 06/10/17 07:34 Sodium Level 145 mmol/L (136-145) 147 mmol/L (136-145) Potassium Level 3.8 mmol/L (3.5-5.1) 4.1 mmol/L (3.5-5.1) Chloride Level 110 mmol/L (98-107) 112 mmol/L (98-107) Carbon Dioxide Level 21 mmol/L (21-32) 24 mmol/L (21-32) Anion Gap 14 (6-14) 11 (6-14) Blood Urea Nitrogen 51 mg/dL (7-20) 44 mg/dL (7-20) Creatinine 1.1 mg/dL (0.6-1.0) 1.1 mg/dL (0.6-1.0) Estimated GFR (Cockcroft-Gault) 64.4 64.4 Glucose Level 86 mg/dL (70-99) 82 mg/dL (70-99) Calcium Level 9.9 mg/dL (8.5-10.1) 8.8 mg/dL (8.5-10.1) Phosphorus Level 2.0 mg/dL (2.6-4.7) 3.7 mg/dL (2.6-4.7) Magnesium Level 2.2 mg/dL (1.8-2.4) 1.7 mg/dL (1.8-2.4) Albumin 2.3 g/dL (3.4-5.0) 2.3 g/dL (3.4-5.0) Vancomycin Level Trough 39.2 mcg/mL (10.0-20.0) Vancomycin Last Dose Date 06/09/17 Vancomycin Last Dose Time 2200 Laboratory Tests Test 06/10/17 07:34 Sodium Level 147 mmol/L (136-145) Potassium Level 4.1 mmol/L (3.5-5.1) Chloride Level 112 mmol/L (98-107) Carbon Dioxide Level 24 mmol/L (21-32) Anion Gap 11 (6-14) Blood Urea Nitrogen 44 mg/dL (7-20) Creatinine 1.1 mg/dL (0.6-1.0) Estimated GFR (Cockcroft-Gault) 64.4 Glucose Level 82 mg/dL (70-99) Calcium Level 8.8 mg/dL (8.5-10.1) Phosphorus Level 3.7 mg/dL (2.6-4.7) Magnesium Level 1.7 mg/dL (1.8-2.4) Albumin 2.3 g/dL (3.4-5.0) Vancomycin Level Trough 39.2 mcg/mL (10.0-20.0) Vancomycin Last Dose Date 06/09/17 Vancomycin Last Dose Time 2200 Images Images X-ray examination showed Charcot changes and periosteal reaction at the distal fibula suspicious for osteomyelitis Assessment/Plan Assessment/Plan Stage IV pressure ulcer to the right lateral malleolus complicated by osteomyelitis (C-M III Bs) While the patient appears to recognize that at the very least a surgical debridement needs to occur for any opportunity for healing, she adamantly opposes definitive treatment with BKA. This would continue to be my first recommendation in this nonambulatory patient and a significant amount of time was spent conveying this to the patient. She is, however, anticipating some type of surgical debridement in the near future. Surgical debridement followed by an acellular bovine collagen product placement and negative pressure wound therapy may be an option in closing space after surgical debridement in motivated, suitable patients. I spoke at length regarding the need to avoid all pressure to the lateral aspect of the ankle. The patient understands that this is her normal resting position at this time and that this behavior must change. Whether the patient is capable and motivated to follow postoperative care instructions is problematic. In the meantime, we will pack the wound with prolliea cell AG. Patient should be an anti-rotation boot at all times. Antibiotic therapy per ID. MATY MIKE DO Jun 10, 2017 14:53
[2017-06-10 15:00] VITALS: BP 116/71
--- NOTE | 2017-06-10 15:45 | PDOC ---
ORTHO PROGRESS NOTES Subjective Patient seen at bedside. Not very talkative, seems depressed. Family member joined and both patient and family member (damien) are under the impression that Dr. Sosa planned to do a debridement. They are wondering when this going to happen but seemed confused when I discussed the recommendations. I spoke with Dr. Sosa and confirmed that debridement is not recommended, treatment options include IV antibiotics and waiting to see if there is an treatment versus amputation. Patient denies pain. When I went into the room, her leg was externally rotated and there was pressure on the wound. Vitals Vital Signs Date Time Temp Pulse Resp B/P (MAP) Pulse Ox O2 Delivery O2 Flow Rate FiO2 06/10/17 15:00 97.6 86 20 116/71 (86) 99 Room Air 97.6 Labs Laboratory Tests Test 06/09/17 06:15 06/10/17 07:34 Sodium Level 145 mmol/L (136-145) 147 mmol/L (136-145) Potassium Level 3.8 mmol/L (3.5-5.1) 4.1 mmol/L (3.5-5.1) Chloride Level 110 mmol/L (98-107) 112 mmol/L (98-107) Carbon Dioxide Level 21 mmol/L (21-32) 24 mmol/L (21-32) Anion Gap 14 (6-14) 11 (6-14) Blood Urea Nitrogen 51 mg/dL (7-20) 44 mg/dL (7-20) Creatinine 1.1 mg/dL (0.6-1.0) 1.1 mg/dL (0.6-1.0) Estimated GFR (Cockcroft-Gault) 64.4 64.4 Glucose Level 86 mg/dL (70-99) 82 mg/dL (70-99) Calcium Level 9.9 mg/dL (8.5-10.1) 8.8 mg/dL (8.5-10.1) Phosphorus Level 2.0 mg/dL (2.6-4.7) 3.7 mg/dL (2.6-4.7) Magnesium Level 2.2 mg/dL (1.8-2.4) 1.7 mg/dL (1.8-2.4) Albumin 2.3 g/dL (3.4-5.0) 2.3 g/dL (3.4-5.0) Vancomycin Level Trough 39.2 mcg/mL (10.0-20.0) Vancomycin Last Dose Date 06/09/17 Vancomycin Last Dose Time 2199 Laboratory Tests Test 06/10/17 07:34 Sodium Level 147 mmol/L (136-145) Potassium Level 4.1 mmol/L (3.5-5.1) Chloride Level 112 mmol/L (98-107) Carbon Dioxide Level 24 mmol/L (21-32) Anion Gap 11 (6-14) Blood Urea Nitrogen 44 mg/dL (7-20) Creatinine 1.1 mg/dL (0.6-1.0) Estimated GFR (Cockcroft-Gault) 64.4 Glucose Level 82 mg/dL (70-99) Calcium Level 8.8 mg/dL (8.5-10.1) Phosphorus Level 3.7 mg/dL (2.6-4.7) Magnesium Level 1.7 mg/dL (1.8-2.4) Albumin 2.3 g/dL (3.4-5.0) Vancomycin Level Trough 39.2 mcg/mL (10.0-20.0) Vancomycin Last Dose Date 06/09/17 Vancomycin Last Dose Time 0 Notes Patient awake and alert. depressed mood. Breathing nonlabored. on inspection of the RLE, skin is dry. wound noted over the lateral malleolus with purulent drainage. mild to moderate edema. She is morbidly obese. She reports that sensation is intact. PPP. ROM minimal and limited. Problems: (1) Osteomyelitis Assessment and Plan Patient is not following instructions for strict no pressure to wound area Talked with patient and family member at length about Dr. Sosa's recommendations. Treatment options include starting with an attempt to treat with IV antibiotics for a period of weeks and see if there is improvement vs an amputation. Dr. Sosa does not feel that surgical approach will provide any benefit. Problem Qualifiers (1) Osteomyelitis: Osteomyelitis type: unspecified type Osteomyelitis location: fibula Laterality: right Qualified Codes: M86.9 - Osteomyelitis, unspecified ALFRED AMANDA TE[employer]ER [facility] Jun 10, 2017 15:45
[2017-06-10 19:00] VITALS: BP 129/78
[2017-06-10] MEDS: NYSTATIN TOPICAL POWDER 15GM BOTTLE. TP SCH (22:29)
[2017-06-10 23:00] VITALS: BP 117/83
[2017-06-11] MEDS: PIPERACILLIN/TAZOBACTAM 3.375 GM in IV NORMAL SALINE 50ML 50 ML IV SCH ×4 (00:35→17:20)
[2017-06-11] MEDS: ONDANSETRON PF 4 MG/2 ML VIAL. IV PRN ×2 (05:18→15:07)
[2017-06-11] MEDS ORDERED: VANCOMYCIN RANDOM LEVEL. MC ONE (06:00)
[2017-06-11] MEDS: HYDROcodone/APAP 7.5/325MG 1 TAB TABLET PO PRN ×2 (06:31→20:26)
[2017-06-11 06:36] LABS: ALBUMIN 2.3 g/dL (3.4-5.0); CALCIUM 9.1 mg/dL (8.5-10.1); CREATININE 1.2 mg/dL (0.6-1.0); GFR 58.3; PHOSPHORUS 3.1 mg/dL (2.6-4.7); POTASSIUM 4.2 mmol/L (3.5-5.1)
[2017-06-11 07:00] VITALS: BP 124/67
[2017-06-11] MEDS: POTASSIUM CHLORIDE 30 MEQ in IV 1/2 NORMAL SALINE 1,000 ML IV SCH ×2 (08:10→21:51)
[2017-06-11] MEDS: LIDOCAINE (700MG/PATCH) PATCH. TD SCH ×2 (08:18→10:23)
[2017-06-11] MEDS: NYSTATIN TOPICAL POWDER 15GM BOTTLE. TP SCH ×2 (08:18→21:00)
[2017-06-11] MEDS: DOCUSATE SODIUM 100 MG CAPSULE. PO SCH (08:19)
[2017-06-11] MEDS: SERTRALINE 25 MG TABLET. PO SCH (08:19)
[2017-06-11] MEDS: POTASSIUM CHLORIDE 20 MEQ/15 ML ORAL LIQUID. PEG SCH (08:52)
--- NOTE | 2017-06-11 09:56 | PDOC ---
Renal-Progress Notes Subjective Notes Notes NONE History of Present Illness Hx of present illness NO CHANGE Vitals Vitals Vital Signs Date Time Temp Pulse Resp B/P (MAP) Pulse Ox O2 Delivery O2 Flow Rate FiO2 06/11/17 08:10 Room Air 06/11/17 07:31 100 06/11/17 06:31 20 06/10/17 23:00 97.6 83 117/83 (94) 97.6 Weight Weight [ ] I.O. Intake and Output Intake and Output 06/11/17 07:00 Intake Total 1785 ml Output Total 2100 ml Balance -315 ml Intake Oral 720 ml IV Total 1065 ml Output Urine Total 2100 ml Labs Labs Laboratory Tests Test 06/11/17 05:50 Sodium Level 145 mmol/L (136-145) Potassium Level 4.2 mmol/L (3.5-5.1) Chloride Level 109 mmol/L (98-107) Carbon Dioxide Level 21 mmol/L (21-32) Anion Gap 15 (6-14) Blood Urea Nitrogen 34 mg/dL (7-20) Creatinine 1.2 mg/dL (0.6-1.0) Estimated GFR (Cockcroft-Gault) 58.3 Glucose Level 95 mg/dL (70-99) Calcium Level 9.1 mg/dL (8.5-10.1) Phosphorus Level 3.1 mg/dL (2.6-4.7) Magnesium Level 1.7 mg/dL (1.8-2.4) Albumin 2.3 g/dL (3.4-5.0) Micro Micro Microbiology 06/05/17 Urine Culture - Final, Complete 06/05/17 Urine Culture Result 1 (ROSANNA) - Final, Complete 06/07/17 Gram Stain - Final, Complete Review of Systems Constitutional: yes: alert, oriented Ears/Nose/Throat: Yes: no symptom reported Pulmonary: Yes no symptom reported Gastrointestional: Yes: no symptom reported Musculoskeletal: Yes: no symptom reported Skin: Yes no symptom reported Psychiatric/Neurological: Yes: no symptom reported Physical Exam General Appearance: no apparent distress Skin: warm Respiratory: decreased breath sounds Heart: S1S2 Abdomen: soft, bowel sounds present Extremities: pulses present Neurology: oriented Musculoskeletal: Osteoarthritis Assessment Assessment IMP MORBID OBESITY DEHYDRATION-RESOLVED PHILIP-ESSENTIALLY RESOLVED LOW MAG-CORRECTED RIGHT ANKLE WOUND PLAN REPLACE MAG ON HYPOTONIC SALINE WILL SIGN OFF PLEASE CALL IF NEEDED MICHAEL HAMMONDS MD Jun 11, 2017 09:56
[2017-06-11] MEDS ORDERED: MAGNESIUM SULFATE 2GM 50 ML IV ONE (10:00)
[2017-06-11] MEDS: CALCIUM CARBONATE 500 MG TAB.CHEW PO PRN ×3 (10:24→19:39)
[2017-06-11] MEDS: PANTOPRAZOLE 40 MG TABLET.DR. PO SCH (10:24)
[2017-06-11 11:00] VITALS: BP 129/76
[2017-06-11] MEDS ORDERED: 0.9 % SODIUM CHLORIDE 10 ML DISP.SYRIN. IV PRN ×3 (11:00)
--- NOTE | 2017-06-11 11:04 | PDOC ---
Infectious Disease Note Subjective Subjective Feeling better today, Mild nausea, ? reflux, started on Tums & Protonix ROS ROS GEN: Denies fevers, chills, sweats CV: Denies chest pain RESP: Denies shortness of air, cough GI: Denies diarrhea Vital Sign Vital Signs Vital Signs Date Time Temp Pulse Resp B/P (MAP) Pulse Ox O2 Delivery O2 Flow Rate FiO2 06/11/17 08:10 Room Air 06/11/17 07:31 100 06/11/17 06:31 20 06/10/17 23:00 97.6 83 117/83 (94) 97.6 Physical Exam PHYSICAL EXAM GENERAL: Propped up in bed, ankle elevated off bed with pillows LUNGS: Clear to auscultation. HEART: Normal S1, S2. ABDOMEN: Obese, bowel sounds are present, soft, nontender. : Mcgill. EXTREMITIES: No gross edema or cyanosis. SKIN: Without rash. Multiple wounds, including left lateral pressure wound NEUROLOGIC: Alert and oriented. Peripheral IV: ok Labs Lab Laboratory Tests Test 06/11/17 05:50 Sodium Level 145 mmol/L (136-145) Potassium Level 4.2 mmol/L (3.5-5.1) Chloride Level 109 mmol/L (98-107) Carbon Dioxide Level 21 mmol/L (21-32) Anion Gap 15 (6-14) Blood Urea Nitrogen 34 mg/dL (7-20) Creatinine 1.2 mg/dL (0.6-1.0) Estimated GFR (Cockcroft-Gault) 58.3 Glucose Level 95 mg/dL (70-99) Calcium Level 9.1 mg/dL (8.5-10.1) Phosphorus Level 3.1 mg/dL (2.6-4.7) Magnesium Level 1.7 mg/dL (1.8-2.4) Albumin 2.3 g/dL (3.4-5.0) Micro ANAEROBIC-AEROBIC CULTURE Preliminary Preliminary report ANAEROBIC RES 1 Preliminary Comment No anaerobes recovered in 48 hours. AEROBIC CULT Preliminary Preliminary report AEROBIC RES 1 Preliminary Proteus mirabilis Moderate growth AEROBIC RES 2 Preliminary Staphylococcus aureus Heavy growth Antibiotic RSLT#1 RSLT#2 Amoxicillin/Clavulanic Acid S Ampicillin S Cefepime S Ceftriaxone S Cefuroxime S Ciprofloxacin S Ertapenem S Gentamicin S Levofloxacin S Piperacillin S Tetracycline R Tobramycin S Trimethoprim/Sulfa S Objective Assessment 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 Proteus and staph aureus -sed rate 118 Leukocytosis- stable Super morbid obesity w/ BMI 65, bedbound PHILIP, improved Plan Plan of Care continue Zosyn vanc trough 39.2. Last dose 06/10. Await sensitivities Monitor WBC, renal function and temp Given patient's immobility and inability to off load, the wound not likely to heal. Patient declined BKA recommendation, wants trial of antibiotics D/w Dr. Villarreal await wound care eval Await PICC placement. will need a minimum of 6 weeks of antibiotic therapy Attending Co-Sign The patient was seen and interviewed as well as examined at the bedside. The chart was reviewed. The case was discussed. Agree with the plan of care. d/w pt, father and EZEKIEL Tipton APRN Jun 11, 2017 11:04 KELSEY RIZZO MD Jun 11, 2017 14:04
--- NOTE | 2017-06-11 11:13 | PDOC ---
PROGRESS NOTES Chief Complaint Chief Complaint acute uremic renal failure azotemia ASSESSMENT AND PLAN; 1. PHILIP/ on poss CKD: improving, with uremia better. encourage PO fluids 2. CHF: by hx; echo with normal EF (50%), grade 1 DD. 3. Hypernatremia: borderline. 4. Hypokalemia, hypomagnesemia: recurrent. replete Mg IV 5. Knee pain: probable OA. appreciate Dr Gee's input. treat medically. lidocaine patches. 6. R ankle osteo: recommendation for BKA, pt reluctant. d/w Dr.s Chavez and Ian: aggressive debridement not possible given location, underlying bone infection preventing skin graft, as well as Charcot ankle that will be always unstable and painful. d/w wound care service as well: not a candidate for wound vac with undermined skin. trial of conservative management with prolonged IV Abx. doubt it will be successful. She will have to understand (with time) that she more than likely will lose her foot. PICC line placement 7. Decub ulcers: relatively minor. wound care following 8. FTT: OT/PT eval; case management for placement 9. morbid obesity, BMI 65, w/ poor habitus and deconditioning and very limited mobility (has not been OOB for 5 yrs) 10. Depression: new dx. started ativan, zoloft 11. Dispo: to SNF for Abx and medical rx History of Present Illness History of Present Illness eating a little better. no vomiting, heartburn controlled Vitals Vitals Vital Signs Date Time Temp Pulse Resp B/P (MAP) Pulse Ox O2 Delivery O2 Flow Rate FiO2 06/11/17 08:10 Room Air 06/11/17 07:31 100 06/11/17 06:31 20 06/10/17 23:00 97.6 83 117/83 (94) 97.6 Physical Exam General: Alert, Oriented X3, Cooperative (poorly cooperative with efforts to examine her wound. ), No acute distress Heart: Regular rate Lungs: Clear Abdomen: Normal bowel sounds, Soft, No tenderness Extremities: No cyanosis, No edema, Other (B knee pain, chronic severe) Skin: Other (2 cm ulcer to the right lateral malleolus. This probes to bone. Significant undermining is present.) Labs LABS Laboratory Tests Test 06/11/17 05:50 Sodium Level 145 mmol/L (136-145) Potassium Level 4.2 mmol/L (3.5-5.1) Chloride Level 109 mmol/L (98-107) Carbon Dioxide Level 21 mmol/L (21-32) Anion Gap 15 (6-14) Blood Urea Nitrogen 34 mg/dL (7-20) Creatinine 1.2 mg/dL (0.6-1.0) Estimated GFR (Cockcroft-Gault) 58.3 Glucose Level 95 mg/dL (70-99) Calcium Level 9.1 mg/dL (8.5-10.1) Phosphorus Level 3.1 mg/dL (2.6-4.7) Magnesium Level 1.7 mg/dL (1.8-2.4) Albumin 2.3 g/dL (3.4-5.0) COLLINS MENDOZA MD Jun 11, 2017 11:13
[2017-06-11 15:00] VITALS: BP 116/70
[2017-06-11 19:30] VITALS: BP 141/84
[2017-06-11 23:59] VITALS: BP 112/73
[2017-06-12] MEDS: PIPERACILLIN/TAZOBACTAM 3.375 GM in IV NORMAL SALINE 50ML 50 ML IV SCH ×5 (00:23→23:50)
[2017-06-12 03:59] VITALS: BP 137/77
[2017-06-12 07:03] LABS: ALBUMIN 2.1 g/dL (3.4-5.0); CALCIUM 8.9 mg/dL (8.5-10.1); CREATININE 1.1 mg/dL (0.6-1.0); GFR 64.4; PHOSPHORUS 2.4 mg/dL (2.6-4.7); POTASSIUM 3.9 mmol/L (3.5-5.1)
[2017-06-12 07:25] VITALS: BP 134/89
[2017-06-12] MEDS: DOCUSATE SODIUM 100 MG CAPSULE. PO SCH (07:32)
[2017-06-12] MEDS: ONDANSETRON PF 4 MG/2 ML VIAL. IV PRN ×2 (07:33→18:05)
[2017-06-12] MEDS: LIDOCAINE (700MG/PATCH) PATCH. TD SCH (07:33)
[2017-06-12] MEDS: HYDROcodone/APAP 7.5/325MG 1 TAB TABLET PO PRN ×2 (07:34→18:06)
[2017-06-12] MEDS: POTASSIUM CHLORIDE 20 MEQ/15 ML ORAL LIQUID. PEG SCH (07:36)
[2017-06-12] MEDS: SERTRALINE 25 MG TABLET. PO SCH (08:20)
[2017-06-12] MEDS: PANTOPRAZOLE 40 MG TABLET.DR. PO SCH (08:20)
[2017-06-12] MEDS: NYSTATIN TOPICAL POWDER 15GM BOTTLE. TP SCH ×2 (08:22→20:59)
--- NOTE | 2017-06-12 09:48 | PDOC ---
Infectious Disease Note Subjective Subjective Mild nausea, ? reflux, on Tums & Protonix ROS ROS GEN: Denies fevers, chills, sweats CV: Denies chest pain RESP: Denies shortness of air, cough GI: Denies diarrhea Vital Sign Vital Signs Vital Signs Date Time Temp Pulse Resp B/P (MAP) Pulse Ox O2 Delivery O2 Flow Rate FiO2 06/12/17 08:34 100 Room Air 06/12/17 07:34 16 06/12/17 07:25 98.3 76 134/89 (104) 98.3 Physical Exam PHYSICAL EXAM GENERAL: Propped up in bed, ankle off pillow HEART: Normal S1, S2. ABDOMEN: Obese, bowel sounds are present, soft, nontender. : Mcgill. EXTREMITIES: No gross edema or cyanosis. SKIN: Without rash. Multiple wounds, including left lateral pressure wound NEUROLOGIC: Alert and oriented. LUE-PICC. (06/11). clean Labs Lab Laboratory Tests Test 06/12/17 06:25 Sodium Level 143 mmol/L (136-145) Potassium Level 3.9 mmol/L (3.5-5.1) Chloride Level 107 mmol/L (98-107) Carbon Dioxide Level 24 mmol/L (21-32) Anion Gap 12 (6-14) Blood Urea Nitrogen 31 mg/dL (7-20) Creatinine 1.1 mg/dL (0.6-1.0) Estimated GFR (Cockcroft-Gault) 64.4 Glucose Level 96 mg/dL (70-99) Calcium Level 8.9 mg/dL (8.5-10.1) Phosphorus Level 2.4 mg/dL (2.6-4.7) Albumin 2.1 g/dL (3.4-5.0) Micro ANAEROBIC-AEROBIC CULTURE Final Final report ANAEROBIC RES 1 Final No anaerobic growth in 72 hours. 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 Proteus and MSSA -sed rate 118 Leukocytosis- stable Super morbid obesity w/ BMI 65, bedbound PHILIP, improved Plan Plan of Care Zosyn, will modify soon vanc trough 39.2. Last dose 06/10. Monitor WBC, renal function and temp Given patient's immobility and inability to off load, the wound not likely to heal. Patient declined BKA recommendation, wants trial of antibiotics Will need a minimum of 6 weeks of antibiotic therapy Attending Co-Sign The patient was seen and interviewed as well as examined at the bedside. The chart was reviewed. The case was discussed. Agree with the plan of care. EZEKIEL HERMOSILLO APRN Jun 12, 2017 09:48 KELSEY RIZZO MD Jun 12, 2017 12:29
[2017-06-12 11:00] VITALS: BP 140/90
[2017-06-12] MEDS: POTASSIUM CHLORIDE 30 MEQ in IV 1/2 NORMAL SALINE 1,000 ML IV SCH (12:33)
--- NOTE | 2017-06-12 13:24 | PDOC ---
PROGRESS NOTES Chief Complaint Chief Complaint Acute Kidney Injury Azotemia History of Present Illness History of Present Illness Pt resting in bed NAD No vomiting No complaints of heartburn Vitals Vitals Vital Signs Date Time Temp Pulse Resp B/P (MAP) Pulse Ox O2 Delivery O2 Flow Rate FiO2 06/12/17 11:00 98.2 76 20 140/90 (107) 100 Room Air 98.2 Physical Exam General: Alert, Oriented X3, Cooperative, No acute distress Heart: Regular rate, No murmurs Lungs: Clear, Other (No RRW) Abdomen: Normal bowel sounds, Soft, No tenderness Extremities: No cyanosis, No edema, Other (B knee pain, chronic severe) Skin: No breakdown, Other (Ichthyosis of right LE) Labs LABS Laboratory Tests Test 06/12/17 06:25 Sodium Level 143 mmol/L (136-145) Potassium Level 3.9 mmol/L (3.5-5.1) Chloride Level 107 mmol/L (98-107) Carbon Dioxide Level 24 mmol/L (21-32) Anion Gap 12 (6-14) Blood Urea Nitrogen 31 mg/dL (7-20) Creatinine 1.1 mg/dL (0.6-1.0) Estimated GFR (Cockcroft-Gault) 64.4 Glucose Level 96 mg/dL (70-99) Calcium Level 8.9 mg/dL (8.5-10.1) Phosphorus Level 2.4 mg/dL (2.6-4.7) Albumin 2.1 g/dL (3.4-5.0) Review of Systems Review of Systems Weakness Assessment and Plan Assessmemt and Plan Problems Medical Problems: (1) Acute renal failure Status: Acute (2) Chronic renal insufficiency Status: Acute (3) Dehydration Status: Acute (4) Lower extremity pain Status: Acute CC: Acute Kidney Injury Azotemia Plan: Check creatinine Continue Zosyn PT/OT Continue DVT prophylaxis Continue home meds Problems: Comment Review of Relevant I have reviewed the following items negra (where applicable) has been applied. Labs Laboratory Tests Test 06/11/17 05:50 06/12/17 06:25 Sodium Level 145 mmol/L (136-145) 143 mmol/L (136-145) Potassium Level 4.2 mmol/L (3.5-5.1) 3.9 mmol/L (3.5-5.1) Chloride Level 109 mmol/L (98-107) 107 mmol/L (98-107) Carbon Dioxide Level 21 mmol/L (21-32) 24 mmol/L (21-32) Anion Gap 15 (6-14) 12 (6-14) Blood Urea Nitrogen 34 mg/dL (7-20) 31 mg/dL (7-20) Creatinine 1.2 mg/dL (0.6-1.0) 1.1 mg/dL (0.6-1.0) Estimated GFR (Cockcroft-Gault) 58.3 64.4 Glucose Level 95 mg/dL (70-99) 96 mg/dL (70-99) Calcium Level 9.1 mg/dL (8.5-10.1) 8.9 mg/dL (8.5-10.1) Phosphorus Level 3.1 mg/dL (2.6-4.7) 2.4 mg/dL (2.6-4.7) Magnesium Level 1.7 mg/dL (1.8-2.4) Albumin 2.3 g/dL (3.4-5.0) 2.1 g/dL (3.4-5.0) Laboratory Tests Test 06/12/17 06:25 Sodium Level 143 mmol/L (136-145) Potassium Level 3.9 mmol/L (3.5-5.1) Chloride Level 107 mmol/L (98-107) Carbon Dioxide Level 24 mmol/L (21-32) Anion Gap 12 (6-14) Blood Urea Nitrogen 31 mg/dL (7-20) Creatinine 1.1 mg/dL (0.6-1.0) Estimated GFR (Cockcroft-Gault) 64.4 Glucose Level 96 mg/dL (70-99) Calcium Level 8.9 mg/dL (8.5-10.1) Phosphorus Level 2.4 mg/dL (2.6-4.7) Albumin 2.1 g/dL (3.4-5.0) Microbiology 06/05/17 Urine Culture - Final, Complete 06/05/17 Urine Culture Result 1 (ROSANNA) - Final, Complete 06/07/17 Gram Stain - Final, Complete Medications Current Medications Ondansetron HCl (Zofran) 4 mg 1X ONCE IV Last administered on 06/04/17t 18:59 ; Start 06/04/17 at 18:30; Stop 06/04/17 at 18:31; Status DC Sodium Chloride 1,000 ml @ 1,000 mls/hr 1X ONCE IV Last administered on 18:58; Start 06/04/17 at 18:30; Stop 06/04/17 at 19:29; Status DC Hydromorphone HCl (Dilaudid) 0.5 mg 1X ONCE IV Last administered on 06/04/17 19:00; Start 06/04/17 at 18:30; Stop 06/04/17 at 18:31; Status DC Ondansetron HCl (Zofran) 4 mg PRN Q8HRS PRN IV NAUSEA/VOMITING Last administered on 06/05/17 15:50; Start 06/04/17 at 19:15; Stop 06/05/17 at 19:14 ; Status DC Fentanyl Citrate (Fentanyl 2ml Vial) 50 mcg PRN Q2HR PRN IV PAIN Last administered on 06/05/17 15:51; Start 06/04/17 at 19:15; Stop 06/05/17 at 19:14 ; Status DC Sodium Chloride 1,000 ml @ 150 mls/hr Q6H40M IV Last administered on 14:55; Start 06/04/17 at 19:05; Stop 06/05/17 at 19:04; Status DC Acetaminophen (Tylenol) 650 mg PRN Q4HRS PRN PO FEVER Last administered on 06/05 13:02; Start 06/04/17 at 19:15; Stop 06/05/17 at 19:14; Status DC Magnesium Sulfate/ Dextrose 50 ml @ 25 mls/hr PRN DAILY PRN IV for Mag < 1.7 on am labs; Start 06/05/17 at 09:30; Stop 06/08/17 at 11:59; Status DC Lorazepam (Ativan) 0.5 mg PRN Q8HRS PRN PO ANXIETY / AGITATION Last administered on 06/09/17 07:31; Start 06/05/17 at 10:45 Sertraline HCl (Zoloft) 25 mg DAILY PO Last administered on 06/12/17 08:20; Start 06/05/17 at 11:30 Acetaminophen/ Hydrocodone Bitart (Lortab 7.5/325) 1 tab PRN Q4HRS PRN PO PAIN ; Start 06/05/17 at 19:30 Acetaminophen/ Hydrocodone Bitart (Lortab 7.5/325) 2 tab PRN Q4HRS PRN PO PAIN Last administered on 06/12/17 07:34; Start 06/05/17 at 19:30 Ondansetron HCl (Zofran) 4 mg PRN Q4HRS PRN IV NAUSEA/VOMITING Last administered on 06/06/17 09:27; Start 06/06/17 at 03:15; Stop 06/07/17 at 03:14 ; Status DC Potassium Chloride (Klor-Con) 40 meq 1X ONCE PO Last administered on 09:28; Start 06/06/17 at 09:15; Stop 06/06/17 at 09:16; Status DC Potassium Chloride (Klor-Con) 40 meq 1X ONCE PO Last administered on 12:51; Start 06/06/17 at 12:00; Stop 06/06/17 at 12:01; Status DC Sodium Chloride 1,000 ml @ 150 mls/hr Q6H40M IV ; Start 06/06/17 at 13:15; Stop 06/06/17 at 13:18; Status DC Potassium Chloride (Klor-Con) 20 meq [id number] PO Last administered on 09:11; Start 06/07/17 at 08:00; Stop 06/08/17 at 09:47; Status DC Lidocaine (Lidoderm) 1 patch DAILY TD Last administered on 06/11/17 08:18; Start 06/07/17 at 09:00; Stop 06/11/17 at 09:06; Status DC Sodium Chloride 1,000 ml @ 150 mls/hr Q6H40M PRN IV . Last administered on 06/07 20:21; Start 06/06/17 at 13:30; Stop 06/07/17 at 21:05; Status DC Sodium Chloride 1,000 ml @ 100 mls/hr Q10H IV Last administered on 06/08/17 05:37; Start 06/07/17 at 21:30; Stop 06/08/17 at 11:59; Status DC Diphenhydramine HCl (Benadryl) 25 mg PRN Q6HRS PRN PO ITCHING; Start 06/07/17 at 21:15 Potassium Citrate (Urocit-K) 40 meq BIDACBL PO ; Start 06/08/17 at 08:00; Stop 06/08/17 at 09:47; Status DC Potassium Chloride (KCl Oral Soln) 40 meq BIDACBL PEG Last administered on 06/08 18:24; Start 06/08/17 at 10:00; Stop 06/09/17 at 08:57; Status DC Magnesium Sulfate/ Dextrose 100 ml @ 25 mls/hr 1X ONCE IV Last administered on 06/08/17 13:22; Start 06/08/17 at 12:30; Stop 06/08/17 at 16:29; Status DC Potassium Chloride 30 meq/ Sodium Chloride 1,015 ml @ 75 mls/hr [id number] IV Last administered on 06/12/17 12:33; Start 06/08/17 at 12:30 Magnesium Sulfate/ Dextrose 50 ml @ 25 mls/hr 1X ONCE IV ; Start 06/08/17 at 12 :15; Stop 06/08/17 at 14:14; Status Cancel Vancomycin HCl (Vanco Per Pharmacy) 1 each PRN DAILY PRN MC SEE COMMENTS Last administered on 06/10/17 08:35; Start 06/08/17 at 16:00; Stop 06/10/17 at 10:43 ; Status DC Piperacillin Sod/ Tazobactam Sod 3.375 gm/Sodium Chloride 50 ml @ 100 mls/hr Q6HRS IV Last administered on 06/12/17 12:29; Start 06/08/17 at 16:30 Vancomycin HCl 2 gm/Sodium Chloride 500 ml @ 250 mls/hr 1X ONCE IV Last administered on 06/08/17 19:29; Start 06/08/17 at 16:30; Stop 06/08/17 at 18:29 ; Status DC Vancomycin HCl 2 gm/Sodium Chloride 500 ml @ 250 mls/hr Q12H IV Last administered on 06/09/17 22:31; Start 06/09/17 at 07:00; Stop 06/10/17 at 08:37 ; Status DC Vancomycin HCl 1 each 1X ONCE MC Last administered on 06/10/17 06:30; Start 06/10/17 at 06:30; Stop 06/10/17 at 06:31; Status DC Ondansetron HCl (Zofran) 4 mg PRN Q6HRS PRN IV NAUSEA/VOMITING Last administered on 06/12/17 07:33; Start 06/08/17 at 23:00 Ondansetron HCl (Zofran) 4 mg 1X ONCE IV Last administered on 06/09/17 03:49 ; Start 06/09/17 at 04:00; Stop 06/09/17 at 04:01; Status DC Potassium Chloride (KCl Oral Soln) 40 meq DAILY PEG ; Start 06/09/17 at 09:00 Polyethylene Glycol (miraLAX PACKET) 17 gm PRN DAILY PRN PO CONSTIPATION; Start 06/09/17 at 09:00 Docusate Sodium (Colace) 100 mg DAILY PO Last administered on 06/11/17 08:19; Start 06/09/17 at 09:00 Potassium Phosphate 10 mmol/ Sodium Chloride 103.3333 ml @ 51.667 m... Q2H IV Last administered on 06/10/17 02:16; Start 06/09/17 at 16:00; Stop 06/09/17 at 19:59; Status DC Vancomycin HCl 1 each 1X ONCE MC ; Start 06/11/17 at 06:00; Stop 06/11/17 at 06 :01; Status Cancel Magnesium Sulfate/ Dextrose 50 ml @ 25 mls/hr 1X ONCE IV Last administered on 06/10/17 12:50; Start 06/10/17 at 11:00; Stop 06/10/17 at 12:59; Status DC Magnesium Sulfate/ Dextrose 50 ml @ 25 mls/hr 1X ONCE IV ; Start 06/10/17 at 13 :30; Stop 06/10/17 at 15:29; Status DC Nystatin (Nystop) 1 leobardo BID TP Last administered on 06/12/17 08:22; Start at 21:00 Lidocaine (Lidoderm) 2 patch DAILY TD Last administered on 06/12/17 07:33; Start 06/11/17 at 10:00 Pantoprazole Sodium (Protonix) 40 mg DAILYAC PO Last administered on 06/12/17 08:20; Start 06/11/17 at 11:30 Calcium Carbonate/ Glycine (Tums) 500 mg PRN AFTMEALHC PRN PO INDIGESTION Last administered on 06/11/17 19:39; Start 06/11/17 at 09:15 Magnesium Sulfate/ Dextrose 50 ml @ 25 mls/hr 1X ONCE IV Last administered on 06/11/17 10:24; Start 06/11/17 at 10:00; Stop 06/11/17 at 11:59; Status DC Sodium Chloride (Normal Saline Flush) 10 ml QSHIFT PRN IV AFTER MEDS AND BLOOD DRAWS; Start 06/11/17 at 11:00 Sodium Chloride (Normal Saline Flush) 10 ml PRN Q5MIN PRN IV AFTER MEDS AND BLOOD DRAWS; Start 06/11/17 at 11:00 Sodium Chloride (Normal Saline Flush) 20 ml PRN Q5MIN PRN IV AFTER MEDS AND BLOOD DRAWS; Start 06/11/17 at 11:00 Active Scripts Active Reported [No Home Meds] Vitals/I & O Vital Sign - Last 24 Hours 06/11/17 06/11/17 06/11/17 06/11/17 15:00 19:30 20:00 20:26 Temp 98.2 97.9 98.2 97.9 Pulse 76 76 Resp 18 20 B/P (MAP) 116/70 (85) 141/84 (103) Pulse Ox 100 100 O2 Delivery Room Air Room Air Room Air Room Air 06/11/17 06/11/17 06/12/17 06/12/17 21:26 23:59 03:59 07:25 Temp 98.4 98.2 98.3 98.4 98.2 98.3 Pulse 77 75 76 Resp 20 18 20 18 B/P (MAP) 112/73 (86) 137/77 (97) 134/89 (104) Pulse Ox 99 94 100 O2 Delivery Room Air Room Air Room Air 06/12/17 06/12/17 06/12/17 06/12/17 07:34 08:27 08:34 11:00 Temp 98.2 98.2 Pulse 76 Resp 16 20 B/P (MAP) 140/90 (107) Pulse Ox 100 100 O2 Delivery Room Air Room Air Room Air Room Air Intake and Output 06/11/17 06/11/17 06/12/17 15:00 23:00 07:00 Intake Total 1015 ml 290 ml Output Total 500 ml 450 ml Balance 515 ml -160 ml JENNIFER OBREGON III DO Jun 12, 2017 13:24
[2017-06-12] MEDS: CALCIUM CARBONATE 500 MG TAB.CHEW PO PRN (14:29)
[2017-06-12 15:00] VITALS: BP 145/84
[2017-06-12 19:59] VITALS: BP 121/66
[2017-06-12 23:59] VITALS: BP 153/89
[2017-06-13] MEDS: ONDANSETRON PF 4 MG/2 ML VIAL. IV PRN ×3 (01:30→17:38)
[2017-06-13 03:59] VITALS: BP 143/81
[2017-06-13] MEDS: POTASSIUM CHLORIDE 30 MEQ in IV 1/2 NORMAL SALINE 1,000 ML IV SCH ×2 (05:26→17:34)
[2017-06-13] MEDS: PIPERACILLIN/TAZOBACTAM 3.375 GM in IV NORMAL SALINE 50ML 50 ML IV SCH ×4 (05:27→23:49)
[2017-06-13 07:00] VITALS: BP 137/68
[2017-06-13] MEDS: CALCIUM CARBONATE 500 MG TAB.CHEW PO PRN ×2 (08:32→19:52)
[2017-06-13] MEDS: DOCUSATE SODIUM 100 MG CAPSULE. PO SCH (08:33)
[2017-06-13] MEDS: PANTOPRAZOLE 40 MG TABLET.DR. PO SCH (08:33)
[2017-06-13] MEDS: POTASSIUM CHLORIDE 20 MEQ/15 ML ORAL LIQUID. PEG SCH (08:33)
[2017-06-13] MEDS: SERTRALINE 25 MG TABLET. PO SCH (08:33)
[2017-06-13] MEDS: LIDOCAINE (700MG/PATCH) PATCH. TD SCH (08:33)
[2017-06-13] MEDS: HYDROcodone/APAP 7.5/325MG 1 TAB TABLET PO PRN ×3 (08:34→23:44)
[2017-06-13] MEDS: NYSTATIN TOPICAL POWDER 15GM BOTTLE. TP SCH ×2 (08:38→19:57)
--- NOTE | 2017-06-13 08:41 | PDOC ---
PROGRESS NOTES Subjective Subjective Problems overnight: Only complaint is some concern about the pillow dislodging as she moves around in bed. There is also some confusion apparently about going to the operating room to clean up her wound on her right ankle Objective Vital Signs Vital Signs Date Time Temp Pulse Resp B/P (MAP) Pulse Ox O2 Delivery O2 Flow Rate FiO2 06/13/17 07:00 97.9 69 20 137/68 (91) 100 Room Air 97.9 Physical Exam On examination of her right ankle wound she has about a 2 cm wound with a small area about 5 x 7 mm oval of some devitalized skin over the anterior aspect. After removal of the packing there was some light slough but appears to be reasonable vascularity to the tissue deep. The 2 cm area tunnels deep to the lateral aspect of the distal fibula and bone is exposed Labs Laboratory Tests Test 06/12/17 06:25 Sodium Level 143 mmol/L (136-145) Potassium Level 3.9 mmol/L (3.5-5.1) Chloride Level 107 mmol/L (98-107) Carbon Dioxide Level 24 mmol/L (21-32) Anion Gap 12 (6-14) Blood Urea Nitrogen 31 mg/dL (7-20) Creatinine 1.1 mg/dL (0.6-1.0) Estimated GFR (Cockcroft-Gault) 64.4 Glucose Level 96 mg/dL (70-99) Calcium Level 8.9 mg/dL (8.5-10.1) Phosphorus Level 2.4 mg/dL (2.6-4.7) Albumin 2.1 g/dL (3.4-5.0) Imaging Previous imaging shows neuropathic arthropathy of the foot and similar changes to the distal fibula overall suspicious for osteomyelitis of the distal fibula, particularly since the bone is exposed Assessment Assessment Right ankle wound with distal fibula osteomyelitis Neuropathic arthropathy right ankle and foot Problems: Plan Plan of Care A light debridement of the devitalized small skin area was performed at bedside and the wound was flushed thoroughly with normal saline solution and a wet-to- dry dressing placed I feel that rather than simple packing of the wound that wet-to-dry dressing changes on a daily basis may help debride and keep away any slough to get hopefully good granulation tissue at the wound base if she responds to keeping pressure off the area and antibiotics I discussed again with her today that I do not feel that any intervention in the operating room with deep debridement or attempts at any type of coverage would be recommended. Furthermore if she really does not have the capability to heal this wound with ongoing wound care and antibiotics, she may need amputation particularly given her nonambulatory status for the past 3-4 years. All her questions were answered at this time. SUSAN GAYLE MD Jun 13, 2017 08:41
--- NOTE | 2017-06-13 10:24 | PDOC ---
Infectious Disease Note Subjective Subjective Occasionally gets nauseous and gags trying to cough up phlegm Pain controlled Loose stools Appetite good ROS ROS GEN: Denies fevers, chills, sweats CV: Denies chest pain RESP: Denies shortness of air, cough GI: Denies n/v Vital Sign Vital Signs Vital Signs Date Time Temp Pulse Resp B/P (MAP) Pulse Ox O2 Delivery O2 Flow Rate FiO2 06/13/17 09:34 100 Room Air 06/13/17 07:00 97.9 69 20 137/68 (91) 97.9 Physical Exam PHYSICAL EXAM GENERAL: Propped up in bed, ankle off loading HEART: Normal S1, S2. ABDOMEN: Obese, bowel sounds are present, soft, nontender. : Mcgill. EXTREMITIES: No gross edema or cyanosis. SKIN: Without rash. left lateral ankle pressure wound dressing intact NEUROLOGIC: Alert and oriented. LUE-PICC. (06/11). clean Labs Micro ANAEROBIC-AEROBIC CULTURE Final Final report ANAEROBIC RES 1 Final No anaerobic growth in 72 hours. 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 Proteus and MSSA -s/p bedside debridement, 06/13 -sed rate 118 Leukocytosis- stable Super morbid obesity w/ BMI 65, bedbound PHILIP, improved Plan Plan of Care Zosyn Monitor WBC, renal function and temp Given patient's immobility and inability to off load, the wound not likely to heal. Patient declined BKA recommendation, wants trial of antibiotics Will need a minimum of 6 weeks of antibiotic therapy Attending Co-Sign The patient was seen and interviewed as well as examined at the bedside. The chart was reviewed. The case was discussed. Agree with the plan of care. EZKEIEL HERMOSILLO APRN Jun 13, 2017 10:24 KELSEY RIZZO MD Jun 13, 2017 11:41
[2017-06-13 10:43] VITALS: BP 136/83
--- NOTE | 2017-06-13 13:20 | PDOC ---
PROGRESS NOTES Chief Complaint Chief Complaint Acute Kidney Injury Azotemia History of Present Illness History of Present Illness Pt resting in bed NAD No pain No vomiting No complaints of heartburn Vitals Vitals Vital Signs Date Time Temp Pulse Resp B/P (MAP) Pulse Ox O2 Delivery O2 Flow Rate FiO2 06/13/17 10:43 97.9 81 20 136/83 (100) 100 Room Air 97.9 Physical Exam General: Alert, Oriented X3, Cooperative, No acute distress Heart: Regular rate, No murmurs Lungs: Clear, Other (No RRW) Abdomen: Normal bowel sounds, Soft, No tenderness Extremities: No cyanosis, No edema, Other (B knee pain, chronic severe) Skin: No rashes, Other (Stage IV pressure wound. Proteus MSSA) Review of Systems Review of Systems GEN: Denies fevers, chills, sweats CV: Denies chest pain RESP: Denies shortness of air, cough GI: Denies n/v MSK: Complains of weakness Assessment and Plan Assessmemt and Plan Problems Medical Problems: (1) Acute renal failure Status: Acute (2) Chronic renal insufficiency Status: Acute (3) Dehydration Status: Acute (4) Lower extremity pain Status: Acute Acute Kidney Injury Azotemia Plan: -Continue Zosyn -Continue home meds -I.D. following -Continue to watch white cell counts -Continue PT/OT -Wound care of lateral malleolus Problems: Comment Review of Relevant I have reviewed the following items negra (where applicable) has been applied. Labs Laboratory Tests Test 06/12/17 06:25 Sodium Level 143 mmol/L (136-145) Potassium Level 3.9 mmol/L (3.5-5.1) Chloride Level 107 mmol/L (98-107) Carbon Dioxide Level 24 mmol/L (21-32) Anion Gap 12 (6-14) Blood Urea Nitrogen 31 mg/dL (7-20) Creatinine 1.1 mg/dL (0.6-1.0) Estimated GFR (Cockcroft-Gault) 64.4 Glucose Level 96 mg/dL (70-99) Calcium Level 8.9 mg/dL (8.5-10.1) Phosphorus Level 2.4 mg/dL (2.6-4.7) Albumin 2.1 g/dL (3.4-5.0) Microbiology 06/05/17 Urine Culture - Final, Complete 06/05/17 Urine Culture Result 1 (ROSANNA) - Final, Complete 06/07/17 Gram Stain - Final, Complete Medications Current Medications Ondansetron HCl (Zofran) 4 mg 1X ONCE IV Last administered on 06/04/17 18:59 ; Start 06/04/17 at 18:30; Stop 06/04/17 at 18:31; Status DC Sodium Chloride 1,000 ml @ 1,000 mls/hr 1X ONCE IV Last administered on 18:58; Start 06/04/17 at 18:30; Stop 06/04/17 at 19:29; Status DC Hydromorphone HCl (Dilaudid) 0.5 mg 1X ONCE IV Last administered on 06/04/17 19:00; Start 06/04/17 at 18:30; Stop 06/04/17 at 18:31; Status DC Ondansetron HCl (Zofran) 4 mg PRN Q8HRS PRN IV NAUSEA/VOMITING Last administered on 06/05/17 15:50; Start 06/04/17 at 19:15; Stop 06/05/17 at 19:14 ; Status DC Fentanyl Citrate (Fentanyl 2ml Vial) 50 mcg PRN Q2HR PRN IV PAIN Last administered on 06/05/17 15:51; Start 06/04/17 at 19:15; Stop 06/05/17 at 19:14 ; Status DC Sodium Chloride 1,000 ml @ 150 mls/hr Q6H40M IV Last administered on 14:55; Start 06/04/17 at 19:05; Stop 06/05/17 at 19:04; Status DC Acetaminophen (Tylenol) 650 mg PRN Q4HRS PRN PO FEVER Last administered on 06/05 13:02; Start 06/04/17 at 19:15; Stop 06/05/17 at 19:14; Status DC Magnesium Sulfate/ Dextrose 50 ml @ 25 mls/hr PRN DAILY PRN IV for Mag < 1.7 on am labs; Start 06/05/17 at 09:30; Stop 06/08/17 at 11:59; Status DC Lorazepam (Ativan) 0.5 mg PRN Q8HRS PRN PO ANXIETY / AGITATION Last administered on 06/09/17 07:31; Start 06/05/17 at 10:45 Sertraline HCl (Zoloft) 25 mg DAILY PO Last administered on 06/13/17 08:33; Start 06/05/17 at 11:30 Acetaminophen/ Hydrocodone Bitart (Lortab 7.5/325) 1 tab PRN Q4HRS PRN PO PAIN ; Start 06/05/17 at 19:30 Acetaminophen/ Hydrocodone Bitart (Lortab 7.5/325) 2 tab PRN Q4HRS PRN PO PAIN Last administered on 06/13/17 08:34; Start 06/05/17 at 19:30 Ondansetron HCl (Zofran) 4 mg PRN Q4HRS PRN IV NAUSEA/VOMITING Last administered on 06/06/17 09:27; Start 06/06/17 at 03:15; Stop 06/07/17 at 03:14 ; Status DC Potassium Chloride (Klor-Con) 40 meq 1X ONCE PO Last administered on 09:28; Start 06/06/17 at 09:15; Stop 06/06/17 at 09:16; Status DC Potassium Chloride (Klor-Con) 40 meq 1X ONCE PO Last administered on 12:51; Start 06/06/17 at 12:00; Stop 06/06/17 at 12:01; Status DC Sodium Chloride 1,000 ml @ 150 mls/hr Q6H40M IV ; Start 06/06/17 at 13:15; Stop 06/06/17 at 13:18; Status DC Potassium Chloride (Klor-Con) 20 meq [id number] PO Last administered on 09:11; Start 06/07/17 at 08:00; Stop 06/08/17 at 09:47; Status DC Lidocaine (Lidoderm) 1 patch DAILY TD Last administered on 06/11/17 08:18; Start 06/07/17 at 09:00; Stop 06/11/17 at 09:06; Status DC Sodium Chloride 1,000 ml @ 150 mls/hr Q6H40M PRN IV . Last administered on 06/07 20:21; Start 06/06/17 at 13:30; Stop 06/07/17 at 21:05; Status DC Sodium Chloride 1,000 ml @ 100 mls/hr Q10H IV Last administered on 06/08/17 05:37; Start 06/07/17 at 21:30; Stop 06/08/17 at 11:59; Status DC Diphenhydramine HCl (Benadryl) 25 mg PRN Q6HRS PRN PO ITCHING; Start 06/07/17 at 21:15 Potassium Citrate (Urocit-K) 40 meq BIDACBL PO ; Start 06/08/17 at 08:00; Stop 06/08/17 at 09:47; Status DC Potassium Chloride (KCl Oral Soln) 40 meq BIDACBL PEG Last administered on 06/08 18:24; Start 06/08/17 at 10:00; Stop 06/09/17 at 08:57; Status DC Magnesium Sulfate/ Dextrose 100 ml @ 25 mls/hr 1X ONCE IV Last administered on 06/08/17 13:22; Start 06/08/17 at 12:30; Stop 06/08/17 at 16:29; Status DC Potassium Chloride 30 meq/ Sodium Chloride 1,015 ml @ 75 mls/hr [id number] IV Last administered on 06/13/17 05:26; Start 06/08/17 at 12:30 Magnesium Sulfate/ Dextrose 50 ml @ 25 mls/hr 1X ONCE IV ; Start 06/08/17 at 12 :15; Stop 06/08/17 at 14:14; Status Cancel Vancomycin HCl (Vanco Per Pharmacy) 1 each PRN DAILY PRN MC SEE COMMENTS Last administered on 06/10/17 08:35; Start 06/08/17 at 16:00; Stop 06/10/17 at 10:43 ; Status DC Piperacillin Sod/ Tazobactam Sod 3.375 gm/Sodium Chloride 50 ml @ 100 mls/hr Q6HRS IV Last administered on 06/13/17 05:27; Start 06/08/17 at 16:30 Vancomycin HCl 2 gm/Sodium Chloride 500 ml @ 250 mls/hr 1X ONCE IV Last administered on 06/08/17 19:29; Start 06/08/17 at 16:30; Stop 06/08/17 at 18:29 ; Status DC Vancomycin HCl 2 gm/Sodium Chloride 500 ml @ 250 mls/hr Q12H IV Last administered on 06/09/17 22:31; Start 06/09/17 at 07:00; Stop 06/10/17 at 08:37 ; Status DC Vancomycin HCl 1 each 1X ONCE MC Last administered on 06/10/17 06:30; Start 06/10/17 at 06:30; Stop 06/10/17 at 06:31; Status DC Ondansetron HCl (Zofran) 4 mg PRN Q6HRS PRN IV NAUSEA/VOMITING Last administered on 06/13/17 08:33; Start 06/08/17 at 23:00 Ondansetron HCl (Zofran) 4 mg 1X ONCE IV Last administered on 06/09/17 03:49 ; Start 06/09/17 at 04:00; Stop 06/09/17 at 04:01; Status DC Potassium Chloride (KCl Oral Soln) 40 meq DAILY PEG ; Start 06/09/17 at 09:00 Polyethylene Glycol (miraLAX PACKET) 17 gm PRN DAILY PRN PO CONSTIPATION; Start 06/09/17 at 09:00 Docusate Sodium (Colace) 100 mg DAILY PO Last administered on 06/11/17 08:19; Start 06/09/17 at 09:00 Potassium Phosphate 10 mmol/ Sodium Chloride 103.3333 ml @ 51.667 m... Q2H IV Last administered on 06/10/17 02:16; Start 06/09/17 at 16:00; Stop 06/09/17 at 19:59; Status DC Vancomycin HCl 1 each 1X ONCE MC ; Start 06/11/17 at 06:00; Stop 06/11/17 at 06 :01; Status Cancel Magnesium Sulfate/ Dextrose 50 ml @ 25 mls/hr 1X ONCE IV Last administered on 06/10/17 12:50; Start 06/10/17 at 11:00; Stop 06/10/17 at 12:59; Status DC Magnesium Sulfate/ Dextrose 50 ml @ 25 mls/hr 1X ONCE IV ; Start 06/10/17 at 13 :30; Stop 06/10/17 at 15:29; Status DC Nystatin (Nystop) 1 leobardo BID TP Last administered on 06/13/17 08:38; Start at 21:00 Lidocaine (Lidoderm) 2 patch DAILY TD Last administered on 06/13/17 08:33; Start 06/11/17 at 10:00 Pantoprazole Sodium (Protonix) 40 mg DAILYAC PO Last administered on 06/13/17 08:33; Start 06/11/17 at 11:30 Calcium Carbonate/ Glycine (Tums) 500 mg PRN AFTMEALHC PRN PO INDIGESTION Last administered on 06/13/17 08:32; Start 06/11/17 at 09:15 Magnesium Sulfate/ Dextrose 50 ml @ 25 mls/hr 1X ONCE IV Last administered on 06/11/17 10:24; Start 06/11/17 at 10:00; Stop 06/11/17 at 11:59; Status DC Sodium Chloride (Normal Saline Flush) 10 ml QSHIFT PRN IV AFTER MEDS AND BLOOD DRAWS; Start 06/11/17 at 11:00 Sodium Chloride (Normal Saline Flush) 10 ml PRN Q5MIN PRN IV AFTER MEDS AND BLOOD DRAWS; Start 06/11/17 at 11:00 Sodium Chloride (Normal Saline Flush) 20 ml PRN Q5MIN PRN IV AFTER MEDS AND BLOOD DRAWS; Start 06/11/17 at 11:00 Active Scripts Active Reported [No Home Meds] Vitals/I & O Vital Sign - Last 24 Hours 06/12/17 06/12/17 06/12/17 06/12/17 15:00 18:06 19:59 20:00 Temp 98.1 98.5 98.1 98.5 Pulse 80 79 Resp 18 20 B/P (MAP) 145/84 (104) 121/66 (84) Pulse Ox 100 98 O2 Delivery Room Air Room Air Room Air Room Air 06/12/17 06/13/17 06/13/17 06/13/17 23:59 03:59 07:00 08:10 Temp 97.7 98.2 97.9 97.7 98.2 97.9 Pulse 82 69 69 Resp 18 18 20 B/P (MAP) 153/89 (110) 143/81 (101) 137/68 (91) Pulse Ox 100 100 100 O2 Delivery Room Air Room Air Room Air Room Air 06/13/17 06/13/17 06/13/17 08:34 09:34 10:43 Temp 97.9 97.9 Pulse 81 Resp 20 B/P (MAP) 136/83 (100) Pulse Ox 100 100 100 O2 Delivery Room Air Room Air Room Air Intake and Output 06/12/17 06/12/17 06/13/17 15:00 23:00 07:00 Intake Total 420 ml 900 ml Output Total 650 ml 350 ml Balance 420 ml 250 ml -350 ml JENNIFER OBREGON III DO Jun 13, 2017 13:20
[2017-06-13 15:07] VITALS: BP 134/74
[2017-06-13 19:00] VITALS: BP 129/81
[2017-06-13 23:00] VITALS: BP 141/87
[2017-06-14] MEDS: PIPERACILLIN/TAZOBACTAM 3.375 GM in IV NORMAL SALINE 50ML 50 ML IV SCH (06:09)
[2017-06-14] MEDS: ONDANSETRON PF 4 MG/2 ML VIAL. IV PRN ×2 (06:14→14:26)
[2017-06-14 07:00] VITALS: BP 150/88
[2017-06-14] MEDS: LIDOCAINE (700MG/PATCH) PATCH. TD SCH (07:28)
[2017-06-14] MEDS: PANTOPRAZOLE 40 MG TABLET.DR. PO SCH (07:29)
[2017-06-14] MEDS: SERTRALINE 25 MG TABLET. PO SCH (07:29)
[2017-06-14] MEDS: NYSTATIN TOPICAL POWDER 15GM BOTTLE. TP SCH (07:29)
[2017-06-14] MEDS: CALCIUM CARBONATE 500 MG TAB.CHEW PO PRN (07:29)
[2017-06-14] MEDS: HYDROcodone/APAP 7.5/325MG 1 TAB TABLET PO PRN ×2 (07:29→14:27)
[2017-06-14] MEDS: DOCUSATE SODIUM 100 MG CAPSULE. PO SCH (07:30)
[2017-06-14] MEDS: POTASSIUM CHLORIDE 20 MEQ/15 ML ORAL LIQUID. PEG SCH (07:30)
--- NOTE | 2017-06-14 08:56 | PDOC ---
Infectious Disease Note Subjective Subjective no new complaints, feeling ok ROS ROS GEN: Denies fevers, chills, sweats HEENT: Denies blurred vision, sore throat CV: Denies chest pain RESP: Denies shortness of air, cough GI: Denies n/v/d NEURO: Denies confusion, dizziness MSK: Denies weakness, joint pain/swelling Vital Sign Vital Signs Vital Signs Date Time Temp Pulse Resp B/P (MAP) Pulse Ox O2 Delivery O2 Flow Rate FiO2 06/14/17 07:29 97 Room Air 06/14/17 07:00 97.9 86 20 150/88 (108) 97.9 Physical Exam PHYSICAL EXAM GENERAL: NAD, Alert,, morbid obesity HEENT: PERRL, OC/OP NECK: Supple, no JVD, no LN LUNGS: Clear HEART: S1S2, no gallop, no murmur ABD: Soft, NT, no organomegaly, no rebound EXT: No edema, no cyanosis,, rt ankle wound, still not able to off load 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 Proteus and MSSA -s/p bedside debridement, 06/13 -sed rate 118 Leukocytosis- stable Super morbid obesity w/ BMI 65, bedbound PHILIP, improved Plan Plan of Care Zosyn change to iv rocephine Monitor WBC, renal function and temp Given patient's immobility and inability to off load, the wound not likely to heal. Patient declined BKA recommendation, wants trial of antibiotics Will need a minimum of 6 weeks of antibiotic therapy ok to transfer to LTAC or SNF or home KELSEY RIZZO MD Jun 14, 2017 08:56
[2017-06-14] MEDS ORDERED: LIDO:MAALOX:DONNATAL 1:1:1 15 ML SINGLE DOSE SWSW PRN (10:15)
[2017-06-14] MEDS ORDERED: METOCLOPRAMIDE HCL 10 MG/2 ML VIAL. IV PRN (10:15)
[2017-06-14 11:00] VITALS: BP 140/80
--- NOTE | 2017-06-14 11:22 | RAD ---
Portable chest, 06/14/2017: History: Productive sputum, cough Comparison is made to a study from 05/13/2005. A left PICC is in place extending into the superior vena cava. The heart is at the upper limits of normal in size. The pulmonary vascularity is normal. No pulmonary infiltrates are seen. There is no evidence of pleural fluid. IMPRESSION: 1. The left PICC extends into the superior vena cava. 2. No acute cardiopulmonary abnormality is detected.
[2017-06-14] MEDS ORDERED: ACETYLCYSTEINE 20% ORAL SOLN 600 MG/3 ML SYRINGE. PO SCH (12:00)
--- NOTE | 2017-06-14 13:23 | PDOC3 ---
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 Proteus and MSSA -s/p bedside debridement, 06/13 -sed rate 118 sepsis with osteo Leukocytosis- stable Super morbid obesity w/ BMI 65, bedbound PHILIP, vasomotor ckd 3 hypomagnesemia Problems: Final Diagnosis CONSULTS id ortho Procedures i and d Brief Hospital Course Ms. Nicholson is a 47 old F, morbid obesity, chronic bedbound with bl knee pain, came here for right ankle wound, for which she got i and d for osteomyelitis. She, however, refuse bka. stabl to dc to rehab to cont iv recephin daily x6 weeks, cont local wound care. however,given her obesity, this will likely not heal wo further sx dc time 35min General: Alert, Oriented X3, Cooperative, No acute distress Heart: Regular rate, No murmurs Lungs: Clear, Other (No RRW) Abdomen: Normal bowel sounds, Soft, No tenderness Extremities: No cyanosis, No edema, Other (B knee pain, chronic severe) Skin: No rashes, Other (Stage IV pressure wound. Proteus MSSA). rt ankle lateral aspect has open wound bl hips also has some open wound Problems: Disposition rehab CONDITION AT DISCHARGE: Improved Diet regular No Active Prescriptions or Reported Meds Follow Up id and ortho in2 weeks MELVA VIVEROS MD Jun 14, 2017 13:23
== END 2017-06-14 15:13 | disposition short-term general hospital (02) | DRG 871 ==
LOC: ER 17:48 → 5 SOUTH 19:28
PROVIDERS: ADMIT Internal Medicine Hematology & Oncology; ATTEND Internal Medicine Hematology & Oncology
PROC: 02HV33Z Insertion of Infusion Device into Superior Vena Cava, Percutaneous Approach (ICD-10-PCS; principal; 2017-06-11)
DX: A41.9 Sepsis, unspecified organism (principal); N17.0 Acute kidney failure with tubular necrosis; L89.894 Pressure ulcer of other site, stage 4; E87.1 Hypo-osmolality and hyponatremia; Z68.44 Body mass index [BMI] 60.0-69.9, adult; E87.0 Hyperosmolality and hypernatremia; L97.319 Non-pressure chronic ulcer of right ankle with unspecified severity; M86.9 Osteomyelitis, unspecified; E44.0 Moderate protein-calorie malnutrition; E66.01 Morbid (severe) obesity due to excess calories; E83.42 Hypomagnesemia; G47.30 Sleep apnea, unspecified; F32.9 Major depressive disorder, single episode, unspecified; E87.6 Hypokalemia; I50.9 Heart failure, unspecified; K21.9 Gastro-esophageal reflux disease without esophagitis; M06.9 Rheumatoid arthritis, unspecified; R62.7 Adult failure to thrive; N18.3 Chronic kidney disease, stage 3 (moderate); M17.0 Bilateral primary osteoarthritis of knee; E86.0 Dehydration; B96.4 Proteus (mirabilis) (morganii) as the cause of diseases classified elsewhere; B95.61 Methicillin susceptible Staphylococcus aureus infection as the cause of diseases classified elsewhere; D64.9 Anemia, unspecified; Z91.19 Patient's noncompliance with other medical treatment and regimen; Z90.710 Acquired absence of both cervix and uterus; Z87.440 Personal history of urinary (tract) infections; Z74.01 Bed confinement status; Z89.519 Acquired absence of unspecified leg below knee; Z79.899 Other long term (current) drug therapy; Z79.1 Long term (current) use of non-steroidal anti-inflammatories (NSAID); Z79.82 Long term (current) use of aspirin; Z79.2 Long term (current) use of antibiotics
CPT/HCPCS: 36415; 71010; 73600; 76770; 80048; 80053; 80069; 80076; 80202; 81001; 82575; 82607; 82728; 82746; 83036; 83540; 83550; 83690; 83735; 84156; 84300; 85027; 85045; 85651; 87071; 87075; 87086; 87186; 87205; 93306; 96361; 96374; 96375; J0696; J1170; J2405; J2543; J3010; J3370; J3475; J7030; J7040; J7060; 99285-25

== ENCOUNTER 2018-03-07 11:02 | Inpatient (IN) | payer MEDICARE, MEDICAID ==
[2018-03-07] MEDS: IV NORMAL SALINE 1000ML BAG 1,000 ML IV ×4 (11:05→12:50)
[2018-03-07 11:35] LABS: BASO % 0 % (0-3); EOS % 0 % (0-3); HEMATOCRIT 31.9 % (36.0-47.0); HEMOGLOBIN 10.7 g/dL (12.0-15.5); LYMPH # 0.8 x10^3/uL (1.0-4.8); LYMPH % 2 % (24-48); MEAN CORPUSCULAR HEMOGLOBIN 26 pg (25-35); MEAN CORPUSCULAR HGB CONC 33 g/dL (31-37); MEAN CORPUSCULAR VOLUME 77 fL (79-100); MONO # 1.1 x10^3/uL (0.0-1.1); MONO % 3 % (0-9); NEUT % 95 % (31-73); PLATELET COUNT 475 x10^3/uL (140-400); RED BLOOD COUNT 4.14 x10^6/uL (3.50-5.40); RED CELL DISTRIBUTION WIDTH 15.9 % (11.5-14.5)
[2018-03-07 11:50] LABS: NEG OBC SER NEG; POS OBC SER POS; PREG TEST PT QUAL NEGATIVE (NEG)
[2018-03-07 11:56] LABS: ADD MAN DIFF? YES
[2018-03-07 11:57] LABS: ALBUMIN 2.3 g/dL (3.4-5.0); ALK PHOS 112 U/L (46-116); ALT (SGPT) 7 U/L (14-59); ANION GAP 33 (6-14); AST (SGOT) 8 U/L (15-37); CALCIUM 9.1 mg/dL (8.5-10.1); CHLORIDE 91 mmol/L (98-107); DIRECT BILIRUBIN 0.2 mg/dL (0.0-0.2); GFR 5.7; GLUCOSE 115 mg/dL (70-99); LIPASE 127 U/L (73-393); POTASSIUM 4.1 mmol/L (3.5-5.1); SODIUM 133 mmol/L (136-145); TOTAL BILIRUBIN 0.5 mg/dL (0.2-1.0); TOTAL PROTEIN 8.3 g/dL (6.4-8.2)
[2018-03-07 11:59] LABS: LACTIC ACID 3.2 mmol/L (0.4-2.0)
[2018-03-07] MEDS ORDERED: PIP/TAZO PER PHARMACY MC (12:00)
[2018-03-07] MEDS ORDERED: levOFLOXacin PER PHARMACY. MC (12:00)
[2018-03-07 12:03] LABS: NT-PRO BNP 934 pg/mL (0-124)
[2018-03-07 12:05] LABS: TROPONINI < 0.017 ng/mL (0.000-0.055)
[2018-03-07 12:06] LABS: CARBON DIOXIDE 9 mmol/L (21-32)
[2018-03-07 12:11] LABS: INR 1.5 (0.8-1.1); PARTIAL THROMBOPLASTIN TIME 33 SEC (24-38); PROTHROMBIN TIME PATIENT 17.4 SEC (11.7-14.0)
[2018-03-07] MEDS: PIPERACILLIN/TAZOBACTAM 3.375 GM in IV NORMAL SALINE 50ML 50 ML IV (12:11)
[2018-03-07 12:19] LABS: BILIRUBIN,URINE SMALL (NEG); CLARITY,URINE TURBID; COLOR,URINE AMBER; GLUCOSE,URINE NEGATIVE (NEG); NITRITE,URINE NEGATIVE (NEG); PROTEIN,URINE 100 mg/dL (NEG-TRACE); UROBILINOGEN,URINE 0.2 mg/dL (0.2 mg/dL)
[2018-03-07] MEDS: SODIUM BICARB ADULT 8.4% 50 MEQ/50 ML DISP.SYRIN. IV (12:21)
[2018-03-07 12:26] LABS: BLOOD UREA NITROGEN 284 mg/dL (7-20)
[2018-03-07] MEDS: VANCOMYCIN 2 GM in IV 1/2 NORMAL SALINE 500 ML IV (12:28)
[2018-03-07 12:31] LABS: BACTERIA,URINE MANY /HPF (0-FEW); WBC,URINE TNTC /HPF (0-4)
[2018-03-07 12:37] LABS: CREATINE KINASE 25 U/L (26-192)
[2018-03-07] MEDS ORDERED: HEPARIN for IV BOLUS 10,000 UNIT/10 ML VIAL. (12:47)
[2018-03-07] MEDS ORDERED: LIDOCAINE WITH 8.4% SOD BICARB 3 ML DISP.SYRIN. (12:47)
[2018-03-07 12:55] LABS: % BANDS 2 % (0-9); % LYMPHS 4 % (24-48); % MONOS 2 % (0-10); % SEGS 92 % (35-66); PLT ESTIMATE ADEQUATE (ADEQUATE)
[2018-03-07] MEDS: SUCCINYLCHOLINE 200 MG/10 ML VIAL. IV (13:06)
[2018-03-07] MEDS: ETOMIDATE 20 MG/10 ML VIAL. IV (13:06)
[2018-03-07] MEDS: NOREPINEPHRIN PREMIX 250 ML IV ×2 (13:10→22:58)
[2018-03-07] MEDS: MIDAZOLAM HCL/PF 5 MG/5 ML VIAL. IV ×2 (13:36→14:09)
[2018-03-07] MEDS: LIDOCAINE WITH 8.4% SOD BICARB 3 ML DISP.SYRIN. INJ (14:10)
[2018-03-07] MEDS ORDERED: ONDANSETRON PF 4 MG/2 ML VIAL. IV ×2 (14:15→16:00)
[2018-03-07] MEDS ORDERED: MORPHINE SULFATE 4 MG/ML DISP.SYRIN. IV ×2 (14:15→16:00)
[2018-03-07] MEDS ORDERED: LIDOCAINE WITH 8.4% SOD BICARB 3 ML DISP.SYRIN. INJ (14:15)
[2018-03-07] MEDS: MIDAZOLAM 100MG/100ML PREMIX 100 ML IV ×2 (14:36→22:15)
[2018-03-07 14:43] LABS: BASE EXCESS ABG -12 mmol/L (-3-3); HCO3 ABG 11 mmol/L (21-28); PO2 ABG 457 mmHg (75-108); SAT O2 ABG 99 % (92-99)
[2018-03-07 14:56] LABS: PH ABG 7.39 (7.35-7.45)
[2018-03-07 14:57] LABS: FIO2 ABG 100%; PCO2 ABG 18 mmHg (35-46)
[2018-03-07] MEDS ORDERED: ETOMIDATE 20 MG/10 ML VIAL. IV (15:46)
[2018-03-07] MEDS ORDERED: SUCCINYLCHOLINE 200 MG/10 ML VIAL. (15:47)
[2018-03-07] MEDS: VANCOMYCIN PER PHARMACY MC (15:55)
[2018-03-07] MEDS ORDERED: hydrALAZINE 20 MG/ML VIAL. IVP (16:00)
[2018-03-07] MEDS ORDERED: DOCUSATE SODIUM 100 MG CAPSULE. PO (16:00)
[2018-03-07] MEDS ORDERED: traMADol 50 MG TABLET PO (16:00)
[2018-03-07] MEDS ORDERED: ACETAMINOPHEN 325 MG TABLET. PO (16:00)
[2018-03-07 16:37] LABS: HEMATOCRIT 28.6 % (36.0-47.0); HEMOGLOBIN 10.1 g/dL (12.0-15.5); MEAN CORPUSCULAR HEMOGLOBIN 27 pg (25-35); MEAN CORPUSCULAR HGB CONC 35 g/dL (31-37); MEAN CORPUSCULAR VOLUME 76 fL (79-100); PLATELET COUNT 446 x10^3/uL (140-400); RED BLOOD COUNT 3.78 x10^6/uL (3.50-5.40); RED CELL DISTRIBUTION WIDTH 15.5 % (11.5-14.5); WHITE BLOOD COUNT 33.7 x10^3/uL (4.0-11.0)
[2018-03-07 16:46] LABS: INR 1.6 (0.8-1.1); PARTIAL THROMBOPLASTIN TIME 34 SEC (24-38)
[2018-03-07 16:55] LABS: ANION GAP 27 (6-14); CALCIUM 7.9 mg/dL (8.5-10.1); CARBON DIOXIDE 13 mmol/L (21-32); CHLORIDE 97 mmol/L (98-107); GFR 6.5; GLUCOSE 132 mg/dL (70-99); POTASSIUM 3.4 mmol/L (3.5-5.1); SODIUM 137 mmol/L (136-145)
[2018-03-07 17:01] LABS: BASE EXCESS ABG -15 mmol/L (-3-3); HCO3 ABG 7 mmol/L (21-28); PH ABG 7.42 (7.35-7.45); PO2 ABG 122 mmHg (75-108); SAT O2 ABG 98 % (92-99)
[2018-03-07 17:02] LABS: PCO2 ABG 11 mmHg (35-46)
[2018-03-07 17:03] LABS: ALBUMIN 1.9 g/dL (3.4-5.0); ALBUMIN/GLOBULIN RATIO 0.3 (1.0-1.7); ALK PHOS 94 U/L (46-116); ALT (SGPT) 7 U/L (14-59); AST (SGOT) 13 U/L (15-37); MAGNESIUM 1.5 mg/dL (1.8-2.4); PHOSPHORUS 6.4 mg/dL (2.6-4.7); TOTAL BILIRUBIN 0.5 mg/dL (0.2-1.0); TOTAL PROTEIN 7.4 g/dL (6.4-8.2)
[2018-03-07 17:11] LABS: LACTIC ACID 2.5 mmol/L (0.4-2.0)
[2018-03-07 17:16] LABS: BLOOD UREA NITROGEN 262 mg/dL (7-20); BUN/CREATININE RATIO 33 (6-20)
[2018-03-07] MEDS ORDERED: IV NORMAL SALINE 1000ML BAG 1,000 ML IV ×2 (17:26)
[2018-03-07] MEDS ORDERED: ALBUMIN HUMAN 25% 200 ML IV (17:30)
[2018-03-07] MEDS ORDERED: DIALYSIS PATIENT. MC ×2 (17:30)
[2018-03-07] MEDS: SODIUM BICARBONATE VIAL 50 MEQ in IV 1/2 NORMAL SALINE 1,000 ML IV (19:14)
[2018-03-07] MEDS ORDERED: VITS A & D/LANOLIN TOPICAL OINTMENT 56GM TUBE. TP (19:15)
[2018-03-07] MEDS ORDERED: EPINEPHrine 1 MG/ML VIAL (19:49)
[2018-03-07] MEDS: MAGNESIUM SULFATE 4GM 100 ML IV (20:01)
[2018-03-07] MEDS: VASOPRESSIN 40 UNIT in IV DEXTROSE 5% 100 ML IV (20:02)
[2018-03-07] MEDS: FAMOTIDINE 20 MG/2 ML VIAL IVP (22:14)
[2018-03-07] MEDS: HEPARIN PF for SUB-Q USE 5,000 UNIT/0.5 ML VIAL. SQ (22:14)
[2018-03-07] MEDS: NYSTATIN TOPICAL POWDER 15GM BOTTLE. TP (22:20)
[2018-03-07] MEDS: PIPERACILLIN/TAZOBACTAM 2.25 GM in IV NORMAL SALINE 50ML 50 ML IV (22:20)
[2018-03-08] MEDS: MINERAL OIL/PETROLATUM,WHITE OPHTH OINT 3.5GM TUBE. OU (00:40)
[2018-03-08] MEDS: SODIUM BICARBONATE VIAL 50 MEQ in IV 1/2 NORMAL SALINE 1,000 ML IV (02:09)
[2018-03-08] MEDS: NOREPINEPHRIN PREMIX 250 ML IV ×2 (03:49→08:38)
[2018-03-08] MEDS: PIPERACILLIN/TAZOBACTAM 2.25 GM in IV NORMAL SALINE 50ML 50 ML IV (06:00)
[2018-03-08 06:31] LABS: POC GLUCOSE 146 mg/dL (70-99)
[2018-03-08 06:33] LABS: ADD MAN DIFF? NO
[2018-03-08 06:37] LABS: BASO # 0.1 x10^3/uL (0.0-0.2); BASO % 0 % (0-3); EOS % 0 % (0-3); HEMATOCRIT 27.7 % (36.0-47.0); LYMPH # 0.6 x10^3/uL (1.0-4.8); LYMPH % 2 % (24-48); MEAN CORPUSCULAR HEMOGLOBIN 26 pg (25-35); MEAN CORPUSCULAR HGB CONC 32 g/dL (31-37); MEAN CORPUSCULAR VOLUME 81 fL (79-100); MONO # 0.5 x10^3/uL (0.0-1.1); MONO % 2 % (0-9); NEUT # 28.7 x10^3uL (1.8-7.7); NEUT % 96 % (31-73); PLATELET COUNT 370 x10^3/uL (140-400); RED CELL DISTRIBUTION WIDTH 16.3 % (11.5-14.5); WHITE BLOOD COUNT 29.9 x10^3/uL (4.0-11.0)
[2018-03-08 07:13] LABS: ANION GAP 33 (6-14); CHLORIDE 96 mmol/L (98-107); CREATININE 6.1 mg/dL (0.6-1.0); GFR 8.9; GLUCOSE 162 mg/dL (70-99); SODIUM 135 mmol/L (136-145)
[2018-03-08] MEDS: HEPARIN PF for SUB-Q USE 5,000 UNIT/0.5 ML VIAL. SQ (07:14)
[2018-03-08 07:15] LABS: BLOOD UREA NITROGEN 168 mg/dL (7-20)
[2018-03-08 07:16] LABS: CARBON DIOXIDE 6 mmol/L (21-32)
[2018-03-08 07:18] LABS: POTASSIUM 4.8 mmol/L (3.5-5.1)
[2018-03-08] MEDS: VASOPRESSIN 40 UNIT in IV DEXTROSE 5% 100 ML IV (08:17)
[2018-03-08] MEDS: MIDAZOLAM 100MG/100ML PREMIX 100 ML IV (08:18)
[2018-03-08 09:33] LABS: BASE EXCESS ABG -26 mmol/L (-3-3); HCO3 ABG 4 mmol/L (21-28); PO2 ABG 130 mmHg (75-108); SAT O2 ABG 97 % (92-99)
[2018-03-08 09:37] LABS: PCO2 ABG 19 mmHg (35-46); PH ABG 6.98 (7.35-7.45)
[2018-03-08 09:38] LABS: FIO2 ABG 50
[2018-03-08] MEDS ORDERED: SODIUM BICARB ADULT 8.4% 50 MEQ/50 ML DISP.SYRIN. (09:47)
[2018-03-08] MEDS: SODIUM BICARB ADULT 8.4% 50 MEQ/50 ML DISP.SYRIN. IV (10:03)
[2018-03-08] MEDS: NYSTATIN TOPICAL POWDER 15GM BOTTLE. TP (10:03)
[2018-03-08] MEDS ORDERED: SODIUM BICARBONATE VIAL 150 MEQ in IV DEXTROSE 5% 1,000 ML IV (10:30)
[2018-03-08] MEDS: VANCOMYCIN PER PHARMACY MC (11:05)
[2018-03-08] MEDS ORDERED: MORPHINE SULFATE 4 MG/ML DISP.SYRIN. IV (11:30)
[2018-03-08 23:13] LABS: MRSA BY PCR Negative (Negative)
[2018-03-09] MEDS ORDERED: FAMOTIDINE 20 MG/2 ML VIAL IVP (09:00)
[2018-03-09] MEDS ORDERED: VANCOMYCIN RANDOM LEVEL. MC (13:00)
[2018-03-09 16:20] LABS: HEP B SURFACE ABDY Non Reactive (.); HEP B SURFACE AG Negative (Negative)
== END 2018-03-08 14:19 | DRG 871 ==
LOC: ER 11:02 → 1 WEST ICU 15:02
PROC: 02H633Z Insertion of Infusion Device into Right Atrium, Percutaneous Approach (ICD-10-PCS; principal; 2018-03-07)
PROC: 5A1945Z Respiratory Ventilation, 24-96 Consecutive Hours (ICD-10-PCS; 2018-03-07)
PROC: B244ZZZ Ultrasonography of Right Heart (ICD-10-PCS; 2018-03-07)
PROC: 0BH17EZ Insertion of Endotracheal Airway into Trachea, Via Natural or Artificial Opening (ICD-10-PCS; 2018-03-07)
PROC: 5A1D70Z Performance of Urinary Filtration, Intermittent, Less than 6 Hours Per Day (ICD-10-PCS; 2018-03-07)
DX: A41.9 Sepsis, unspecified organism (principal); R65.21 Severe sepsis with septic shock; J96.01 Acute respiratory failure with hypoxia; E43 Unspecified severe protein-calorie malnutrition; G92 Toxic encephalopathy; L89.109 Pressure ulcer of unspecified part of back, unspecified stage; N17.9 Acute kidney failure, unspecified; C56.9 Malignant neoplasm of unspecified ovary; I50.32 Chronic diastolic (congestive) heart failure; N39.0 Urinary tract infection, site not specified; Z68.42 Body mass index [BMI] 45.0-49.9, adult; C79.51 Secondary malignant neoplasm of bone; L03.818 Cellulitis of other sites; E66.01 Morbid (severe) obesity due to excess calories; D64.9 Anemia, unspecified; G47.30 Sleep apnea, unspecified; K21.9 Gastro-esophageal reflux disease without esophagitis; M19.90 Unspecified osteoarthritis, unspecified site; N18.9 Chronic kidney disease, unspecified; N28.89 Other specified disorders of kidney and ureter; Z51.5 Encounter for palliative care; Z74.01 Bed confinement status; Z82.49 Family history of ischemic heart disease and other diseases of the circulatory system; Z90.710 Acquired absence of both cervix and uterus
CPT/HCPCS: 36415; 36556; 36600; 70450; 71045; 71250; 74176; 76937; 80048; 80053; 80076; 80202; 81001; 82550; 82805; 82962; 83605; 83690; 83735; 83880; 84100; 84484; 84703; 85007; 85025; 85027; 85610; 85730; 86706; 87040; 87086; 87205; 87340; 87641; 93005; 94002; C1769; C1892; J0330; J1265; J1956; J2250; J2543; J3370; J3475; J3490; J7030; S0028